=== PATIENT | male | born 1960 | race Caucasian/White ===

== ENCOUNTER → 2019-11-07 12:32 | Outpatient (BNVA) | payer MEDICARE, MEDICAID, SELFPAY | PROVIDERS: Family Provider Nurse Practitioner; PCP Nurse Practitioner; Visit Provider Nurse Practitioner Psychiatric/Mental Health | DX: F25.9 Schizoaffective disorder, unspecified (principal); F70 Mild intellectual disabilities | CPT/HCPCS: 99213 ==

== ENCOUNTER 2019-11-22 15:11 | Outpatient (CLI) | payer MEDICARE, MEDICAID, SELFPAY ==
--- NOTE | 2019-11-22 15:45 | USCV_ITS ---
Babar López Age: 59 Gender: M : 1960 Exam Date: 11/22/2019 15:49 Ordering Phys: Meron Robles Technologist: Monica Wray Exam Location: [facility] [place]_ Indication: PAIN CALF PROCEDURES: Venous duplex imaging was performed in only the left lower extremity. The following venous structures were evaluated: common femoral vein, profunda vein, proximal portion of the greater saphenous vein, superficial femoral vein, and the popliteal vein. In addition, the posterior tibial and peroneal trunk were evaluated. Serial compression, augmentation maneuvers, and spectral Doppler flow evaluation were performed. FINDINGS: Normal 2-D Doppler and augmentation and compressibility throughout the lower extremity venous structures. Additional imaging through the proximal calf veins also reveals no thrombus. Limited evaluation of the greater saphenous vein is patent with no thrombus. CONCLUSIONS No DVT left lower extremity. Dr. Saba Gauthier DO (Electronically Signed) Final Date: 22 November 2019 16:00 S
== END 2019-11-22 15:12 | disposition home or self-care (01) ==
LOC: RAD 15:24
PROVIDERS: Family Provider Nurse Practitioner; PCP Nurse Practitioner; Visit Provider Nurse Practitioner
DX: M79.605 Pain in left leg (principal); M79.662 Pain in left lower leg; Z86.718 Personal history of other venous thrombosis and embolism
CPT/HCPCS: 80053; 81003; 85025; 93971

== ENCOUNTER → 2020-01-02 14:59 | Outpatient (BNVA) | payer MEDICARE, MEDICAID, SELFPAY | PROVIDERS: Family Provider Nurse Practitioner; PCP Nurse Practitioner; Visit Provider Nurse Practitioner Psychiatric/Mental Health | DX: F25.9 Schizoaffective disorder, unspecified (principal); F79 Unspecified intellectual disabilities | CPT/HCPCS: 99212 ==

== ENCOUNTER → 2020-02-28 13:50 | Outpatient (BNVA) | payer MEDICARE, MEDICAID, SELFPAY | PROVIDERS: Family Provider Nurse Practitioner; PCP Nurse Practitioner; Visit Provider Nurse Practitioner | DX: R11.10 Vomiting, unspecified (principal); R11.2 Nausea with vomiting, unspecified | CPT/HCPCS: 81000 ==

== ENCOUNTER 2020-03-05 06:50 | Emergency (ER) | payer MEDICARE, MEDICAID, SELFPAY ==
[2020-03-05 07:06] VITALS: BP 123/83; PULSE 90; RESP 16; TEMP 37; O2SAT 98; BMI 22.5
--- NOTE | 2020-03-05 07:22 | ED_ITS ---
HPI - GI Bleed General: Chief complaint: GI Bleed Stated complaint: BLOODY STOOL/n/v Time Seen by Provider: 03/05/20 07:12 History of Present Illness: HPI Narrative: Mr. López Eckert is a pleasant MR schizo affective disorder patient to does not communicate very well. His caregiver says that he had some sickness earlier this week with nausea was was seen by DELICATESS[employer] DEPARTMENT MANAGER and and placed on some antinausea medication. She notes this morning that he threw up and it seemed to be dark possibly tarry and then also in his depends that he is wearing that he had a tarry-like substance. He has not been sick besides nausea he is now had no other instances of this occurring. MD complaint: melena and other (Possible gastric tar-like substance in his vomit x1 he did throw up on the way in and his caregiver brought the contents of that and it does not appear to have any blood in) Onset (ago): hour(s) Associated symptoms: Reports no associated symptoms and vomiting; Denies abdominal pain, chills, easy bruising, fever(s), headache(s), nausea or rash Review of Systems Const: Denies: fever, chills or body aches Eyes: Denies: change in vision or blurry vision ENMT: Denies: throat pain or nasal congestion Card: Denies: chest pain or shortness of breath on exertion Resp: Denies: shortness of breath, productive cough or non-productive cough GI: Reports: vomiting, coffee grounds in vomit (Possibly) and black tarry stool; Denies: abdominal pain or nausea : Denies: difficulty urinating Musc: Denies: extremity pain Skin/Breast: Denies: rash Neuro: Denies: headache Psych: Denies: anxiety or depression Bennett/Lymph: Denies: easy bruising PFSH ED PFSH: Social History Smoking and tobacco status: never smoked Alcohol intake: never Caregiver/support person: Yes (sister) Lives independently: No Household members: family Housing: House Marital status: Single Highest education level completed: High School Graduate service: No Current occupational status: disabled Pets and animals: Yes History of recent travel: No Current gender identity: Male Physical Exam Const: COMMON NORMALS: no apparent distress, average body habitus and oriented x3 HENMT: COMMON NORMALS: normocephalic HEAD & SCALP: normal to inspection and normocephalic FACE & SINUS: normal facial exam Eye: COMMON NORMALS: conjunctivae normal GENERAL EYE: normal appearance of both eyes CONJUNCTIVA: Yes conjunctivae normal Neck/C-Spine: COMMON NORMALS: no JVD Chest: COMMONS NORMALS: inspection of chest normal Resp: COMMON NORMALS: normal respiratory effort and clear to auscultation bilaterally AUSCULTATION: clear to auscultation bilaterally Cardio: COMMON NORMALS: no JVD, regular rate and regular rhythm RATE: regular rate RHYTHM: regular rhythm GI: COMMON NORMALS: normal to inspection, nondistended, normoactive bowel sounds RECTAL EXAM: Yes visual inspection normal, Yes normal sphincter tone and Yes heme positive stool trace Extremity: COMMON NORMALS: normal to inspection and full ROM Neuro: COMMON NORMALS: oriented x3 Procedures Stool Hemoccult Procedural Steps Taken: stool placed in appropriate test area, developer placed on stool and control areas and controls appropriately positive and negative Hemoccult result: positive (mildly) Course Vital Signs: Vital signs: Vital Signs Temperature 98.6 F 03/05/20 07:06 Pulse Rate 79 03/05/20 10:04 Respiratory Rate 15 03/05/20 10:04 Blood Pressure 151/86 03/05/20 10:04 Pulse Oximetry 97 03/05/20 10:04 MDM - GI Bleed MDM Narrative: Medical decision making narrative: Discussed case and lab (increased WBC and mild renal problems )and imaging results with Dr. Weber. agrees with plan. Lab Data: Labs: Lab Results 03/05/20 03/05/20 03/05/20 Range/Units 07:17 07:17 07:56 WBC 15.3 H (4.0-10.0) 10^3/ uL RBC 5.09 (4.1-5.3) 10^6/u L Hgb 14.9 (11.7-16.6) g/dL Hct 43.7 (42.0-52.0) % MCV 85.9 (80-94) fL MCH 29.3 (28.0-34.0) pg MCHC 34.1 (30.0-36.0) g/dL RDW 13.2 (12.1-15.1) % Plt Count 322 (130-400) 10^3/c mm MPV 10.0 (7.4-10.4) fL Neut % (Auto) 93.6 % Lymph % (Auto) 2.2 % [place] % (Auto) 3.8 % Eos % (Auto) 0.0 % Baso % (Auto) 0.1 % Neut # (Auto) 14.4 H (1.8-7.7) 10^3/u L Lymph # (Auto) 0.3 L (0.8-4.8) 10^3/u L [place] # (Auto) 0.6 (0.2-0.9) 10^3/u L Eos # (Auto) 0.0 (0.0-0.8) 10^3/u L Baso # (Auto) 0.0 (0.0-0.1) 10^3/u L Nucleated RBC % (a uto) 0 % Nucleated RBCs # 0.0 /100WBC Sodium 142 (136-145) mmol/L Potassium 4.2 (3.5-5.1) mmol/L Chloride 97 L (98-107) mmol/L Carbon Dioxide 32 H (22-29) mmol/L Anion Gap 17.2 (5-19) BUN 17 (8-23) mg/dL Creatinine 1.5 H (0.7-1.2) mg/dL GFR Calculation 47.7 L (90-130) mL/min Glucose 169 H (65-115) mg/dL Calculated Osmolal ity 294 (285-295) mOsm/k g Calcium 10.3 (8.5-10.5) mg/dL Total Bilirubin 0.6 (0.15-1.2) mg/dL AST 14 (0-40) U/L ALT 11 (0-41) U/L Alkaline Phosphata se 63 (40-130) IU/L Total Protein 8.2 (6.6-8.7) g/dL Albumin 4.5 (3.5-5.2) g/dL Globulin 3.7 (1.3-4.6) g/dL Lipase 55 (13-60) U/L Urine Color Yellow (Yellow) Urine Appearance Clear (CLEAR) Urine pH 5.0 (5-7) Ur Specific Gravit y 1.020 (1.005-1.030) Urine Protein Trace (Negative) Urine Glucose (UA) Norm (Normal) Urine Ketones 2+ H (Negative) Urine Blood Neg (Negative) Urine Nitrate Negative (Negative) Urine Bilirubin 1+ H (NEGATIVE) Urine Urobilinogen 1 H (Negative) mg/dL Ur Leukocyte Hannah ase Negative (Negative) Urine RBC 5-10 H (0-2) /hpf Urine WBC None (0-5) /hpf Ur Squamous Epith Cells 0-4 H (0-5) Urine Bacteria 1+ H (NONE) Hyaline Casts 5-10 H Urine Mucus 1+ Discharge Plan Discharge Patient Disposition: Home, Self-Care Clinical Impression: Melena Nausea with vomiting, unspecified Qualifiers: Vomiting type: hematemesis Qualified Code(s): K92.0 - Hematemesis Condition: Stable Prescriptions: New Zofran 4 mg tablet 4 mg PO Q8H PRN (Reason: nausea and vomiting) Qty: 20 RF: 0 Tagamet HB 200 mg tablet 200 mg PO TID Qty: 20 RF: 0 No Action cholecalciferol (vitamin D3) 5,000 unit capsule 5,000 unit PO DAILY RF: 0 aspirin 81 mg tablet,chewable 1 tab PO DAILY RF: 0 Risperdal Consta 37.5 mg/2 mL syringe 37.5 mg IM Q14D Qty: 1 RF: 6 meclizine 25 mg tablet 25 mg PO BID Qty: 10 RF: 0 montelukast [Singulair] 10 mg tablet 10 mg PO DAILY Qty: 30 RF: 1 simvastatin 20 mg tablet 20 mg PO DAILY Qty: 30 RF: 2 Risperdal 2 mg tablet 4 mg PO BEDTIME RF: 0 Lexapro 10 mg tablet 10 mg PO QAM RF: 0 Discharge Orders: Discharge Order (Routine); Ordered 03/05/20 Ordered By: Germain Thomas Referrals: Meron Robles FNP-C [Primary Care Provider] - Discharge Diet: Advance as tolerated Discharge Activity: Resume usual activity Patient Instructions: Gastrointestinal Bleeding (ED) Activity Restrictions/Additional Instructions: Follow-up with medical provider as directed. Take medications as prescribed. Return to the ER or your medical provider if condition worsens. Please read and understand discharge instructions. If any questions ask please. Follow-up with Meron TAVERAS to see about possible referral for gastroscope. Drink lots of fluid. Discharge Date/Time: 03/05/20 10:04 Coding Level of Care Code ED Element Winding Machine Tender for Chg Fwd Exam Comprehensive
--- NOTE | 2020-03-05 07:23 | CT_ITS ---
WS: [id number] CT abdomen pelvis w con* [id number] REASON FOR EXAM: GI bleed IV CONTRAST ADMINISTERED: Visi 95 mL TOTAL EXAM DLP: 611.[address] scans at [facility] use at least one of these dose optimization techniques: automat ed exposure control; mA and/or kV adjustment per patient size (includes targeted exams where dose is matched to clinical indication); or iterative reconstruction. FINDINGS: A hiatal hernia is noted. The lower lung parekh and mediastinum were normal. Interposition of the colon between the diaphragm and liver. The spleen was normal The stomach showed no definite ulcerated areas. The pancreas head, body, tail were normal. The liver showed no infiltrating changes showed normal enhancement. The aorta inferior vena cava were normal. Previous cholecystectomy changes. Both kidneys show good function the left kidney shows multiple small cysts. The ureters were normal bilaterally. The large bowel was normal including the appendix. Small bowel appear to be normal. The descending colon shows multiple diverticulosis. The sigmoid colon also shows scattered diverticul osis. The urinary bladder slightly thickened The prostate was normal. The lumbar spine and pelvis bony structures were normal. CT/CT abdomen pelvis w con* [id number] IMPRESSION: Extensive diverticulosis of the descending sigmoid colon area no diverticulitis . Status post cholecystectomy. The left kidney shows multiple small benign cysts. A hiatal hernia is noted Interposition of the colon between the diaphragm and liver.
[2020-03-05 07:30] LABS: Basophils % 0.1 %; Hematocrit 43.7 % (42.0-52.0); Hemoglobin 14.9 g/dL (11.7-16.6); Lymphocytes # 0.3 10^3/uL (0.8-4.8); Lymphocytes % 2.2 %; Mean Corpuscular HGB Conc 34.1 g/dL (30.0-36.0); Mean Corpuscular Hemoglobin 29.3 pg (28.0-34.0); Mean Corpuscular Volume 85.9 fL (80-94); Monocytes # 0.6 10^3/uL (0.2-0.9); Monocytes % 3.8 %; Neutrophils # 14.4 10^3/uL (1.8-7.7); Neutrophils % 93.6 %; Nucleated Red Blood Cells % 0 %; Platelet Count 322 10^3/cmm (130-400); Red Blood Count 5.09 10^6/uL (4.1-5.3); Red Cell Distribution Width 13.2 % (12.1-15.1); White Blood Count 15.3 10^3/uL (4.0-10.0)
[2020-03-05 07:47] LABS: Alanine Aminotransferase 11 U/L (0-41); Albumin Level 4.5 g/dL (3.5-5.2); Alkaline Phosphatase 63 IU/L (40-130); Anion Gap 17.2 (5-19); Aspartate Amino Transferase 14 U/L (0-40); Blood Urea Nitrogen 17 mg/dL (8-23); Calcium 10.3 mg/dL (8.5-10.5); Carbon Dioxide 32 mmol/L (22-29); Chloride 97 mmol/L (98-107); Globulin 3.7 g/dL (1.3-4.6); Glomerular Filtration Rate 47.7 mL/min (90-130); Glucose 169 mg/dL (65-115); Lipase 55 U/L (13-60); Osmolality Calculated 294 mOsm/kg (285-295); Potassium 4.2 mmol/L (3.5-5.1); Sodium 142 mmol/L (136-145); Total Bilirubin 0.6 mg/dL (0.15-1.2); Total Protein 8.2 g/dL (6.6-8.7)
[2020-03-05] MEDS: iodixanol 320 mg/mL 100mL Btl IV (08:07)
[2020-03-05] MEDS: ondansetron 2 mg/ML SDV 2 mL 4 MG IVP (08:19)
[2020-03-05 08:23] LABS: Add Urine Microscopic? YES; Bacteria Urine 1+; Bilirubin Urine 1+ (NEGATIVE); Blood Urine Neg (Negative); Glucose Urine UA Norm (Normal); Ketones Urine 2+ (Negative); Leukocyte Esterase Urine Negative (Negative); Mucus Urine 1+; Nitrate Urine Negative (Negative); Protein Urine Trace (Negative); Squamous Epithelial Cell Urine 0-4 (0-5); Urine Appearance Clear (CLEAR); Urine Color Yellow (Yellow); Urobilinogen Urine 1 mg/dL (Negative)
[2020-03-05 08:24] LABS: Add Urine Culture? No
[2020-03-05 10:04] VITALS: BP 151/86; PULSE 79; RESP 15; O2SAT 97
== END 2020-03-05 10:04 | disposition home or self-care (01) ==
PROVIDERS: Emergency Provider Nurse Practitioner Family; Family Provider Nurse Practitioner; PCP Nurse Practitioner
DX: K92.1 Melena (principal); K92.0 Hematemesis; Z79.82 Long term (current) use of aspirin
CPT/HCPCS: 12345; 74177; 80053; 81001; 82272; 83690; 85025; 96374; 96375; 99282; 99283; J2405; Q9967

== ENCOUNTER → 2020-03-08 15:09 | Outpatient (BNVA) | payer MEDICARE, MEDICAID, SELFPAY | PROVIDERS: Family Provider Nurse Practitioner; PCP Nurse Practitioner; Visit Provider Nurse Practitioner | DX: K52.9 Noninfective gastroenteritis and colitis, unspecified (principal); K29.71 Gastritis, unspecified, with bleeding | CPT/HCPCS: 85014; 85018 ==

== ENCOUNTER → 2020-03-11 15:05 | Outpatient (BNVA) | payer MEDICARE, MEDICAID, SELFPAY | PROVIDERS: Family Provider Nurse Practitioner; PCP Nurse Practitioner; Visit Provider Nurse Practitioner | DX: I10 Essential (primary) hypertension (principal); K92.2 Gastrointestinal hemorrhage, unspecified | CPT/HCPCS: 80053; 85025 ==

== ENCOUNTER → 2020-04-04 08:35 | Outpatient (BNVA) | payer MEDICARE, MEDICAID, SELFPAY | PROVIDERS: Family Provider Nurse Practitioner; PCP Nurse Practitioner; Visit Provider Nurse Practitioner Psychiatric/Mental Health | DX: F25.9 Schizoaffective disorder, unspecified (principal); F79 Unspecified intellectual disabilities | CPT/HCPCS: 99212 ==

== ENCOUNTER → 2020-04-17 16:22 | Outpatient (BNVA) | payer MEDICARE, MEDICAID, SELFPAY | PROVIDERS: Family Provider Nurse Practitioner; PCP Nurse Practitioner; Visit Provider Nurse Practitioner | DX: K29.71 Gastritis, unspecified, with bleeding (principal); I10 Essential (primary) hypertension | CPT/HCPCS: 80053; 81000; 85025 ==

== ENCOUNTER → 2020-07-04 08:37 | Outpatient (BNVA) | payer MEDICARE, MEDICAID, SELFPAY | PROVIDERS: Family Provider Nurse Practitioner; PCP Nurse Practitioner; Visit Provider Nurse Practitioner Psychiatric/Mental Health | DX: F25.9 Schizoaffective disorder, unspecified (principal); F79 Unspecified intellectual disabilities | CPT/HCPCS: 99212 ==

== ENCOUNTER → 2020-07-18 15:56 | Outpatient (BNVA) | payer MEDICARE, MEDICAID, SELFPAY | PROVIDERS: Family Provider Nurse Practitioner; PCP Nurse Practitioner; Visit Provider Nurse Practitioner | DX: E78.5 Hyperlipidemia, unspecified (principal); R73.03 Prediabetes | CPT/HCPCS: 80053; 80061; 83036; 85025 ==

== ENCOUNTER → 2020-10-03 08:36 | Outpatient (BNVA) | payer MEDICARE, MEDICAID, SELFPAY | PROVIDERS: Family Provider Nurse Practitioner; PCP Nurse Practitioner; Visit Provider Nurse Practitioner Psychiatric/Mental Health | DX: F25.9 Schizoaffective disorder, unspecified (principal); F79 Unspecified intellectual disabilities | CPT/HCPCS: G0463 ==

== ENCOUNTER → 2020-10-10 16:42 | Outpatient (BNVA) | payer MEDICARE, MEDICAID, SELFPAY | PROVIDERS: Family Provider Nurse Practitioner; PCP Nurse Practitioner; Visit Provider Nurse Practitioner | DX: E78.5 Hyperlipidemia, unspecified (principal); J30.9 Allergic rhinitis, unspecified; K29.70 Gastritis, unspecified, without bleeding | CPT/HCPCS: 80053; 80061; 85025 ==

== ENCOUNTER → 2020-12-02 12:00 | Outpatient (BNVA) | payer MEDICARE, MEDICAID, SELFPAY | PROVIDERS: Family Provider Nurse Practitioner; PCP Nurse Practitioner; Visit Provider Nurse Practitioner | DX: R10.9 Unspecified abdominal pain (principal) | CPT/HCPCS: 80053; 85025 ==

== ENCOUNTER → 2020-12-31 09:02 | Outpatient (BNVA) | payer MEDICARE, MEDICAID, SELFPAY | PROVIDERS: Family Provider Nurse Practitioner; PCP Nurse Practitioner; Visit Provider Nurse Practitioner Psychiatric/Mental Health | DX: F25.9 Schizoaffective disorder, unspecified (principal); F79 Unspecified intellectual disabilities | CPT/HCPCS: 99213 ==

== ENCOUNTER 2021-01-15 21:18 | Emergency (ER) | payer MEDICARE, MEDICAID, SELFPAY ==
[2021-01-15 21:40] VITALS: BP 117/84; PULSE 69; RESP 14; TEMP 36.9; O2SAT 97; BMI 22.4
--- NOTE | 2021-01-15 21:43 | XR_ITS ---
WS: [id number] XR chest 1V portable [id number] REASON FOR EXAM: cough and URI symptoms FINDINGS: The heart and mediastinum are within normal limits. Calcified granulomatous changes in both hemithoraces. No active pulmonary parenchymal or pleural dise ase. No significant abnormality of the bony thorax. XR/XR chest 1V portable [id number] IMPRESSION: No acute chest abnormality.
--- NOTE | 2021-01-15 21:44 | ED_ITS ---
HPI - COVID General: Chief Complaint: COVID symptoms Stated Complaint: cough,upper respiratory issues Time Seen by Provider: 01/15/21 21:38 Triage information: No fever, cough or shortness of breath . No known COVID + exposure last 14 days History of Present Illness: HPI Narrative: Patient has a 60-year-old male who comes to the ED with cough and fatigue. Patient has MR and his sister helps take care of him. She is here today and helping provide history. Symptoms started approximately 3 days ago. Cough is dry nonproductive. He had a fever couple days ago but today has not had a fever. He is eating and drinking well. denies any known Covid exposure. Denies any body aches, chills, chest pain, shortness of breath, abdominal pain, nausea/vomiting, bladder or bowel symptoms. COVID 19 common symptoms: positive fever(s), non-productive cough and fatigue; negative chills, productive cough, dyspnea, body aches, headache(s), throat pain, nasal congestion, nausea, vomiting or diarrhea COVID 19 other sytmptoms: negative chest pain COVID Results: Nasal/Oral Coronavirus 2019 PCR Pending 01/15/21 22:09 01/15/21 Review of Systems Const: Reports: fever(s) and fatigue; Denies: chills or body aches Eyes: Denies: change in vision or eye discomfort ENMT: Denies: throat pain, odynophagia, nasal discharge or nasal congestion Card: Denies: chest pain, palpitations, edema, swelling of feet/ankles, dyspnea on exertion or orthopnea Resp: Reports: non-productive cough; Denies: dyspnea or productive cough GI: Denies: abdominal pain, nausea, vomiting, diarrhea, constipation or hematochezia : Denies: flank pain, difficulty urinating, dysuria or hematuria Musc: Denies: neck pain, back pain or extremity swelling Skin/Breast: Denies: rash or new lesions Neuro: Denies: headache(s), numbness in extremities or weakness in extremities PFSH ED PFSH: Medical History Allergic rhinitis, unspecified Dyslipidemia Gastritis, unspecified, with bleeding GERD without esophagitis History of DVT (deep vein thrombosis) History of seizures as a child Hypertension Intellectual disability Schizoaffective disorder Vitamin D insufficiency Surgical History No history of previous surgery Family History Father Cancer Colon Cancer Social History Smoking and tobacco status: never smoked Second hand smoke exposure: No Smoking risk assessment/counseling performed?: No Alcohol intake: never Desire information about alcohol rehabilitation?: No Counseling given: No Desire information about substance/drug rehabilitation?: No Counseling given: No Caregiver/support person: Yes (sister) Lives independently: No Household members: family Housing: House Marital status: Single Highest education level completed: High School Graduate service: No Current occupational status: disabled Pets and animals: Yes History of recent travel: No Current gender identity: Male Physical Exam Const: COMMON NORMALS: no acute distress, patient oriented x3 and alert EXAM LIMITATIONS: other limitations (Patient has intellectual disability and did not communicate during history ) GENERAL APPEARANCE: cooperative and comfortable HENMT: COMMON NORMALS: normocephalic HEAD & SCALP: normocephalic MOUTH: Normal oral and palatal mucosa present THROAT: posterior oropharynx normal and uvula midline Neck/C-Spine: COMMON NORMALS: supple GENERAL: Yes normal visual inspection Resp: COMMON NORMALS: normal respiratory effort, No retractions and No use of accessory muscles EFFORT & INSPECTION: No tachypneic, No respiratory distress and No labored AUSCULTATION: crackles (Left lower lung faint crackling?all other lung parekh were clear to auscult) Laterality: left (Faint crackling heard to the left posterior base of lung.) Cardio: COMMON NORMALS: regular rate, regular rhythm, S1 normal heart sound present, S2 normal heart sound present, No gallops present (Cardio), No clicks present (Cardio), No murmurs present (Cardio) and Peripheral pulses 2+ throughout RATE: regular rate RHYTHM: regular rhythm HEART SOUNDS: S1 normal heart sound present and S2 normal heart sound present PERIPHERAL PULSES: Peripheral pulses 2+ throughout GI: COMMON NORMALS: Normal to inspection, nondistended, normoactive bowel sounds present, Soft to palpation, non-tender and no masses PALPATION: Yes Soft to palpation : COMMON NORMALS: Yes no CVA tenderness BLADDER/KIDNEY EXAM: Yes no CVA tenderness Back/Pelvis: COMMON NORMALS: no CVA tenderness Extremity: COMMON NORMALS: normal to inspection Neuro: COMMON NORMALS: patient oriented x3 and moves all extremities SENSORIUM/ORIENTATION: Yes alert Skin: GENERAL SKIN EXAM: dry skin Course Vital Signs: Vital signs: Vital Signs Temperature 98.4 F 01/15/21 21:40 Pulse Rate 63 01/15/21 23:24 Respiratory Rate 18 01/15/21 23:24 Blood Pressure 109/73 01/15/21 23:24 Pulse Oximetry 95 01/15/21 23:24 MDM - COVID MDM Narrative: Medical decision making narrative: Patient is a 60-year-old male comes to the ED with cough and fatigue. Patient has an intellectual disability and his sister helps take care of him and is present here in the ED. She says that for the past couple days patient has developed a cough a fever and seems fatigued. Exam shows some mild crackling in the lower left lung field and the rest of patient's lungs were clear to auscultation bilaterally. He appears in no acute respiratory distress and vitals are stable. Chest x-ray shows some developing infiltrates in the left lower lobe. Influenza was negative and Covid testing is pending. Patient was given a dose of azithromycin and Solu-Medrol while here in the ED. He was diagnosed with pneumonia and discharged home with azithromycin prescription. Told to follow-up with PCP in 7 to 10 days for reevaluation. Return to ED precautions given. Patient and patient's sister understood and agreed with plan. Lab Data: Attestation: I reviewed the patient's lab results. Labs: Lab Results 01/15/21 Range/Units 22:09 Influenza Type A A g Negative (Negative) Influenza Type B A g Negative (Negative) Imaging Data: CXR: Attestation: I personally reviewed and interpreted this imaging study as follows: My impression: Chest x-ray shows left lower lobe infiltrate developing. Findings suggestive of pneumonia. COVID Results: Nasal/Oral Coronavirus 2019 PCR Pending 01/15/21 22:09 01/15/21 Discharge Plan Discharge Patient Disposition: Home Clinical Impression: Pneumonia Qualifiers: Pneumonia type: due to unspecified organism Laterality: left Lung location: lower lobe of lung Qualified Code(s): J18.9 - Pneumonia, unspecified organism Condition: Stable Prescriptions: New azithromycin 250 mg tablet 250 mg PO DAILY 4 Days Qty: 4 RF: 0 No Action cholecalciferol (vitamin D3) 5,000 unit capsule 5,000 unit PO DAILY RF: 0 simvastatin 20 mg tablet 20 mg PO DAILY Qty: 90 RF: 1 montelukast [Singulair] 10 mg tablet 10 mg PO DAILY Qty: 90 RF: 1 sucralfate [Carafate] 100 mg/mL suspension 10 ml PO TID PRN (Reason: acid reflux) Qty: 560 RF: 1 Lexapro 10 mg tablet 10 mg PO QAM Qty: 30 RF: 2 Risperdal 2 mg tablet 4 mg PO BEDTIME Qty: 60 RF: 2 Risperdal Consta 37.5 mg/2 mL suspension,extended rel recon 37.5 mg IM Q14D Qty: 1 RF: 5 Discharge Orders: Discharge ED (Routine); Ordered 01/15/21 Ordered By: Abdi Stahl Referrals: Meron Robles, EDGE FINISHER-C [Primary Care Provider] - Discharge Diet: Regular Discharge Activity: Limit activity as instructed Patient Instructions: Pneumonia (ED) Activity Restrictions/Additional Instructions: Follow-up with medical provider as directed in 7-10 days. COVID testing was performed and sent to lab and results will be back in 1 to 2 days. [facility] should contact you to let you know Covid results, but you can also contact [facility] to find out results as well. Self quarantine until you get Covid results. If positive self quarantine for the next 12 days. Take ibuprofen or Tylenol for fevers. Drink plenty of fluids and stay hydrated. Symptom management with [id number] cough and nasal decongestant meds. Return to the ER or your medical provider if condition worsens. Please read and understand discharge instructions. If any questions, please ask Coding Level of Care Code ED Tabber for Brenda Fwd Exam Comprehensive
[2021-01-15 22:09] VITALS: O2SAT 96
[2021-01-15 22:41] LABS: Influenza A by IFA Negative (Negative); Influenza B by IFA Negative (Negative)
[2021-01-15] MEDS: azithromycin 250 mg Tablet 500 MG PO (23:15)
[2021-01-15 23:24] VITALS: BP 109/73; PULSE 63; RESP 18; O2SAT 95
[2021-01-16 14:10] LABS: Coronavirus Test Green County Not Detected
--- NOTE | 2021-01-16 16:10 | PC.NURSE ---
Patient notified of COVID results at this time.
== END 2021-01-15 23:24 | disposition home or self-care (01) ==
PROVIDERS: Emergency Provider Physician Assistant; PCP Nurse Practitioner
DX: J18.9 Pneumonia, unspecified organism (principal); E78.5 Hyperlipidemia, unspecified; I10 Essential (primary) hypertension
CPT/HCPCS: 71045; 87635; 87804; 96372; 99283; J2930; Q0144

== ENCOUNTER → 2021-04-03 08:09 | Outpatient (BNVA) | payer MEDICARE, MEDICAID, SELFPAY | PROVIDERS: PCP Nurse Practitioner; Visit Provider Nurse Practitioner Psychiatric/Mental Health | DX: F25.9 Schizoaffective disorder, unspecified (principal); F79 Unspecified intellectual disabilities | CPT/HCPCS: 99213 ==

== ENCOUNTER 2021-06-05 12:38 | Emergency (ER) | payer MEDICARE, MEDICAID, SELFPAY ==
[2021-06-05 13:27] VITALS: BP 110/72; PULSE 80; RESP 19; TEMP 37.2; O2SAT 95
[2021-06-05 17:32] VITALS: BP 128/73; PULSE 90; RESP 18; O2SAT 98
[2021-06-05 18:11] LABS: Alanine Aminotransferase 7 U/L (0-41); Albumin Level 4.1 g/dL (3.5-5.2); Alkaline Phosphatase 57 IU/L (40-130); Aspartate Amino Transferase 10 U/L (0-40); Blood Urea Nitrogen 18 mg/dL (8-23); Calcium 8.9 mg/dL (8.5-10.5); Carbon Dioxide 28 mmol/L (22-29); Chloride 102 mmol/L (98-107); Globulin 2.8 g/dL (1.3-4.6); Glomerular Filtration Rate 68.1 mL/min (90-130); Glucose 95 mg/dL (65-115); Lipase 33 U/L (13-60); Osmolality Calculated 294 mOsm/kg (285-295); Sodium 141 mmol/L (136-145); Total Bilirubin 0.7 mg/dL (0.15-1.2); Total Protein 6.9 g/dL (6.6-8.7)
[2021-06-05 18:14] LABS: SARS Covid-2 Antigen Negative (Negative)
--- NOTE | 2021-06-05 18:16 | W.ED.GENADLT ---
HPI - General Adult General: Chief complaint: Abdominal Pain Stated complaint: ULCER PROBLEMS,STATES COFFEE GROUND EMESIS Time Seen by Provider: 06/05/21 16:12 History of Present Illness: HPI narrative: Patient is a 61-year-old male with a history of peptic ulcer medically treated on Carafate presenting to emergency room after 1 episode of coffee-ground emesis earlier today. Per patient's caregiver, patient was noted to have mild epigastric pain and earlier this morning, vomited coffee-ground substance with clots and streaks of blood. Of note, earlier this year, patient underwent a EGD study and has multiple ulcers in the stomach. Patient denies any melena or hematochezia. Patient was told by his primary care provider to go to the emergency room for evaluation. No chest complaints of chest pain, shortness of breath, cough, runny nose sore throat, fever/CHILLS or urinary symptoms. Onset: 7 hrs ago Duration: 1 episode Location: home Intensity: moderate Review of Systems Narrative: Constitutional: no subjective fever, no generalized weakness HEENT: No vision changes CV: No chest pain, no palpitations PULM: no cough, nodyspnea. GI: + mild abdominal pain, no N/V/D. +coffee ground emesis : No dysuria MSKEL: No muscle pain SKIN: No new rashes, no lesions. NEURO: No headache, no focal weakness. HEME: No visible bruises PSYCH: Normal mood PFSH ED PFSH: Medical History Allergic rhinitis, unspecified Dyslipidemia Gastritis, unspecified, with bleeding GERD without esophagitis History of DVT (deep vein thrombosis) History of seizures as a child Hypertension Intellectual disability Schizoaffective disorder Vitamin D insufficiency Surgical History No history of previous surgery Family History Father Cancer Colon Cancer Social History Smoking and tobacco status: never smoked Second hand smoke exposure: No Smoking risk assessment/counseling performed?: No Alcohol intake: never Desire information about alcohol rehabilitation?: No Counseling given: No Desire information about substance/drug rehabilitation?: No Counseling given: No Caregiver/support person: Yes (sister) Lives independently: No Household members: family Housing: House Marital status: Single Highest education level completed: High School Graduate service: No Current occupational status: disabled Pets and animals: Yes History of recent travel: No Current gender identity: Male Physical Exam Narrative: EXAM NARRATIVE: Head: Atraumatic Eyes: PERRL, conjunctiva without injection ENT: Mucous membrane moist NECK: Supple without lymphadenopathy LUNGS: LCAB, no crackles/rhonchi or rales CV: RRR ABDOMEN: Soft, mild midepigastric tenderness to palpation, no guarding or rebound tenderness EXTREMITY: Normal ROM SKIN: No rash or erythema NEURO: Awake and alert. No focal motor deficits. PSYCH: Normal mood and affect. Rectal: no melena or hemoocult blood in stool Course Vital Signs: Vital signs: Vital Signs Temperature 98.7 F 06/05/21 21:20 Pulse Rate 58 L 06/05/21 21:20 Respiratory Rate 18 06/05/21 21:20 Blood Pressure 132/76 06/05/21 21:20 Pulse Oximetry 98 06/05/21 21:20 MDM - General Adult MDM Narrative: Medical decision making narrative: [61]yo patient w/ hx of peptic presenting to the ED w/ + abdominal pain + mixed coffee ground x 1 episode. Given history and exam patient?s presentation most consistent with upper GI bleed possibly secondary to peptic ulcer disease or variceal bleeding. History, presentation, exam and wokrup unlikely to be aortoenteric fistula, ENT bleeding mimic, Boerhaave?s/retching, Pulmonary bleeding mimic, or dieulafoy lesion. Workup: CBC, BMP, LFTs, Lipase, PT/INR, Type and Screen, lactic acid, blood culture, EKG, and XR chest. No hx of variceal bleeding Interventions: 1L NS Protonix 40mg IVP Patient is stable today. Patient is noted to mildly hemoconcentrated 15.2. Would not transfuse today. Given ongoing Covid situation with no floor beds at this time, patient will be transferred to outside hospital for further evaluation including EGD. Case discussed with Dr. Ford at [facility] in [place]. Disposition: Transfer to outside hospital. Lab Data: Labs: Lab Results 06/05/21 06/05/21 06/05/21 Range/Units 16:32 16:32 16:32 WBC 6.4 (4.0-10.0) 10^3/ uL RBC 4.89 (4.1-5.3) 10^6/u L Hgb 15.2 (11.7-16.6) g/dL Hct 43.1 (42.0-52.0) % MCV 88.1 (80-94) fL MCH 31.1 (28.0-34.0) pg MCHC 35.3 (30.0-36.0) g/dL RDW 12.7 (12.1-15.1) % Plt Count 249 (130-400) 10^3/c mm MPV 10.2 (7.4-10.4) fL Neut % (Auto) 74.3 % Lymph % (Auto) 17.9 % Major % (Auto) 7.1 % Eos % (Auto) 0.2 % Baso % (Auto) 0.3 % Neut # (Auto) 4.74 (1.8-7.7) 10^3/u L Lymph # (Auto) 1.1 (0.8-4.8) 10^3/u L Major # (Auto) 0.5 (0.2-0.9) 10^3/u L Eos # (Auto) 0.0 (0.0-0.8) 10^3/u L Baso # (Auto) 0.0 (0.0-0.1) 10^3/u L Nucleated RBC % (a uto) 0 % Nucleated RBCs # 0.0 /100WBC PT (12.1-14.9) SECO NDS INR (0.8-1.2) APTT (23.9-36.7) SECO NDS Sodium 141 (136-145) mmol/L Potassium 3.9 (3.5-5.1) mmol/L Chloride 102 (98-107) mmol/L Carbon Dioxide 28 (22-29) mmol/L Anion Gap 14.9 (5-19) BUN 18 (8-23) mg/dL Creatinine 1.1 (0.7-1.2) mg/dL GFR Calculation 68.1 L (90-130) mL/min Glucose 95 (65-115) mg/dL Calculated Osmolal ity 294 (285-295) mOsm/k g Calcium 8.9 (8.5-10.5) mg/dL Total Bilirubin 0.7 (0.15-1.2) mg/dL AST 10 (0-40) U/L ALT 7 (0-41) U/L Alkaline Phosphata se 57 (40-130) IU/L Total Protein 6.9 (6.6-8.7) g/dL Albumin 4.1 (3.5-5.2) g/dL Globulin 2.8 (1.3-4.6) g/dL Lipase 33 (13-60) U/L H. pylori IgG Anti body Negative (Negative) SARS-CoV-2 Ag (Rap id) (Negative) Blood Type Rho(D) Type Antibody Screen 06/05/21 06/05/21 06/05/21 Range/Units 17:42 19:58 20:07 WBC (4.0-10.0) 10^3/ uL RBC (4.1-5.3) 10^6/u L Hgb (11.7-16.6) g/dL Hct (42.0-52.0) % MCV (80-94) fL MCH (28.0-34.0) pg MCHC (30.0-36.0) g/dL RDW (12.1-15.1) % Plt Count (130-400) 10^3/c mm MPV (7.4-10.4) fL Neut % (Auto) % Lymph % (Auto) % Major % (Auto) % Eos % (Auto) % Baso % (Auto) % Neut # (Auto) (1.8-7.7) 10^3/u L Lymph # (Auto) (0.8-4.8) 10^3/u L Major # (Auto) (0.2-0.9) 10^3/u L Eos # (Auto) (0.0-0.8) 10^3/u L Baso # (Auto) (0.0-0.1) 10^3/u L Nucleated RBC % (a uto) % Nucleated RBCs # /100WBC PT 13.50 (12.1-14.9) SECO NDS INR 1.00 (0.8-1.2) APTT 23.2 L (23.9-36.7) SECO NDS Sodium (136-145) mmol/L Potassium (3.5-5.1) mmol/L Chloride (98-107) mmol/L Carbon Dioxide (22-29) mmol/L Anion Gap (5-19) BUN (8-23) mg/dL Creatinine (0.7-1.2) mg/dL GFR Calculation (90-130) mL/min Glucose (65-115) mg/dL Calculated Osmolal ity (285-295) mOsm/k g Calcium (8.5-10.5) mg/dL Total Bilirubin (0.15-1.2) mg/dL AST (0-40) U/L ALT (0-41) U/L Alkaline Phosphata se (40-130) IU/L Total Protein (6.6-8.7) g/dL Albumin (3.5-5.2) g/dL Globulin (1.3-4.6) g/dL Lipase (13-60) U/L H. pylori IgG Anti body (Negative) SARS-CoV-2 Ag (Rap id) Negative (Negative) Blood Type A Positive Rho(D) Type Positive / 4+ Antibody Screen Negative Discharge Plan Discharge Patient Disposition: Transfer to ED Prescriptions: No Action cholecalciferol (vitamin D3) 5,000 unit capsule 5,000 unit PO DAILY RF: 0 cetirizine [Zyrtec] 10 mg tablet 10 mg PO DAILY Qty: 30 RF: 5 simvastatin 20 mg tablet 20 mg PO DAILY Qty: 90 RF: 1 sucralfate [Carafate] 100 mg/mL suspension 10 ml PO TID PRN (Reason: acid reflux) Qty: 560 RF: 1 Risperdal 2 mg tablet 4 mg PO BEDTIME Qty: 60 RF: 2 Risperdal Consta 37.5 mg/2 mL suspension,extended rel recon 37.5 mg IM Q14D Qty: 2 RF: 4 Stool Softener (docusate saroj) 240 mg Capsule 240 mg PO DAILY RF: 0 Lexapro 10 mg tablet 10 mg PO DAILY RF: 0 Referrals: Meron Robles, [employer] [Primary Care Provider] - Coding Level of Care Code ED Induction Brazer for g Fwfortino
[2021-06-05] MEDS: pantoprazole 40 mg SDV 80 MG IVP (18:22)
[2021-06-05 18:24] VITALS: BP 115/72; PULSE 54; RESP 16; O2SAT 99
[2021-06-05 18:39] LABS: H. Pylori IgG Antibody Negative (Negative)
[2021-06-05 18:40] LABS: Anion Gap 14.9 (5-19); Potassium 3.9 mmol/L (3.5-5.1)
[2021-06-05 18:44] LABS: Basophils % 0.3 %; Eosinophils % 0.2 %; Hematocrit 43.1 % (42.0-52.0); Hemoglobin 15.2 g/dL (11.7-16.6); Lymphocytes # 1.1 10^3/uL (0.8-4.8); Lymphocytes % 17.9 %; Mean Corpuscular HGB Conc 35.3 g/dL (30.0-36.0); Mean Corpuscular Hemoglobin 31.1 pg (28.0-34.0); Mean Corpuscular Volume 88.1 fL (80-94); Mean Platelet Volume 10.2 fL (7.4-10.4); Monocytes # 0.5 10^3/uL (0.2-0.9); Monocytes % 7.1 %; Neutrophils # 4.74 10^3/uL (1.8-7.7); Neutrophils % 74.3 %; Nucleated Red Blood Cells % 0 %; Platelet Count 249 10^3/cmm (130-400); Red Blood Count 4.89 10^6/uL (4.1-5.3); Red Cell Distribution Width 12.7 % (12.1-15.1); White Blood Count 6.4 10^3/uL (4.0-10.0)
[2021-06-05 20:00] VITALS: BP 119/70; PULSE 56; RESP 16; O2SAT 98
[2021-06-05] MEDS: sodium chloride 0.9% 1,000 ML 999 ML IV (20:04)
[2021-06-05 20:34] LABS: Partial Thromboplastin Time 23.2 SECONDS (23.9-36.7)
[2021-06-05 21:20] VITALS: BP 132/76; PULSE 58; RESP 18; TEMP 37.1; O2SAT 98
[2021-06-06 16:16] LABS: Coronavirus Test Green County Not Detected
--- NOTE | 2021-06-07 17:32 | PC.NURSE ---
NOTIFIED PT'S CHANCE MCMAHON NEGATIVE COVID 19 RESULT
== END 2021-06-05 21:50 ==
PROVIDERS: Physician Assistant; Emergency Provider Emergency Medicine; PCP Nurse Practitioner
DX: R10.9 Unspecified abdominal pain (principal); E78.5 Hyperlipidemia, unspecified; I10 Essential (primary) hypertension; Z20.822 Contact with and (suspected) exposure to COVID-19
CPT/HCPCS: 80053; 83690; 85025; 85610; 85730; 86677; 86850; 86900; 87040; 87426; 87635; 96361; 96374; 99284; C9113; J7030

== ENCOUNTER → 2021-06-19 11:18 | Outpatient (BNVA) | payer MEDICARE, MEDICAID, SELFPAY | PROVIDERS: PCP Nurse Practitioner; Visit Provider Nurse Practitioner | DX: Z20.822 Contact with and (suspected) exposure to COVID-19 (principal); K29.70 Gastritis, unspecified, without bleeding; I10 Essential (primary) hypertension | CPT/HCPCS: 87635 ==

== ENCOUNTER 2021-06-23 12:46 | Outpatient (CLI) | payer MEDICARE, MEDICAID, SELFPAY ==
[2021-06-23 13:42] VITALS: BP 118/75; PULSE 81; RESP 24; TEMP 38.5; O2SAT 96; BMI 20.3
[2021-06-23 14:09] VITALS: BP 121/81; PULSE 73; RESP 18; O2SAT 98
[2021-06-23 15:06] VITALS: BP 125/81; PULSE 69; RESP 18; TEMP 37.3; O2SAT 97
== END 2021-06-23 12:47 | disposition home or self-care (01) ==
PROVIDERS: PCP Nurse Practitioner; Visit Provider Nurse Practitioner
DX: U07.1 COVID-19 (principal)
CPT/HCPCS: 96365

== ENCOUNTER 2021-06-29 18:02 | Inpatient (IN) | payer MEDICARE, MEDICAID, SELFPAY ==
[2021-06-29 18:21] VITALS: BP 127/79; PULSE 87; RESP 20; TEMP 36.8; O2SAT 97; BMI 21.8
--- NOTE | 2021-06-29 19:30 | PC.NURSE ---
pt physician gave order not to change pt to paper scrubs
[2021-06-29 19:42] LABS: Basophils % 0.3 %; Eosinophils # 0.1 10^3/uL (0.0-0.8); Eosinophils % 1.2 %; Hematocrit 38.1 % (42.0-52.0); Lymphocytes % 16.4 %; Mean Corpuscular HGB Conc 34.1 g/dL (30.0-36.0); Mean Corpuscular Hemoglobin 30.7 pg (28.0-34.0); Mean Corpuscular Volume 89.9 fl (80-94); Mean Platelet Volume 9.3 fL (7.4-10.4); Monocytes # 0.5 10^3/uL (0.2-0.9); Monocytes % 7.6 %; Neutrophils % 74.2 %; Nucleated Red Blood Cells % 0 %; Platelet Count 362 10^3/cmm (130-400); Red Blood Count 4.24 10^6/uL (4.1-5.3); Red Cell Distribution Width 12.8 % (12.1-15.1); White Blood Count 5.9 10^3/uL (4.0-10.0)
[2021-06-29 19:53] LABS: Amphetamines Screen Urine Negative (Negative); Barbiturates Screen Urine Negative (Negative); Benzodiazepines Screen Urine Negative (Negative); Cocaine Screen Urine Negative (Negative); Opiate Screen Urine Negative (Negative); PCP Screen Urine Negative (Negative); THC Screen Urine Negative (Negative)
[2021-06-29 19:59] LABS: Alanine Aminotransferase 9 U/L (0-41); Albumin Level 3.7 g/dL (3.5-5.2); Alkaline Phosphatase 66 IU/L (40-130); Anion Gap 17.9 (5-19); Aspartate Amino Transferase 15 U/L (0-40); Blood Urea Nitrogen 16 mg/dL (8-23); Calcium 9.1 mg/dL (8.5-10.5); Carbon Dioxide 24 mmol/L (22-29); Chloride 103 mmol/L (98-107); Globulin 3.4 g/dL (1.3-4.6); Glucose 90 mg/dL (65-115); Osmolality Calculated 293 mOsm/kg (285-295); Potassium 3.9 mmol/L (3.5-5.1); Sodium 141 mmol/L (136-145); Total Bilirubin 0.6 mg/dL (0.15-1.2); Total Protein 7.1 g/dL (6.6-8.7)
[2021-06-29 20:07] LABS: Add Urine Microscopic? YES; Bilirubin Urine 1+ (Negative); Blood Urine 2+ (Negative); Glucose Urine UA Norm (Normal); Ketones Urine 1+ (Negative); Leukocyte Esterase Urine Negative (Negative); Nitrate Urine Negative (Negative); Protein Urine Neg (Negative); Urine Appearance Clear (CLEAR); Urine Color Yellow (Yellow); Urobilinogen Urine 1 mg/dL (Negative); pH Urine 5 (5-7)
[2021-06-29 20:09] LABS: Add Urine Culture? Yes; Bacteria Urine TRACE /hpf; RBC Urine 15-25 /hpf (0-2); Squamous Epithelial Cell Urine 0-4 /hpf (0-5); WBC Urine 0-4 /hpf (0-5)
[2021-06-29 20:13] LABS: Acetaminophen < 5.0 ug/mL (10-30); Alcohol Level < 10 mg/dL (0-10); Salicylate < 0.3 mg/dL (3-10)
--- NOTE | 2021-06-29 20:30 | PC.NURSE ---
Pt pacing around the room, cursing but redirectable. Calm and not violent. MD notified; he ordered pt's night dose of risperidone.
[2021-06-29] MEDS: haloperidol inj 5 mg/mL INJ 1 mL IM ×2 (20:48→23:23)
[2021-06-29] MEDS: diphenhydrAMINE 50 mg/mL SDV 1mL 25 MG IM (20:48)
[2021-06-29 20:51] VITALS: BP 137/85; PULSE 76; RESP 20; TEMP 36.6; O2SAT 96
[2021-06-29 21:52] VITALS: RESP 18
--- NOTE | 2021-06-29 22:12 | W.ED.PSYCH ---
HPI - Psych General: Chief Complaint: Psychiatric Symptoms Stated Complaint: ams Time Seen by Provider: 06/29/21 18:28 Source: family Mode of arrival: ambulatory Limitations: altered mental status History of Present Illness: HPI Narrative: 61-year-old male who was brought into the emergency department by his sister with worsening behavioral issues. He has a history of schizophrenia and is on several antipsychotics. According to sister he was treated for COVID-19 about 3 weeks ago and ever since then he has not gotten back to his baseline. For the last few weeks he has not been sleeping well at night and yesterday he did not sleep a total at night, was up throughout the night thrush in the house turning on the stove risking fire, and being a little aggressive. Because of these the sister brought him into the emergency department for evaluation. Review of Systems General: Reports: ROS unobtainable due to mental status [facility] ED PFSH: Medical History (Reviewed 06/29/21 @ 22:45 by Chris Gage MD, [facility] [place]) Allergic rhinitis, unspecified Dyslipidemia Gastritis, unspecified, with bleeding GERD without esophagitis History of DVT (deep vein thrombosis) History of seizures as a child Hypertension Intellectual disability Schizoaffective disorder Vitamin D insufficiency Surgical History No history of previous surgery Family History Father Cancer Colon Cancer Social History (Reviewed 06/29/21 @ 22:45 by Chris Gage MD, [facility] [place]) Smoking and tobacco status: never smoked Second hand smoke exposure: No Smoking risk assessment/counseling performed?: No Alcohol intake: never Desire information about alcohol rehabilitation?: No Counseling given: No Desire information about substance/drug rehabilitation?: No Counseling given: No Caregiver/support person: Yes (sister) Lives independently: No Household members: family Housing: House Marital status: Single Highest education level completed: High School Graduate service: No Current occupational status: disabled Pets and animals: Yes History of recent travel: No Current gender identity: Male Physical Exam Const: COMMON NORMALS: no acute distress, average body habitus, no limitations, healthy appearing, alert and well nourished HENMT: COMMON NORMALS: normocephalic, atraumatic and moist oral mucous membranes HEAD & SCALP: normocephalic and atraumatic Neck/C-Spine: COMMON NORMALS: no meningeal signs and no JVD Resp: COMMON NORMALS: normal respiratory effort, No retractions, No use of accessory muscles, clear to auscultation bilaterally and percussion normal AUSCULTATION: clear to auscultation bilaterally PERCUSSION: percussion normal Cardio: COMMON NORMALS: no JVD, regular rate, regular rhythm, S1 normal heart sound present, S2 normal heart sound present, No gallops present (Cardio), No clicks present (Cardio), No murmurs present (Cardio), No rub (Cardio) and Peripheral pulses 2+ throughout RATE: regular rate RHYTHM: regular rhythm HEART SOUNDS: S1 normal heart sound present and S2 normal heart sound present PERIPHERAL PULSES: Peripheral pulses 2+ throughout GI: COMMON NORMALS: Normal to inspection, nondistended, normoactive bowel sounds present, Soft to palpation, non-tender, No hepatosplenomegaly present, no masses and no bruits PALPATION: Yes Soft to palpation and Yes No hepatosplenomegaly present Extremity: COMMON NORMALS: normal to inspection, full ROM, capillary refill normal, no calf tenderness and no pedal edema Neuro: SENSORIUM/ORIENTATION: Yes alert MENINGEAL SIGNS: Yes no meningeal signs Course Consultations: Consultation #1: Discussed the patient with Dr. Rascon, psychiatrist. He kindly accepted the patient to his service. Time: 20:36 Vital Signs: Vital signs: Vital Signs Temperature 97.9 F 06/29/21 20:51 Pulse Rate 76 06/29/21 20:51 Respiratory Rate 18 06/29/21 21:52 Blood Pressure 137/85 06/29/21 20:51 Pulse Oximetry 96 06/29/21 20:51 MDM - Psych MDM Narrative: Medical decision making narrative: 61-year-old male with a history of schizophrenia who presents to the emergency department with behavioral issues. He is medically cleared and is admitted to the neuropsychiatric unit for further evaluation and management. Medical Records: Attestation: I reviewed the patient's medical records. Lab Data: Attestation: I reviewed the patient's lab results. Labs: Lab Results 06/29/21 06/29/21 06/29/21 Range/Units 19:21 19:21 19:21 WBC 5.9 (4.0-10.0) 10^3/ uL RBC 4.24 (4.1-5.3) 10^6/u L Hgb 13.0 (11.7-16.6) g/dL Hct 38.1 L (42.0-52.0) % MCV 89.9 (80-94) fl MCH 30.7 (28.0-34.0) pg MCHC 34.1 (30.0-36.0) g/dL RDW 12.8 (12.1-15.1) % Plt Count 362 (130-400) 10^3/c mm MPV 9.3 (7.4-10.4) fL Neut % (Auto) 74.2 % Lymph % (Auto) 16.4 % Payne % (Auto) 7.6 % Eos % (Auto) 1.2 % Baso % (Auto) 0.3 % Neut # (Auto) 4.40 (1.8-7.7) 10^3/u L Lymph # (Auto) 1.0 (0.8-4.8) 10^3/u L Payne # (Auto) 0.5 (0.2-0.9) 10^3/u L Eos # (Auto) 0.1 (0.0-0.8) 10^3/u L Baso # (Auto) 0.0 (0.0-0.1) 10^3/u L Nucleated RBC % (a uto) 0 % Nucleated RBCs # 0.0 /100WBC Sodium 141 (136-145) mmol/L Potassium 3.9 (3.5-5.1) mmol/L Chloride 103 (98-107) mmol/L Carbon Dioxide 24 (22-29) mmol/L Anion Gap 17.9 (5-19) BUN 16 (8-23) mg/dL Creatinine 1.0 (0.7-1.2) mg/dL GFR Calculation 76.0 L (90-130) mL/min Glucose 90 (65-115) mg/dL Calculated Osmolal ity 293 (285-295) mOsm/k g Calcium 9.1 (8.5-10.5) mg/dL Total Bilirubin 0.6 (0.15-1.2) mg/dL AST 15 (0-40) U/L ALT 9 (0-41) U/L Alkaline Phosphata se 66 (40-130) IU/L Total Protein 7.1 (6.6-8.7) g/dL Albumin 3.7 (3.5-5.2) g/dL Globulin 3.4 (1.3-4.6) g/dL Urine Color Yellow (Yellow) Urine Appearance Clear (CLEAR) Urine pH 5 (5-7) Ur Specific Gravit y 1.020 (1.005-1.030) Urine Protein Neg (Negative) Urine Glucose (UA) Norm (Normal) Urine Ketones 1+ H (Negative) Urine Blood 2+ H (Negative) Urine Nitrate Negative (Negative) Urine Bilirubin 1+ H (Negative) Urine Urobilinogen 1 H (Negative) mg/dL Ur Leukocyte Hannah ase Negative (Negative) Urine RBC 15-25 H (0-2) /hpf Urine WBC 0-4 H (0-5) /hpf Ur Squamous Epith Cells 0-4 H (0-5) /hpf Amorphous Sediment Not Reportable Urine Bacteria Trace (NONE) /hpf Salicylates < 0.3 L (3-10) mg/dL Urine Opiates Scre en (Negative) ng/mL Acetaminophen < 5.0 L (10-30) ug/mL Ur Barbiturates Sc reen (Negative) ng/mL Ur Phencyclidine S crn (Negative) ng/mL Ur Amphetamines Sc reen (Negative) ng/mL U Benzodiazepines Scrn (Negative) ng/mL Urine Cocaine Scre en (Negative) ng/mL U Marijuana (THC) Screen (Negative) ng/mL Ethyl Alcohol < 10 (0-10) mg/dL 06/29/21 Range/Units 19:21 WBC (4.0-10.0) 10^3/ uL RBC (4.1-5.3) 10^6/u L Hgb (11.7-16.6) g/dL Hct (42.0-52.0) % MCV (80-94) fl MCH (28.0-34.0) pg MCHC (30.0-36.0) g/dL RDW (12.1-15.1) % Plt Count (130-400) 10^3/c mm MPV (7.4-10.4) fL Neut % (Auto) % Lymph % (Auto) % Payne % (Auto) % Eos % (Auto) % Baso % (Auto) % Neut # (Auto) (1.8-7.7) 10^3/u L Lymph # (Auto) (0.8-4.8) 10^3/u L Payne # (Auto) (0.2-0.9) 10^3/u L Eos # (Auto) (0.0-0.8) 10^3/u L Baso # (Auto) (0.0-0.1) 10^3/u L Nucleated RBC % (a uto) % Nucleated RBCs # /100WBC Sodium (136-145) mmol/L Potassium (3.5-5.1) mmol/L Chloride (98-107) mmol/L Carbon Dioxide (22-29) mmol/L Anion Gap (5-19) BUN (8-23) mg/dL Creatinine (0.7-1.2) mg/dL GFR Calculation (90-130) mL/min Glucose (65-115) mg/dL Calculated Osmolal ity (285-295) mOsm/k g Calcium (8.5-10.5) mg/dL Total Bilirubin (0.15-1.2) mg/dL AST (0-40) U/L ALT (0-41) U/L Alkaline Phosphata se (40-130) IU/L Total Protein (6.6-8.7) g/dL Albumin (3.5-5.2) g/dL Globulin (1.3-4.6) g/dL Urine Color (Yellow) Urine Appearance (CLEAR) Urine pH (5-7) Ur Specific Gravit y (1.005-1.030) Urine Protein (Negative) Urine Glucose (UA) (Normal) Urine Ketones (Negative) Urine Blood (Negative) Urine Nitrate (Negative) Urine Bilirubin (Negative) Urine Urobilinogen (Negative) mg/dL Ur Leukocyte Hannah ase (Negative) Urine RBC (0-2) /hpf Urine WBC (0-5) /hpf Ur Squamous Epith Cells (0-5) /hpf Amorphous Sediment Urine Bacteria (NONE) /hpf Salicylates (3-10) mg/dL Urine Opiates Scre en Negative (Negative) ng/mL Acetaminophen (10-30) ug/mL Ur Barbiturates Sc reen Negative (Negative) ng/mL Ur Phencyclidine S crn Negative (Negative) ng/mL Ur Amphetamines Sc reen Negative (Negative) ng/mL U Benzodiazepines Scrn Negative (Negative) ng/mL Urine Cocaine Scre en Negative (Negative) ng/mL U Marijuana (THC) Screen Negative (Negative) ng/mL Ethyl Alcohol (0-10) mg/dL Discharge Plan Discharge Patient Disposition: Admitted As Inpatient Admit Provider: Kiel Rascon Clinical Impression: Schizoaffective disorder, Intellectual disability Condition: Stable Coding Level of Care Code ED Industrial Maintenance Manager for Brenda Richey
[2021-06-29] MEDS: trazodone 50 mg Tablet PO (22:26)
[2021-06-29] MEDS: OLANZapine 5 mg ODT PO (22:26)
--- NOTE | 2021-06-29 22:33 | PC.NURSE ---
Addendum entered by Josette Ross RN 06/29/21 22:36: Patient is also kicking craft. Original Note: Patient up at nurses station yelling you black son of a bitch . Redirection and reorientation attempted without success.Patient is otherwise not answering question and has an angry affect. PRN Zyprexa 5 mg po and Trazadone 50 mg po given.
[2021-06-29] MEDS: diphenhydrAMINE 50 mg/mL SDV 1mL IM (23:23)
[2021-06-29] MEDS: LORazepam 2 mg/mL INJ 1 mL IM (23:23)
--- NOTE | 2021-06-29 23:28 | PC.NURSE ---
Pt arrived to our unit via gurney from ER. Pt noted to be resting with both eyes closed. Pt had been given medications in the ER for behavioral actions. Pt was noted kicking doors and wandering in the hallway shortly after arrival, 1:1 order obtained by RN. At 2225, pt noted with increased anxiety and continued wandering into other pts rooms, RN gave zyprexa 5mg po and trazodone 50mg po. At 2309, pt was noted with continued agitation, Ativan 2mg IM, Haldol 5mg IM and Benadryl 50mg IM was given with security standing by. 1:1 sitter continues by his side.
--- NOTE | 2021-06-30 00:08 | PC.NURSE ---
Pt resting quietly with both eyes closed at this time.
[2021-06-30 06:00] VITALS: RESP 17
--- NOTE | 2021-06-30 13:58 | PM.NHP ---
Providers/Chief Complaint Admitting Physician: Neal Angela MD Primary Care Provider: ZEYNEP Gamino Chief Complaint: ams HPI NPU History of Present Illness López Eckert is a 61 year old male with a history of schizophrenia who was brought to the ED by his sister because of his disorganized, impulsive, and increasingly aggressive behavior. The ED note says: 61-year-old male who was brought into the emergency department by his sister with worsening behavioral issues. He has a history of schizophrenia and is on several antipsychotics. According to sister he was treated for COVID-19 about 3 weeks ago and ever since then he has not gotten back to his baseline. For the last few weeks he has not been sleeping well at night and yesterday he did not sleep a total at night, was up throughout the night thrush in the house turning on the stove risking fire, and being a little aggressive. Because of these the sister brought him into the emergency department for evaluation. The patient is a poor historian, likely due to his reported intellectual disability. He does report feeling worried and hearing voices that tell him to kill Indians. He says he is planning to act on these commands. He says he is sleeping and eating well, even though his sister reported that he isn't . He does agree that he had Covid in the past few weeks. He denies having breathing trouble but still has a cough. He denies drinking alcohol or using drugs, but he smokes 1 pack of cigarettes per day. He denies medication side effects. He sees Eva Wills APRN in the [facility] for outpatient psychiatric medication management. Her last note from 04/03/21 says: Talked with patient and his sister/guardian, Jeanine, who provides collateral information. Jeanine says López has been in a happy mood, he has been dancing around here. No reports of manic/hypomanic symptoms or acute mood dysphoria. No reported behavioral problems at home or in social situations. Jeanine says they do not go a lot of places. Patient receives his Risperdal injection every 2 weeks; most recent injection was on 04/02/21. López says he is doing okay and says he is sleeping and eating okay. His energy level is adequate. 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 He denies abnormal movements of his mouth/tongue; head/neck; extremities; and torso. Jeanine corroborates that he exhibits no side effects with his current psychotropics. Psychiatric history: As above. Substance use history: As above. Family history: Patient denies mental health or addiction issues on either side of the family. Psychosocial history: He says he graduated from high school but never worked due to disability. Legal history: No legal difficulties. Medical history: Denies any significant medical history, apart from the recent Covid infection. Meds NPU Home Medications Medication Instructions Recorded Confirmed Last Taken Type cholecalciferol (vitamin D3) 125 5,000 unit PO DAILY 11/07/19 06/29/21 06/29/21 History mcg (5,000 unit) capsule cetirizine 10 mg tablet 10 mg PO DAILY #30 tab 05/19/21 06/29/21 06/29/21 Rx simvastatin 20 mg tablet 20 mg PO DAILY #90 tab 05/19/21 06/29/21 06/28/21 Rx sucralfate 100 mg/mL oral 10 ml PO TID PRN #560 ml 05/19/21 06/29/21 06/05/21 Rx suspension docusate calcium [Stool Softener 240 mg PO DAILY 06/05/21 06/29/21 06/29/21 History (docusate saroj)] escitalopram oxalate 10 mg tablet 10 mg PO DAILY #30 tab 06/26/21 06/29/21 06/29/21 Rx risperidone 2 mg tablet 4 mg PO BEDTIME #60 tab 06/26/21 06/29/21 06/28/21 Rx risperidone microspheres 37.5 mg/2 37.5 mg IM Q14D #2 vial 06/26/21 06/29/21 06/25/21 Rx mL intramuscular susp,ext releas Risperdal 1 mg PO DAILY 06/29/21 06/29/21 06/29/21 History omeprazole 40 mg PO BID 06/29/21 06/29/21 06/29/21 History Allergies Allergy/AdvReac Type Severity Reaction Status Date / Time No Known Allergies Allergy Verified 06/05/21 13:27 PFSH NPU PFSH: Medical History Allergic rhinitis, unspecified Dyslipidemia Gastritis, unspecified, with bleeding GERD without esophagitis History of DVT (deep vein thrombosis) History of seizures as a child Hypertension Intellectual disability Schizoaffective disorder Vitamin D insufficiency Surgical History No history of previous surgery Family History Father Cancer Colon Cancer Social History Smoking and tobacco status: never smoked Second hand smoke exposure: No Smoking risk assessment/counseling performed?: No Alcohol intake: never Desire information about alcohol rehabilitation?: No Counseling given: No Desire information about substance/drug rehabilitation?: No Counseling given: No Caregiver/support person: Yes (sister) Lives independently: No Household members: family Housing: House Marital status: Single Highest education level completed: High School Graduate service: No Current occupational status: disabled Pets and animals: Yes History of recent travel: No Current gender identity: Male Mental Status Exam MSE Comments: I met with the patient in his room, and he was dressed in hospital scrubs and slow to respond. He was calm, minimally cooperative, spoke in one or two word answers, and made poor eye contact. No psychomotor agitation or retardation. Speech is slow and sparse Alert, oriented to person, hospital, and June 2021, but not the name of the facility, town, day or date. Attention and concentration were fair. Some questions needed to be repeated for him. Memory is questionable. He does not produce much biographical material. He does not know the name of the president. Mood is worried. Affect is flat. Thought process is concrete. Thought content: He hears voices - command hallucinations telling him to kill Indians and says he will do it. Denies visual hallucinations. No delusions noted. No current suicidal ideation. Insight and judgment appear to be quite impaired. Vitals/I&O/Wt Last Vital Signs Temp 97.9 F 06/29/21 20:51 Pulse 76 06/29/21 20:51 Resp 17 06/30/21 06:00 BP 137/85 06/29/21 20:51 Pulse Ox 96 06/29/21 20:51 Weight last 48 hrs Weight 78.018 kg Weight 77.111 kg Data NPU : 06/29/21 19:21 06/29/21 19:21 A&P Assessment and plan (1) Schizoaffective disorder: Status: Chronic Qualifiers: Schizoaffective disorder type: unspecified Qualified Code(s): F25.9 - Schizoaffective disorder, unspecified (2) Intellectual disability: Status: Chronic Additional A&P Information López Eckert is a 61 year old male with a history of schizophrenia who was brought to the ED by his sister because of his disorganized, impulsive, and increasingly aggressive behavior. Insomnia and behavioral issues developed after he had Covid about 3 weeks ago. It is possible that his issues are the result of physical or psychological sequela of Covid infection. 1. Continue current medication. 2. Continue every 15 minute checks for safety. 3. Encourage individual, group and milieu therapies. 4. Encourage sober living treatment after discharge at the highest level of care to which he is willing to commit. Involuntary Hold Information 96 Hour Hold: 96 Hour Involuntary Admission: No Attestations NPU Medical Necessity Statement*: Psychiatric hospitalization is medically necessary to prevent access to lethal means, to reevaluate medication, and to coordinate a safe discharge. Patient will be in the hospital for over 2 midnights. Likely length of stay is 3 to 5 days. Coding Level of Care Code Acute Building And Grounds Supervisor for Brenda Richey Diagnoses Schizoaffective disorder F25.9 Schizoaffective disorder type: unspecified Intellectual disability F79
[2021-06-30 14:00] VITALS: BP 122/74; PULSE 71; RESP 16; TEMP 36.4; O2SAT 95
[2021-06-30] MEDS: acetaminophen 325 mg Tablet 650 MG PO (16:05)
[2021-06-30] MEDS: hyDROXYzine 25 mg Capsule 50 MG PO (16:05)
--- NOTE | 2021-06-30 16:05 | PC.NURSE ---
PRN VISTARIL 50 MG GIVEN PO PER PT C/O ANXIETY, PT UP PACING UNIT, MUMBLING AND CURSING TO HIMSELF SAYING THAT MOTHER TK ROBERTS KICKING DOORS UP BY THE NURSES STATION, REDIRECTED BY STAFF SEVERAL TIMES. WILL CONT TO MONITOR
[2021-06-30] MEDS: sucralfate 1 gm/10 mL Oral Liq UDC PO ×2 (17:11→20:34)
[2021-06-30] MEDS: OLANZapine 5 mg ODT PO (17:11)
--- NOTE | 2021-06-30 17:11 | PC.NURSE ---
PRN ZYPREXA ZYDIS 5 MG GIVEN PO PER PT C/O AGITATION. PT UP ON UNIT, PACING, KICKING AT DOORS AND CURSING RANDOMLY. STAFF HAS TO REDIRECT OFTEN
--- NOTE | 2021-06-30 18:17 | XRR_ITS ---
PROCEDURE INFORMATION: Exam: XR Complete Acute Abdomen Series Including Chest Exam date and time: 06/30/2021 6:17 PM Age: 61 years old Clinical indication: Nausea and other: Loss of appetite; Prior surgery; Patient HX: Best images due to mental capacity; Additional info: Nausea, regurgitation, poor po intake, assess for any, obstruction, free air, etc TECHNIQUE: Imaging protocol: XR complete acute abdomen series, including 2 or more views of the abdomen and a single view chest. COMPARISON: CR XR chest 1V portable [id number] 01/15/2021 9:55 PM FINDINGS: Lungs: Normal. No consolidation. Pleural spaces: Normal. No pleural effusions. No pneumothorax. Heart/Mediastinum: Normal. No cardiomegaly. Gastrointestinal tract: Normal. No bowel dilation. Intraperitoneal space: Possible trace free air under the right hemidiaphragm. Bones/joints: Normal. No acute fracture. Soft tissues: Normal. XR/XR acute abdomen series [id number] IMPRESSION: Possible trace free air under the right hemidiaphragm. Recommend CT.
--- NOTE | 2021-06-30 18:35 | PM.HP ---
Providers/Chief Complaint Admitting Physician: Kiel Rascon MD Primary Care Provider: Meron Robles, CLAIM REPRESENTATIVE-C Chief Complaint: ams History of Present Illness 61-year-old gentleman with intellectual disability, history of GERD, with gastric ulcers, HTN, HLD, schizoaffective disorder diagnosed with COVID-19 on 06/19, treated with course of monoclonal antibodies, never required oxygen support, appears his also was treated with a course of dexamethasone with a 10-day course prescribed on 06/19. Was brought in for evaluation by his family due to excessive wakefulness, disorganized, impulsive behavior. During my visit he currently is oriented to being in the hospital, knows that his 2020, is not sure why he ended up in the hospital. He intermittently exclaims nonsensical phrases, including the wagons are noted . Earlier reported hearing voices. Intermittently exclaims are there any niggers around here . He has been reporting nausea, with some spitting up, regurgitation. Poor oral intake. Abdominal discomfort. He reports having some headache. He is coughing little bit. Denies chest pain. Denies diarrhea. Urinalysis was obtained in ER, with 15-25 RBC, 0-4 WBC, 0-4 squamous patella cells. Urine cultures pending. CBC, CMP unremarkable. Urine drug screen obtained in ER unremarkable. Hospital service was consulted for assessment regarding his abdominal discomfort and confusion with recent Covid infection. Review of Systems Const: Denies: fever(s), chills, body aches or malaise Eyes: Denies: change in vision or eye redness ENMT: Denies: throat pain, oral sores or ear or mastoid pain Card: Denies: chest pain, edema, pre-syncope or dyspnea on exertion Resp: Reports: non-productive cough; Denies: dyspnea, change in phlegm color or hemoptysis GI: Reports: nausea, vomiting and other (Poor PO intake); Denies: diarrhea, constipation, hematochezia or melena : Denies: flank pain, difficulty urinating, urinary frequency or hematuria Musc: Denies: back pain, joint swelling or joint redness Skin/Breast: Denies: rash, sores or new lesions Neuro: Reports: headache(s); Denies: numbness in extremities, weakness in extremities, dizziness, confusion or seizure-like activity Endo: Denies: polyuria or polydipsia Bennett/Lymph: Denies: easy bleeding or purpura All/Imm: Denies: urticaria, throat swelling or tongue swelling Medications/Allergies Home Medications Medication Instructions Recorded Confirmed Last Taken Type cholecalciferol (vitamin D3) 125 5,000 unit PO DAILY 11/07/19 06/29/21 06/29/21 History mcg (5,000 unit) capsule cetirizine 10 mg tablet 10 mg PO DAILY #30 tab 05/19/21 06/29/21 06/29/21 Rx simvastatin 20 mg tablet 20 mg PO DAILY #90 tab 05/19/21 06/29/21 06/28/21 Rx sucralfate 100 mg/mL oral 10 ml PO TID PRN #560 ml 05/19/21 06/29/21 06/05/21 Rx suspension docusate calcium [Stool Softener 240 mg PO DAILY 06/05/21 06/29/21 06/29/21 History (docusate saroj)] escitalopram oxalate 10 mg tablet 10 mg PO DAILY #30 tab 06/26/21 06/29/21 06/29/21 Rx risperidone 2 mg tablet 4 mg PO BEDTIME #60 tab 06/26/21 06/29/21 06/28/21 Rx risperidone microspheres 37.5 mg/2 37.5 mg IM Q14D #2 vial 06/26/21 06/29/21 06/25/21 Rx mL intramuscular susp,ext releas Risperdal 1 mg PO DAILY 06/29/21 06/29/21 06/29/21 History omeprazole 40 mg PO BID 06/29/21 06/29/21 06/29/21 History Allergies Allergy/AdvReac Type Severity Reaction Status Date / Time No Known Allergies Allergy Verified 06/05/21 13:27 PFSH Acute PFSH: Medical History Allergic rhinitis, unspecified Dyslipidemia Gastritis, unspecified, with bleeding GERD without esophagitis History of DVT (deep vein thrombosis) History of seizures as a child Hypertension Intellectual disability Schizoaffective disorder Vitamin D insufficiency Surgical History No history of previous surgery Family History Father Cancer Colon Cancer Social History Smoking and tobacco status: never smoked Second hand smoke exposure: No Smoking risk assessment/counseling performed?: No Alcohol intake: never Desire information about alcohol rehabilitation?: No Counseling given: No Desire information about substance/drug rehabilitation?: No Counseling given: No Caregiver/support person: Yes (sister) Lives independently: No Household members: family Housing: House Marital status: Single Highest education level completed: High School Graduate service: No Current occupational status: disabled Pets and animals: Yes History of recent travel: No Current gender identity: Male Vitals/I&O/Wt Last Vital Signs Temp 97.5 F L 06/30/21 14:00 Pulse 71 06/30/21 14:00 Resp 16 06/30/21 14:00 BP 122/74 06/30/21 14:00 Pulse Ox 95 06/30/21 14:00 Weight last 48 hrs Weight 78.018 kg Weight 77.111 kg Physical Exam Const: COMMON NORMALS: no acute distress GENERAL APPEARANCE: cooperative ORIENTATION/CONSCIOUSNESS: Yes confused HENMT: COMMON NORMALS: oropharynx normal Neck/C-Spine: COMMON NORMALS: no JVD Resp: COMMON NORMALS: normal respiratory effort and clear to auscultation bilaterally AUSCULTATION: clear to auscultation bilaterally Cardio: COMMON NORMALS: no JVD, regular rhythm, S1 normal heart sound present, S2 normal heart sound present and No murmurs present (Cardio) RHYTHM: regular rhythm HEART SOUNDS: S1 normal heart sound present and S2 normal heart sound present GI: COMMON NORMALS: Normal to inspection, nondistended, normoactive bowel sounds present and Soft to palpation PALPATION: Yes Soft to palpation and Yes Tenderness to palpation present (GI) (Gen discomfort on palpation, but no grimace, soft) Extremity: COMMON NORMALS: no joint enlargement and no pedal edema Neuro: COMMON NORMALS: moves all extremities MENINGEAL SIGNS: Yes no meningeal signs MOTOR EXAM: Motor abnormalities not present Skin: COMMON NORMALS: no rashes or lesions noted GENERAL SKIN EXAM: no rashes or lesions noted Data : 06/29/21 19:21 06/29/21 19:21 A&P Assessment and plan (1) Acute psychosis: With history of schizoaffective disorder. Appears to be having acute psychotic episode either secondary to his primary illness or could have been triggered by acute illness, COVID-19, possibly steroid related psychosis. Hold steroids. Continue home medications. Continue management as per psychiatry team. Status: Acute (2) Gastritis: Acute exacerbation of gastritis with history of PUD. This appears to be steroid related with recent course of dexamethasone prescribed in the course of COVID-19 moderate illness. Hold steroids. Continue PPI. Change sucralfate to scheduled. Change diet to clear liquid for now. Zofran, Reglan as needed for nausea. Check ECG. Reported current smoker, but has reportedly had EGD. H. pylori negative. After discharge follow up w PCP. Status: Chronic (3) Nausea with vomiting, unspecified: As above. Check CK. Status: Acute Qualifiers: Vomiting type: hematemesis Qualified Code(s): K92.0 - Hematemesis (4) Intellectual disability: Status: Chronic (5) Abnormal urinalysis: Microscopic hematuria noted with 15-25 RBC. Only 0-4 WBC. 0-4 squamous epithelial cells. Urine culture is pending. For now hold off antibiotics. Follow-up culture results. Status: Acute Attestations Medical Necessity Statement*: Continue admission for assessment management of acute psychosis, gastritis. Coding Level of Care Code Acute Compliance Reviewer for Brenda Richey Diagnoses Acute psychosis F23 Gastritis K29.70 Nausea with vomiting, unspecified K92.0 Vomiting type: hematemesis Intellectual disability F79 Abnormal urinalysis R82.90
[2021-06-30 19:26] LABS: Creatine Phosphokinase 513 U/L (39-308)
--- NOTE | 2021-06-30 20:30 | PC.NURSE ---
Behavior/Injections/Fire Alarm. @2029 Pt combative, confused, wandering the halls with 1:1 sitter. Pt was assisted to his room and received IM medications and evening dose of PO medications. Pt urinated on his self, removed his pants, filling from disposable undergarment fell out onto the floor. Pt began to kick the door, slam pt phone, make racist comments, and became increasingly agitated. Staff attempted to de-escalate verbally. This pt is confused, alert to name only at this time. @2036 Pt hit the fire alarm, and hit it a second time, exit doors came open. Charge nurse accounted for all pt's, staff manned the doors, security/warehouse lead both notified @2037 , The warehouse lead Came to the floor. chief nursing officer reset door locks and shut off sirens. Fire Dept did not show up to the unit as They were called off, Per senior information security consultant Griffin. No elopement at this time.However, this patient does check doors, hit glass, and will attempt to kick open door to get out of the unit, he still requires a 1;1. Pt is in the dayroom with other patients with 1:1.
[2021-06-30] MEDS: risperiDONE 2 mg Tablet 4 MG PO (20:34)
[2021-06-30] MEDS: trazodone 50 mg Tablet PO (20:34)
[2021-06-30] MEDS: LORazepam 2 mg/mL INJ 1 mL IM (20:37)
--- NOTE | 2021-06-30 20:40 | PC.NURSE ---
pt noted with increased anxiety and agitation. pt kicking doors, slamming the phone, yelling belligerents at staff, get outta here you nigga . attempts to redirect not successful. Medications as follows given. Ativan 2mg IM and Haldol 5mg IM given in right deltoid, and Benadryl 50mg IM given in the left deltoid. 1:1 sitter remains at side.
[2021-06-30] MEDS: diphenhydrAMINE 50 mg/mL SDV 1mL IM (21:03)
[2021-06-30 21:32] VITALS: BP 118/78; PULSE 88; RESP 19; TEMP 36.8; O2SAT 94
[2021-06-30] MEDS: pantoprazole DR 40 mg Tablet PO (22:43)
--- NOTE | 2021-06-30 23:00 | PC.NURSE ---
pt continues to wander. dillonter was able to get pt to sit and color for a spell. but then pt began to kick at the door again.
--- NOTE | 2021-06-30 23:43 | CTR_ITS ---
PROCEDURE INFORMATION: Exam: CT Abdomen And Pelvis With Contrast Exam date and time: 06/30/2021 11:43 PM Age: 61 years old Clinical indication: Abnormal findings; Abnormal radiologic finding of the abdomen; Radiologic exam and body structure: Abdomen and pelvis; Additional info: Kub with possible free air under diaphragm TECHNIQUE: Imaging protocol: Computed tomography of the abdomen and pelvis with contrast. Radiation optimization: All CT scans at this facility use at least one of these dose optimization techniques: automated exposure control; mA and/or kV adjustment per patient size (includes targeted exams where dose is matched to clinical indication); or iterative reconstruction. Contrast material: OMNI 300; Contrast volume: 95 ml; Contrast route: INTRAVENOUS (IV); COMPARISON: CT abdomen pelvis w con* [id number] 03/05/2020 8:06 AM RADIATION DOSE METRICS: Total DLP (mGy-cm): 1441.98 FINDINGS: Liver: Normal. No mass. Gallbladder and bile ducts: Cholecystectomy. Pancreas: Normal. No ductal dilation. Spleen: No splenomegaly. Adrenal glands: Normal. No mass. Kidneys and ureters: Right renal atrophy. Minimal left renal scarring. 14 mm simple left renal cyst. Stomach and bowel: No obstruction. No wall thickening. Appendix: Normal appendix. Intraperitoneal space: No free air. Vasculature: Acute nonocclusive thrombus in the IVC, extending from the bifurcation to the level of the renal veins. It may extend superior to this region or the faint intraluminal hypodensity may be due to mixing artifact. Lymph nodes: No enlarged lymph nodes. Urinary bladder: Unremarkable as visualized. Reproductive: Unremarkable as visualized. Bones/joints: Unremarkable. No acute fracture. Soft tissues: Unremarkable. CT/CT abdomen pelvis w con* [id number] IMPRESSION: 1. Acute nonocclusive thrombus in the IVC, extending from the bifurcation to the level of the renal veins. It may extend superior to this region or the faint intraluminal hypodensity may be due to mixing artifact. 2. No free air. COMMENTS: Consistent with the [employer]'s Incidental Findings Committee white paper (J Am Taya Radiol 2018): Any incidental renal lesion less than 1 cm or classified as too small to characterize, or any incidental cystic renal lesion characterized as simple-appearing, is likely benign. No follow-up imaging is recommended for these lesions per consensus recommendations based on imaging criteria. Radiation Dose CTDIVOL = (mGy): DLP = 1441.98 (mGy-cm)
[2021-07-01] MEDS: iohexol 300 mg/mL 100 mL Btl IV (00:18)
--- NOTE | 2021-07-01 00:47 | P.EN_ITS ---
Event Note Event Note: Called earlier by radiology regarding possibility of free air under diaphragm on KUB. CT abd/pelvis ordered and while it did not show free air, it did show a nonocclusive thrombus in the IVC. Started lovenox and for now will keep patient in the NPU. He has been medicated for his psychosis this evening. Will change vitals to q 4 hrs. Discussed with nursing staff. He has a history of DVT noted in past medical hsitory. Recent COVID diagnosis also. Josette will see if she can reach family to notify them of finding. I suspect this is an incidental finding although potentially could be related to his complaints of abdominal pain. Stopped statin therapy due to elavated CK level of 513. Chest/Abdomen X-ray 06/30/21 18:17 IMPRESSION: Possible trace free air under the right hemidiaphragm. Recommend CT. ADDENDUM: 06/30/21 [id number] THIS REPORT CONTAINS FINDINGS THAT MAY BE CRITICAL TO PATIENT CARE. The findings were verbally communicated via telephone conference with Dr. Goldman at 11:41 PM CDT on 06/30/2021. The findings were acknowledged and understood. Abdomen/Pelvis CT 06/30/21 23:43 IMPRESSION: 1. Acute nonocclusive thrombus in the IVC, extending from the bifurcation to the level of the renal veins. It may extend superior to this region or the faint intraluminal hypodensity may be due to mixing artifact. 2. No free air. COMMENTS: Consistent with the [employer]'s Incidental Findings Committee white paper (J Am Taya Radiol 2018): Any incidental renal lesion less than 1 cm or classified as too small to characterize, or any incidental cystic renal lesion characterized as simple-appearing, is likely benign. No follow-up imaging is recommended for these lesions per consensus recommendations based on imaging criteria. Radiation Dose CTDIVOL = (mGy): DLP = 1441.98 (mGy-cm) Event Notes Attestations Time Spent in Patient Care: 16 - 35 minutes 28 minutes in care with discussion with radiology, orders, follow up of study and discussion with staff.
--- NOTE | 2021-07-01 00:51 | PC.NURSE ---
Attempted to notify sister Jeanine Brambila by phone regarding physician initiating Lovenox therapy for non occlusive thrombus in SVC. Message left on voicemail to return call.
[2021-07-01] MEDS: enoxaparin 80 mg/0.8 mL Syringe SUBCUT (01:16)
[2021-07-01 01:18] VITALS: BP 134/97; PULSE 101; RESP 21; TEMP 36.7; O2SAT 97
[2021-07-01 03:51] LABS: Basophils % 0.3 %; Eosinophils % 0.5 %; Hematocrit 41.7 % (42.0-52.0); Hemoglobin 14.4 g/dL (11.7-16.6); Lymphocytes # 0.7 10^3/uL (0.8-4.8); Lymphocytes % 11.5 %; Mean Corpuscular HGB Conc 34.5 g/dL (30.0-36.0); Mean Corpuscular Hemoglobin 31.3 pg (28.0-34.0); Mean Corpuscular Volume 90.7 fl (80-94); Mean Platelet Volume 9.3 fL (7.4-10.4); Monocytes # 0.3 10^3/uL (0.2-0.9); Monocytes % 4.4 %; Neutrophils # 5.13 10^3/uL (1.8-7.7); Nucleated Red Blood Cells % 0 %; Platelet Count 439 10^3/cmm (130-400); Red Cell Distribution Width 12.8 % (12.1-15.1); White Blood Count 6.2 10^3/uL (4.0-10.0)
[2021-07-01 04:15] LABS: Alanine Aminotransferase 12 U/L (0-41); Alkaline Phosphatase 79 IU/L (40-130); Aspartate Amino Transferase 26 U/L (0-40); Blood Urea Nitrogen 21 mg/dL (8-23); Carbon Dioxide 24 mmol/L (22-29); Chloride 99 mmol/L (98-107); Globulin 4.3 g/dL (1.3-4.6); Glucose 114 mg/dL (65-115); Osmolality Calculated 296 mOsm/kg (285-295); Sodium 141 mmol/L (136-145); Total Bilirubin 0.7 mg/dL (0.15-1.2); Total Protein 8.3 g/dL (6.6-8.7)
[2021-07-01 04:27] LABS: Creatine Phosphokinase 933 U/L (39-308)
[2021-07-01 05:20] VITALS: BP 120/88; PULSE 99; RESP 20; TEMP 36.6; O2SAT 97
[2021-07-01] MEDS: OLANZapine 5 mg ODT PO (05:31)
--- NOTE | 2021-07-01 05:35 | PC.NURSE ---
pt wandering and pacing in the hallway. several attempts made to redirect pt without positive outcomes.
[2021-07-01] MEDS: cholecalciferol (vitamin D3) 5,000 unit Tablet 5000 UNIT PO (08:58)
[2021-07-01] MEDS: pantoprazole DR 40 mg Tablet PO (08:58)
[2021-07-01] MEDS: sucralfate 1 gm/10 mL Oral Liq UDC PO (08:58)
[2021-07-01] MEDS: cetirizine 10 mg Tablet PO (08:58)
[2021-07-01] MEDS: risperiDONE 1 mg Tablet PO (08:58)
[2021-07-01] MEDS: escitalopram 10 mg Tablet PO (08:58)
--- NOTE | 2021-07-01 10:52 | PM.PN ---
Subjective Subjective: Interval history: He reports he is feeling better today. Says abdomen was bothering him earlier, but better currently. He perhaps could eat something today. Vitals/I&O/Wt Last Vital Signs Temp 97.8 F 07/01/21 05:20 Pulse 99 07/01/21 05:20 Resp 20 H 07/01/21 05:20 BP 120/88 07/01/21 05:20 Pulse Ox 97 07/01/21 05:20 Weight last 48 hrs Weight 78.018 kg Weight 77.111 kg Physical Exam Narrative: EXAM NARRATIVE: Sitting at the table in the dayroom, drawing with crayons. Const: COMMON NORMALS: no acute distress GENERAL APPEARANCE: cooperative ORIENTATION/CONSCIOUSNESS: Yes confused (Appears little bit more interactive, cooperative, not yelling out like yest) HENMT: COMMON NORMALS: oropharynx normal Neck/C-Spine: COMMON NORMALS: no meningeal signs and no JVD Resp: COMMON NORMALS: normal respiratory effort and clear to auscultation bilaterally AUSCULTATION: clear to auscultation bilaterally Cardio: COMMON NORMALS: no JVD, regular rhythm, S1 normal heart sound present, S2 normal heart sound present and No murmurs present (Cardio) RHYTHM: regular rhythm HEART SOUNDS: S1 normal heart sound present and S2 normal heart sound present GI: COMMON NORMALS: Normal to inspection, nondistended, normoactive bowel sounds present, Soft to palpation and non-tender PALPATION: Yes Soft to palpation Extremity: COMMON NORMALS: no joint enlargement and no pedal edema Neuro: COMMON NORMALS: moves all extremities MENINGEAL SIGNS: Yes no meningeal signs MOTOR EXAM: Motor abnormalities not present Skin: COMMON NORMALS: no rashes or lesions noted GENERAL SKIN EXAM: no rashes or lesions noted Data : 07/01/21 03:38 07/01/21 03:38 Micro: Microbiology 06/29/21 19:21 Urine Culture - Preliminary Urine,Clean Catch A&P Assessment and plan (1) Acute psychosis: He appears to be doing perhaps slightly better. He is not yelling out, exclaiming quite as yesterday. Currently sitting up in the room, drawing with crayons. Easier to interact with. With history of schizoaffective disorder. Appears to be having acute psychotic episode either secondary to his primary illness or could have been triggered by acute illness, COVID-19, possibly steroid related psychosis. Hold steroids. Continue home medications. Continue management as per psychiatry team. Status: Acute (2) Gastritis: Not quite as bothered by his belly today. Continue PPI. Steroids discontinued. Question of free air noted on abdominal series. Not seen on CT abdomen pelvis. 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 Acute exacerbation of gastritis with history of PUD. This appears to be steroid related with recent course of dexamethasone prescribed in the course of COVID-19 moderate illness. Hold steroids. Continue PPI. Change sucralfate to scheduled. Change diet to clear liquid for now. Zofran, Reglan as needed for nausea. Requested ECG. Reported current smoker, but has reportedly had EGD. H. pylori negative. After discharge follow up w PCP. Status: Chronic (3) Abnormal urinalysis: Microscopic hematuria noted with 15-25 RBC. Only 0-4 WBC. 0-4 squamous epithelial cells. Urine culture is pending. For now hold off antibiotics. Follow-up culture results. So far no growth after 1 day. He is reported to be current smoker, would need follow-up for resolution of hematuria with PCP. Otherwise if not resolving may need additional work-up to exclude urologic malignancy. Status: Acute (4) IVC thrombosis: Incidentally noted on CT abdomen pelvis after recent COVID-19 illness. Started on anticoagulation. Currently tolerating Lovenox. Follow-up hemoglobin tomorrow. Transition to oral anticoagulation prior to discharge. Discussed his condition, as well as the findings with his Sister Tanja Queen. Discussed continuation of anticoagulation, continuation of PPI, sucralfate, follow-up with PCP on all issues after discharge. She verbalized understanding. Status: Acute (5) Rhabdomyolysis: With poor oral intake, likely preadmission dehydration, also on statin. Statin held. He is feeling better, feels like he could have little bit more by mouth today. Continue as tolerating with clear liquid diet. Status: Acute (6) Nausea with vomiting, unspecified: As above. Status: Acute Qualifiers: Vomiting type: hematemesis Qualified Code(s): K92.0 - Hematemesis (7) Intellectual disability: Status: Chronic Attestations Medical Necessity Statement*: Continue admission for assessment management of acute psychosis, gastritis, initiation of anticoagulation secondary to incidentally noted IVC thrombus after recent COVID-19 illness. Coding Level of Care Code Acute Enterprise Software Developer for [facility] Diagnoses Acute psychosis F23 Gastritis K29.70 Abnormal urinalysis R82.90 IVC thrombosis I82.220 Rhabdomyolysis M62.82 Nausea with vomiting, unspecified K92.0 Vomiting type: hematemesis Intellectual disability F79
[2021-07-01] MEDS: haloperidol 5 mg Tablet PO (10:59)
--- NOTE | 2021-07-01 12:09 | NPU.GN ---
[facility] Topic: Thought processing General Mood of Group: Patient did not come to group today
--- NOTE | 2021-07-01 13:40 | PC.NURSE ---
After several attempts patient refused to take Lovenox injection. Injection wasted in Pyxis.
--- NOTE | 2021-07-01 16:12 | PM.NPN ---
Subjective NPU Subjective: Interval history: I met with the treatment team to review the patient's progress. When I went to see him, he was fairly sleepy and did not provide much response. He had no obvious complaints. I spoke with his one-to-one sitter who says that he colored for a period of 5 hours today. However when he was done, he was done and then moved on. He ran around the unit checking things out. Then he spent 2 hours sitting on the bench at the patient phone, with the phone held to his ear. He really has only been communicating when limits are set with him. The sitter says that he did respond well to the doctors who came to see him. Mental Status Exam MSE Comments: I met with the patient in his room, and he was dressed in hospital scrubs and slow to respond, if he did respond at all. He was calm, minimally cooperative, spoke in one or two word answers, and made poor eye contact. No psychomotor agitation or retardation. Speech is slow and sparse Alert, oriented to person, and situation. Memory is questionable. Mood is worried. Affect is flat. Thought process is concrete. Thought content: He hears voices. Denies visual hallucinations. No delusions noted. No current suicidal ideation. Insight and judgment appear to be quite impaired. He is quite impulsive. Vitals/I&O/Wt Last Vital Signs Temp 97.8 F 07/01/21 05:20 Pulse 99 07/01/21 05:20 Resp 20 H 07/01/21 05:20 BP 120/88 07/01/21 05:20 Pulse Ox 97 07/01/21 05:20 Weight last 48 hrs Weight 78.018 kg Weight 77.111 kg Data NPU : 07/01/21 03:38 07/01/21 03:38 Micro: Microbiology 06/29/21 19:21 Urine Culture - Preliminary Urine,Clean Catch Microbiology 06/29/21 19:21 Urine,Clean Catch Urine Culture - Preliminary A&P Assessment and plan (1) IVC thrombosis: Status: Acute (2) Rhabdomyolysis: Status: Acute (3) Abnormal urinalysis: Status: Acute (4) Acute psychosis: Status: Acute (5) Gastritis: Status: Chronic (6) Nausea with vomiting, unspecified: Status: Acute Qualifiers: Vomiting type: hematemesis Qualified Code(s): K92.0 - Hematemesis (7) Intellectual disability: Status: Chronic (8) Schizoaffective disorder: Status: Chronic Qualifiers: Schizoaffective disorder type: unspecified Qualified Code(s): F25.9 - Schizoaffective disorder, unspecified (9) Hypertension: Status: Chronic Qualifiers: Hypertension type: essential hypertension Qualified Code(s): I10 - Essential (primary) hypertension Additional A&P Information López Eckert is a 61 year old male with a history of schizophrenia who was brought to the ED by his sister because of his disorganized, impulsive, and increasingly aggressive behavior. Insomnia and behavioral issues developed after he had Covid about 3 weeks ago. It is likely that his psychosis was exacerbated by his steroid treatment, but it is possible that his issues are the result of physical or psychological sequela of Covid infection. 1. Appreciate the support and thorough examination and recommendations of the medical team. We will continue to follow the recommendations. 2. Continue current medication. Steroids have been held. 3. Continue every 15 minute checks for safety. 4. Encourage individual, group and milieu therapies. 5. Encourage sober living treatment after discharge at the highest level of care to which he is willing to commit. Involuntary Hold Information 96 Hour Hold: 96 Hour Involuntary Admission: No Attestations NPU Medical Necessity Statement*: Psychiatric hospitalization is medically necessary to prevent access to lethal means, to reevaluate medication, and to coordinate a safe discharge. Likely length of stay is 2 to 4 days. Coding Level of Care Code Acute Mental Health Counselor for [facility] Diagnoses IVC thrombosis I82.220 Rhabdomyolysis M62.82 Abnormal urinalysis R82.90 Acute psychosis F23 Gastritis K29.70 Nausea with vomiting, unspecified K92.0 Vomiting type: hematemesis Intellectual disability F79 Schizoaffective disorder F25.9 Schizoaffective disorder type: unspecified Hypertension I10 Hypertension type: essential hypertension
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
[2021-07-01 20:04] VITALS: RESP 18; TEMP 36.8
[2021-07-02 06:24] VITALS: RESP 20; TEMP 36.9
[2021-07-02 08:09] LABS: Basophils % 0.4 %; Eosinophils # 0.1 10^3/uL (0.0-0.8); Eosinophils % 1.3 %; Hematocrit 40.4 % (42.0-52.0); Hemoglobin 13.7 g/dL (11.7-16.6); Lymphocytes # 0.7 10^3/uL (0.8-4.8); Lymphocytes % 9.6 %; Mean Corpuscular HGB Conc 33.9 g/dL (30.0-36.0); Mean Corpuscular Hemoglobin 30.9 pg (28.0-34.0); Mean Corpuscular Volume 91.2 fl (80-94); Mean Platelet Volume 9.2 fL (7.4-10.4); Monocytes # 0.5 10^3/uL (0.2-0.9); Monocytes % 6.9 %; Neutrophils # 5.58 10^3/uL (1.8-7.7); Neutrophils % 81.5 %; Nucleated Red Blood Cells % 0 %; Platelet Count 408 10^3/cmm (130-400); Red Blood Count 4.43 10^6/uL (4.1-5.3); Red Cell Distribution Width 12.8 % (12.1-15.1); White Blood Count 6.9 10^3/uL (4.0-10.0)
[2021-07-02 09:07] LABS: Alanine Aminotransferase 11 U/L (0-41); Albumin Level 3.5 g/dL (3.5-5.2); Alkaline Phosphatase 66 IU/L (40-130); Anion Gap 22.2 (5-19); Aspartate Amino Transferase 29 U/L (0-40); Blood Urea Nitrogen 24 mg/dL (8-23); Calcium 9.2 mg/dL (8.5-10.5); Carbon Dioxide 20 mmol/L (22-29); Chloride 103 mmol/L (98-107); Creatinine Clr Calc Pharmacy 80.3238; Globulin 3.1 g/dL (1.3-4.6); Glomerular Filtration Rate 68.1 mL/min (90-130); Glucose 77 mg/dL (65-115); Osmolality Calculated 295 mOsm/kg (285-295); Potassium 4.2 mmol/L (3.5-5.1); Sodium 141 mmol/L (136-145); Total Bilirubin 0.9 mg/dL (0.15-1.2); Total Protein 6.6 g/dL (6.6-8.7)
[2021-07-02] MEDS: cholecalciferol (vitamin D3) 5,000 unit Tablet 5000 UNIT PO (10:51)
[2021-07-02] MEDS: risperiDONE 1 mg Tablet PO (10:52)
[2021-07-02] MEDS: pantoprazole DR 40 mg Tablet PO (10:52)
[2021-07-02] MEDS: sucralfate 1 gm/10 mL Oral Liq UDC PO ×3 (10:52→19:56)
[2021-07-02] MEDS: escitalopram 10 mg Tablet PO (10:52)
[2021-07-02] MEDS: cetirizine 10 mg Tablet PO (10:53)
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
[2021-07-02] MEDS: risperiDONE 2 mg Tablet 4 MG PO (19:55)
[2021-07-02] MEDS: OLANZapine 5 mg ODT PO (19:56)
--- NOTE | 2021-07-02 20:54 | P.PN_ITS ---
Subjective Subjective: Interval history: Ambulating around the unit, does not want to stop to talk or be examined. Asking can I get in the truck? . Vitals/I&O/Wt Last Vital Signs Temp 98.4 F 07/02/21 06:24 Pulse 99 07/01/21 05:20 Resp 20 H 07/02/21 06:24 BP 120/88 07/01/21 05:20 Pulse Ox 97 07/01/21 05:20 Physical Exam Const: COMMON NORMALS: no acute distress GENERAL APPEARANCE: not cooperative ORIENTATION/CONSCIOUSNESS: Yes confused Neuro: COMMON NORMALS: moves all extremities MOTOR EXAM: Motor abnormalitie s not present OTHER: Ambulating around the unit. Data : 07/02/21 07:45 07/02/21 07:45 Micro: Microbiology 06/29/21 19:21 Urine Culture - Final Urine,Clean Catch A&P Assessment and plan (1) Acute psychosis: Confused. With history of schizoaffective disorder. Appears to be having acute psychotic episode either secondary to his primary illness or could have been triggered by acute illness, COVID-19, possibly steroid related psychosis. Hold steroids. Continue home medications. Continue management as per psychiatry team. Status: Acute (2) Gastritis: Continue PPI. Sucralfate. Do not restart steroids at discharge. Trial of diet. Question of free air noted on abdominal series. Not seen on CT abdomen pelvis. 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 Acute exacerbation of gastritis with history of PUD. This appears to be steroid related with recent course of dexamethasone prescribed in the course of COVID-19 moderate illness. Zofran, Reglan as needed for nausea. Requested ECG. Reported current smoker, but has reportedly had EGD. H. pylori negative. After discharge follow up w PCP. Status: Chronic (3) Abnormal urinalysis: No growth on urine culture. Microscopic hematuria noted with 15-25 RBC. Only 0-4 WBC. 0-4 squamous epithelial cells. Urine culture is pending. Hold off antibiotics. So far no growth after 1 day. He is reported to be current smoker, would need follow-up for resolution of hematuria with PCP. Otherwise if not resolving may need additional work-up to exclude urologic malignancy. Status: Acute (4) IVC thrombosis: Transition to p.o. anticoagulation. Incidentally noted on CT abdomen pelvis after recent COVID-19 illness. Status: Acute (5) Rhabdomyolysis: Follow up CK. With poor oral intake, likely preadmission dehydration, also on statin. Statin held. He is feeling better, feels like he could have little bit more by mouth today. Continue as tolerating with clear liquid diet. Status: Acute (6) Nausea with vomiting, unspecified: So far appears resolved. As above. Status: Acute Qualifiers: Vomiting type: hematemesis Qualified Code(s): K92.0 - Hematemesis (7) Intellectual disability: Status: Chronic Attestations Medical Necessity Statement*: Continue admission for assessment management of acute psychosis, transition to oral anticoagulation. Coding Level of Care Code Acute Used Car Renovator for [facility] Fwd Diagnoses Acute psychosis F23 Gastritis K29.70 Abnormal urinalysis R82.90 IVC thrombosis I82.220 Rhabdomyolysis M62.82 Nausea with vomiting, unspecified K92.0 Vomiting type: hematemesis Intellectual disability F79
[2021-07-02] MEDS: diphenhydrAMINE 50 mg/mL SDV 1mL IM (20:59)
[2021-07-02] MEDS: LORazepam 2 mg/mL INJ 1 mL IM (21:00)
[2021-07-02] MEDS: haloperidol inj 5 mg/mL INJ 1 mL IM (21:00)
--- NOTE | 2021-07-02 21:15 | PC.NURSE ---
Attempt made by CATCHER FILTER TIP to give pt his HS meds without success. Pt noted with great agitation, pt medicated Ativan 2mg IM, Haldol 5mg IM and Benadryl 50mg IM at this time.
--- NOTE | 2021-07-02 22:30 | PC.NURSE ---
pt resting quietly in room with both eyes closed. 1:1 sitter at side.
[2021-07-03 06:00] VITALS: BP 120/88; PULSE 99; RESP 20; TEMP 36.9; O2SAT 97
[2021-07-03] MEDS: escitalopram 10 mg Tablet PO (08:34)
[2021-07-03] MEDS: cetirizine 10 mg Tablet PO (08:34)
[2021-07-03] MEDS: risperiDONE 1 mg Tablet PO (08:34)
[2021-07-03] MEDS: cholecalciferol (vitamin D3) 5,000 unit Tablet 5000 UNIT PO (08:35)
[2021-07-03] MEDS: sucralfate 1 gm/10 mL Oral Liq UDC PO ×2 (08:35→21:32)
[2021-07-03 09:17] LABS: Basophils % 0.4 %; Eosinophils # 0.1 10^3/uL (0.0-0.8); Eosinophils % 1.7 %; Hematocrit 40.7 % (42.0-52.0); Hemoglobin 13.6 g/dL (11.7-16.6); Lymphocytes % 21.3 %; Mean Corpuscular HGB Conc 33.4 g/dL (30.0-36.0); Mean Corpuscular Hemoglobin 30.7 pg (28.0-34.0); Mean Corpuscular Volume 91.9 fl (80-94); Mean Platelet Volume 9.4 fL (7.4-10.4); Monocytes # 0.5 10^3/uL (0.2-0.9); Monocytes % 11.4 %; Neutrophils # 3.08 10^3/uL (1.8-7.7); Neutrophils % 64.8 %; Nucleated Red Blood Cells % 0 %; Platelet Count 384 10^3/cmm (130-400); Red Blood Count 4.43 10^6/uL (4.1-5.3); White Blood Count 4.8 10^3/uL (4.0-10.0)
[2021-07-03 09:38] LABS: Alanine Aminotransferase 14 U/L (0-41); Albumin Level 3.5 g/dL (3.5-5.2); Alkaline Phosphatase 61 IU/L (40-130); Aspartate Amino Transferase 33 U/L (0-40); Blood Urea Nitrogen 42 mg/dL (8-23); Calcium 9.1 mg/dL (8.5-10.5); Carbon Dioxide 23 mmol/L (22-29); Chloride 105 mmol/L (98-107); Globulin 3.5 g/dL (1.3-4.6); Glomerular Filtration Rate 38.6 mL/min (90-130); Glucose 91 mg/dL (65-115); Osmolality Calculated 302 mOsm/kg (285-295); Sodium 141 mmol/L (136-145); Total Bilirubin 0.6 mg/dL (0.15-1.2)
[2021-07-03 09:40] LABS: Anion Gap 17.5 (5-19); Potassium 4.5 mmol/L (3.5-5.1)
[2021-07-03] MEDS: apixaban 5 mg Tablet 10 MG PO ×3 (09:43→21:31)
[2021-07-03] MEDS: pantoprazole DR 40 mg Tablet PO ×2 (09:44→21:31)
[2021-07-03 09:45] LABS: Creatine Phosphokinase 1065 U/L (39-308)
[2021-07-03] MEDS: diphenhydrAMINE 50 mg/mL SDV 1mL IM ×2 (11:58→12:05)
--- NOTE | 2021-07-03 11:58 | PC.NURSE ---
PATIENT AGITATED, PACING UP AND DOWN THE HALLS, HOLLERING, TAPPING ON THE WINDOWS. EASILY REDIRECTED. BENADRYL 50MG IM ADMINISTERED. WILL MONITOR FOR DRUG EFFECTIVENESS.
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
--- NOTE | 2021-07-03 12:48 | PC.NURSE ---
PATIENT LYING IN BED, TALKING TO HIMSELF. 1:1 SITTER PRESENT. WILL CONT TO MONITOR
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
[2021-07-03] MEDS: risperiDONE 2 mg Tablet 4 MG PO (21:31)
[2021-07-03] MEDS: OLANZapine 5 mg ODT PO (21:31)
[2021-07-03] MEDS: hyDROXYzine 25 mg Capsule 50 MG PO (21:31)
--- NOTE | 2021-07-03 22:14 | PM.PN ---
Subjective Subjective: Interval history: Confused today. Not quite as belligerent, but worse than he was day before yesterday. Received several doses of Benadryl. Ate some applesauce, but overall has not been eating well. Yesterday was urinating. Staff will assess bladder scan today. Vitals/I&O/Wt Last Vital Signs Temp 98.4 F 07/03/21 06:00 Pulse 99 07/03/21 06:00 Resp 20 H 07/03/21 06:00 BP 120/88 07/03/21 06:00 Pulse Ox 97 07/03/21 06:00 Physical Exam Narrative: EXAM NARRATIVE: Laying in bed, exclaiming when talked to exclaiming random statements. Const: COMMON NORMALS: no acute distress GENERAL APPEARANCE: cooperative ORIENTATION/CONSCIOUSNESS: Yes confused HENMT: COMMON NORMALS: oropharynx normal Neck/C-Spine: COMMON NORMALS: no meningeal signs and no JVD Resp: COMMON NORMALS: normal respiratory effort and clear to auscultation bilaterally AUSCULTATION: clear to auscultation bilaterally Cardio: COMMON NORMALS: no JVD, regular rhythm, S1 normal heart sound present, S2 normal heart sound present and No murmurs present (Cardio) RHYTHM: regular rhythm HEART SOUNDS: S1 normal heart sound present and S2 normal heart sound present GI: COMMON NORMALS: Normal to inspection, nondistended, normoactive bowel sounds present, Soft to palpation and non-tender PALPATION: Yes Soft to palpation Extremity: COMMON NORMALS: no joint enlargement and no pedal edema Neuro: COMMON NORMALS: moves all extremities MENINGEAL SIGNS: Yes no meningeal signs MOTOR EXAM: Motor abnormalities not present OTHER: Laying in bed, good but gets up to ambulate. I do not note rigidity, no myoclonus. Skin: COMMON NORMALS: no rashes or lesions noted GENERAL SKIN EXAM: no rashes or lesions noted Data : 07/03/21 09:09 07/03/21 09:09 A&P Assessment and plan (1) Acute psychosis: Today he is more confused than he was day before yesterday. Today and yesterday has received Benadryl. We will discontinue at this time to reduce chance that this may be worse confusion secondary to anticholinergic effects. With history of schizoaffective disorder. Appears to be having acute psychotic episode either secondary to his primary illness or could have been triggered by acute illness, COVID-19, possibly steroid related psychosis. Hold steroids. Continue home medications. Continue management as per psychiatry team. Status: Acute (2) TYLER (acute kidney injury): Creatinine today up to 1.8. Still mild rhabdomyolysis, but CK 1065. Statin has been held. The concerning part is he is not really eating or drinking well. Encourage oral intake. We will recheck labs tomorrow. If renal function not improving, or worsening, may need to come to medical floor for additional IV fluid challenge. Recheck CK. Has received several doses of Benadryl. Due to concern for anticholinergic effect, requested staff perform bladder scan, straight cath as needed. Status: Acute (3) Gastritis: No vomiting. Abdomen soft. However, appetite appears poor. Continue PPI. Sucralfate. Do not restart steroids at discharge. Trial of diet. Question of free air noted on abdominal series. Not seen on CT abdomen pelvis. 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 Acute exacerbation of gastritis with history of PUD. This appears to be steroid related with recent course of dexamethasone prescribed in the course of COVID-19 moderate illness. Zofran, Reglan as needed for nausea. Requested ECG. Reported current smoker, but has reportedly had EGD. H. pylori negative. After discharge follow up w PCP. Status: Chronic (4) Abnormal urinalysis: No growth on urine culture. Microscopic hematuria noted with 15-25 RBC. Only 0-4 WBC. 0-4 squamous epithelial cells. Urine culture is pending. Hold off antibiotics. So far no growth after 1 day. He is reported to be current smoker, would need follow-up for resolution of hematuria with PCP. Otherwise if not resolving may need additional work-up to exclude urologic malignancy. Status: Acute (5) IVC thrombosis: Transition to p.o. anticoagulation. Incidentally noted on CT abdomen pelvis after recent COVID-19 illness. Status: Acute (6) Rhabdomyolysis: Initially improving, but now slight worsening. Statin held. Encourage oral intake. Recheck CK. Status: Acute (7) Nausea with vomiting, unspecified: So far appears resolved. As above. Status: Acute Qualifiers: Vomiting type: hematemesis Qualified Code(s): K92.0 - Hematemesis (8) Intellectual disability: Status: Chronic Attestations Medical Necessity Statement*: Continue admission for acute psychosis, reassess renal function with acute kidney injury. Coding Level of Care Code Acute [employer] for g Fwd Diagnoses Acute psychosis F23 TYLER (acute kidney injury) N17.9 Gastritis K29.70 Abnormal urinalysis R82.90 IVC thrombosis I82.220 Rhabdomyolysis M62.82 Nausea with vomiting, unspecified K92.0 Vomiting type: hematemesis Intellectual disability F79
[2021-07-03 22:29] VITALS: BP 110/68; PULSE 90; RESP 18; TEMP 36.1; O2SAT 97
[2021-07-04] MEDS: haloperidol inj 5 mg/mL INJ 1 mL IM (01:39)
[2021-07-04] MEDS: LORazepam 2 mg/mL INJ 1 mL IM (01:39)
[2021-07-04] MEDS: diphenhydrAMINE 50 mg/mL SDV 1mL IM (01:40)
--- NOTE | 2021-07-04 01:46 | PC.NURSE ---
PRN administered a B52 1ml Benadryl, 1ml Ativan, 1ml of Haldol IM injections. Pt yelling and talking non-stop yelling cuss words and wandering the halls. Pt has a 1:1 sitter with him at all times. Pt would not calm down with redirection. Dr. Angela was notified and gave permission to give the IM injections. Will continue to monitor pt until end of shift.
[2021-07-04 06:49] VITALS: RESP 15
[2021-07-04 11:25] LABS: Basophils % 0.6 %; Eosinophils # 0.1 10^3/uL (0.0-0.8); Eosinophils % 1.6 %; Hematocrit 37.2 % (42.0-52.0); Hemoglobin 12.4 g/dL (11.7-16.6); Lymphocytes # 0.9 10^3/uL (0.8-4.8); Lymphocytes % 17.6 %; Mean Corpuscular HGB Conc 33.3 g/dL (30.0-36.0); Mean Corpuscular Hemoglobin 30.4 pg (28.0-34.0); Mean Corpuscular Volume 91.2 fl (80-94); Mean Platelet Volume 9.7 fL (7.4-10.4); Monocytes # 0.7 10^3/uL (0.2-0.9); Monocytes % 14.3 %; Neutrophils # 3.22 10^3/uL (1.8-7.7); Neutrophils % 65.7 %; Nucleated Red Blood Cells % 0 %; Platelet Count 399 10^3/cmm (130-400); Red Blood Count 4.08 10^6/uL (4.1-5.3); Red Cell Distribution Width 13.1 % (12.1-15.1); White Blood Count 4.9 10^3/uL (4.0-10.0)
[2021-07-04 11:39] LABS: Alanine Aminotransferase 15 U/L (0-41); Albumin Level 3.7 g/dL (3.5-5.2); Alkaline Phosphatase 60 IU/L (40-130); Anion Gap 18.6 (5-19); Aspartate Amino Transferase 42 U/L (0-40); Blood Urea Nitrogen 49 mg/dL (8-23); Calcium 9.5 mg/dL (8.5-10.5); Carbon Dioxide 24 mmol/L (22-29); Chloride 105 mmol/L (98-107); Globulin 3.2 g/dL (1.3-4.6); Glomerular Filtration Rate 47.6 mL/min (90-130); Glucose 70 mg/dL (65-115); Osmolality Calculated 307 mOsm/kg (285-295); Potassium 4.6 mmol/L (3.5-5.1); Sodium 143 mmol/L (136-145); Total Bilirubin 0.6 mg/dL (0.15-1.2); Total Protein 6.9 g/dL (6.6-8.7)
[2021-07-04 11:43] LABS: Creatine Phosphokinase 1332 U/L (39-308)
--- NOTE | 2021-07-04 13:55 | PM.NPN ---
Subjective NPU Subjective: Interval history: The nurses note from 1 AM today states: administered a B52 1ml Benadryl, 1ml Ativan, 1ml of Haldol IM injections. Pt yelling and talking non-stop yelling cuss words and wandering the halls. Pt has a 1:1 sitter with him at all times. Pt would not calm down with redirection. Dr. Angela was notified and gave permission to give the IM injections. Will continue to monitor pt until end of shift. The patient is asleep and we have not woken him up because he needs his rest to recover from the psychosis. Mental Status Exam MSE Comments: Sleeping quietly in bed. Vitals/I&O/Wt Last Vital Signs Temp 96.9 F L 07/03/21 22:29 Pulse 90 07/03/21 22:29 Resp 15 07/04/21 06:49 BP 110/68 07/03/21 22:29 Pulse Ox 97 07/03/21 22:29 Data NPU : 07/04/21 10:21 07/04/21 10:21 A&P Assessment and plan (1) TYLER (acute kidney injury): Status: Acute (2) IVC thrombosis: Status: Acute (3) Rhabdomyolysis: Status: Acute (4) Abnormal urinalysis: Status: Acute (5) Acute psychosis: Status: Acute (6) Gastritis: Status: Chronic (7) Intellectual disability: Status: Chronic (8) Schizoaffective disorder: Status: Chronic Qualifiers: Schizoaffective disorder type: unspecified Qualified Code(s): F25.9 - Schizoaffective disorder, unspecified (9) Hypertension: Status: Chronic Qualifiers: Hypertension type: essential hypertension Qualified Code(s): I10 - Essential (primary) hypertension Additional A&P Information López Eckert is a 61 year old male with a history of schizophrenia who was brought to the ED by his sister because of his disorganized, impulsive, and increasingly aggressive behavior. Insomnia and behavioral issues developed after he had Covid about 3 weeks ago. We thought that his psychosis was exacerbated by steroid treatment, but it turns out that, although the steroids were prescribed, they were never given. So now it seems that the most likely cause of his psychotic exacerbation is physical or psychological sequela of Covid infection. 1. Appreciate the support and thorough examination and recommendations of the medical team. We will continue to follow the recommendations. 2. He appears to have rhabdomyolysis and the dispatcher chief oil is following closely. 3. Continue current medication. Steroids have been held. 4. Continue on 1:1 observation for safety. 5. Encourage individual, group and milieu therapies. 6. Encourage sober living treatment after discharge at the highest level of care to which he is willing to commit. Involuntary Hold Information 96 Hour Hold: 96 Hour Involuntary Admission: No Attestations NPU Medical Necessity Statement*: Psychiatric hospitalization is medically necessary to prevent access to lethal means, to reevaluate medication, provide a structured environment which can direct his behavior and control his impulsivity, and to coordinate a safe discharge. Likely length of stay is 5 to 7 days. Coding Level of Care Code Acute Apple Sorter for Brenda Richey Diagnoses TYLER (acute kidney injury) N17.9 IVC thrombosis I82.220 Rhabdomyolysis M62.82 Abnormal urinalysis R82.90 Acute psychosis F23 Gastritis K29.70 Intellectual disability F79 Schizoaffective disorder F25.9 Schizoaffective disorder type: unspecified Hypertension I10 Hypertension type: essential hypertension
[2021-07-04 16:52] VITALS: BP 109/77; PULSE 89; RESP 16; TEMP 37.1; O2SAT 96
--- NOTE | 2021-07-04 21:31 | P.PN_ITS ---
Subjective Subjective: Interval history: Did not sleep most of the night, and finally getting sleep this morning and afternoon. He is resting during my visit. Wakes up to speech. Is much calmer, cooperative, and currently oriented x3 for the first time in a while. He is able to tell me the current year, as well as that he is in the hospital. He states he would like to try to eat something. Denies pain or discomfort. Vitals/I&O/Wt Last Vital Signs Temp 98.7 F 07/04/21 16:52 Pulse 89 07/04/21 16:52 Resp 16 07/04/21 16:52 BP 109/77 07/04/21 16:52 Pulse Ox 96 07/04/21 16:52 Physical Exam Narrative: EXAM NARRATIVE: Resting. Wakes up easily. Cooperative. Calm. Const: COMMON NORMALS: no acute distress GENERAL APPEARANCE: cooperative and comfortable HENMT: COMMON NORMALS: oropharynx normal Neck/C-Spine: COMMON NORMALS: no meningeal signs and no JVD Resp: COMMON NORMALS: normal respiratory effort and clear to auscultation bilaterally AUSCULTATION: clear to auscultation bilaterally Cardio: COMMON NORMALS: no JVD, regular rhythm, S1 normal heart sound present, S2 normal heart sound present and No murmurs present (Cardio) RHYTHM: regular rhythm HEART SOUNDS: S1 normal heart sound present and S2 normal heart sound present GI: COMMON NORMALS: Normal to inspection, nondistended, normoactive bowel sounds present, Soft to palpation and non-tender PALPATION: Yes Soft to palpation Extremity: COMMON NORMALS: no joint enlargement and no pedal edema Neuro: COMMON NORMALS: moves all extremities MENINGEAL SIGNS: Yes no me ningeal signs MOTOR EXAM: Motor abnormalities not present Skin: COMMON NORMALS: no rashes or lesions noted GENERAL SKIN EXAM: no rashes or lesions noted Data : 07/04/21 10:21 07/04/21 10:21 A&P Assessment and plan (1) Acute psychosis: Did not sleep most of the night, but currently getting good rest and a ctually on waking up he is oriented x3. Calm. Cooperative. With history of schizoaffective disorder. Appears to be having acute psychotic episode either secondary to his primary illness or could have been triggered by acute illness, COVID-19. Possible steroid-induced psychosis considered, [facility] er, it is related by his sister that he did not take the steroids. Continue management as per psychiatry team. Reduce anticholinergic medications where possible. Status: Acute (2) TYLER (acute kidney injury): Somewhat better today, creatinine 1.5. Poor oral intake, but currently says would like to have some oral intake. CK noted with increase up to thirteen thirty-two. Will reassess labs again. If worsening renal function, still poor oral intake, may need to go to medical floor for additional IV fluid challenge, however, currently appears to be showing improvement in his mental status, and hopefully will start eating/drinking again. Noted producing urine. Bladder scan was done showing 0 mL. Status: Acute (3) Gastritis: No vomiting. Abdomen soft, nontender on exam. Appetite has been poor, but I believe this is more related to his acute psychosis. Continue PPI. Sucralfate. Do not restart steroids at discharge. P.o. intake as tolerating. Question of free air noted on abdominal series. Not seen on CT abdomen pelvis. 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 Acute exacerbation of gastritis with history of PUD. This appears to be steroid related with recent course of dexamethasone prescribed in the course of COVID-19 moderate illness. Zofran, Reglan as needed for nausea. Requested ECG. Reported current smoker, but has reportedly had EGD. H. pylori negative. After discharge follow up w PCP. Status: Chronic (4) Abnormal urinalysis: No growth on urine culture. Microscopic hematuria noted with 15-25 RBC. Only 0-4 WBC. 0-4 squamous epithelial cells. Urine culture is pending. Hold off antibiotics. So far no growth after 1 day. He is reported to be current smoker, would need follow-up for resolution of hematuria with PCP. Otherwise if not resolving may need additional work-up to exclude urologic malignancy. Status: Acute (5) IVC thrombosis: Transition to p.o. anticoagulation. Incidentally noted on CT abdomen pelvis after recent COVID-19 illness. Status: Acute (6) Rhabdomyolysis: Noted again some increase in CK up to one thousand three hundred thirty- two. Suspect secondary to dehydration with poor oral intake. Initially also compounded by statin. Currently mental status appears to be turning around. He feels he wants to eat. Statin held. Encourage oral intake. Recheck CK. He is afebrile. I do not note any muscle rigidity. Status: Acute (7) Nausea with vomiting, unspecified: So far appears resolved. As above. Status: Acute Qualifiers: Vomiting type: hematemesis Qualified Code(s): K92.0 - Hematemesis (8) Intellectual disability: Status: Chronic Attestations Medical Necessity Statement*: Continue admission for assessment nursing of acute psychosis, continued monitoring of renal function, rhabdomyolysis, encouragement and monitoring of p.o. intake. Coding Level of Care Code Acute Healthcare Financial Analyst for [facility] Fwd Diagnoses Acute psychosis F23 TYLER (acute kidney injury) N17.9 Gastritis K29.70 Abnormal urinalysis R82.90 IVC thrombosis I82.220 Rhabdomyolysis M62.82 Nausea with vomiting, unspecified K92.0 Vomiting type: hematemesis Intellectual disability F79
[2021-07-04] MEDS: risperiDONE 2 mg Tablet 4 MG PO (21:36)
[2021-07-04] MEDS: sucralfate 1 gm/10 mL Oral Liq UDC PO (21:36)
[2021-07-04] MEDS: pantoprazole DR 40 mg Tablet PO (21:36)
[2021-07-04] MEDS: apixaban 5 mg Tablet 10 MG PO (21:38)
[2021-07-04 22:21] VITALS: RESP 15
[2021-07-04] MEDS: ondansetron 4 MG Tablet PO (23:11)
[2021-07-05] MEDS: diphenhydrAMINE 50 mg/mL SDV 1mL IM (01:34)
[2021-07-05] MEDS: LORazepam 2 mg/mL INJ 1 mL IM (01:34)
--- NOTE | 2021-07-05 01:35 | PC.NURSE ---
PRN Administered 2mg Ativan, 50mg Benadryl, pt agitated and yelling, cussing, wandering around room and trying to damage property. Pt becoming unable to redirect. Will continue to monitor pt until end of shift.
[2021-07-05 06:00] VITALS: RESP 15
--- NOTE | 2021-07-05 09:10 | PC.NURSE ---
Patient sleeping, tray saved for later when patient awakes.
--- NOTE | 2021-07-05 10:36 | PM.NPN ---
Subjective NPU Subjective: Interval history: I met with the patient in the day room along with his sitter. She says that he has been better today, nonaggressive so far. The patient says he is better to, although he has limited ability to communicate his internal experience. He says he feels happier, though the voices are bothering him. He says he feels dizzy when he gets up and his sitter says that he is a little wobbly on his feet. He denies having suicidal or homicidal ideation. He denies any other side effects from medication. He does say that his body hurts all over. Mental Status Exam MSE Comments: I met with the patient in the day room along with his sitter. He is sitting still, eating breakfast.. He was dressed in hospital scrubs and fairly unkempt. He had last psychomotor agitation. Speech is still difficult to understand. Alert, oriented to person, and situation. Memory is still questionable. Mood is worried. Affect is flat but not angry. Thought process is concrete. Thought content: He admits to auditory hallucinations today, and says that they bother him. No delusions noted. No current suicidal ideation. He denies urges to harm others and has not been aggressive. Insight and judgment appear to be quite impaired. He is he may be a little less impulsive today. Vitals/I&O/Wt Last Vital Signs Temp 98.7 F 07/04/21 16:52 Pulse 89 07/04/21 16:52 Resp 15 07/05/21 06:00 BP 109/77 07/04/21 16:52 Pulse Ox 96 07/04/21 16:52 Data NPU : 07/04/21 10:21 07/04/21 10:21 A&P Assessment and plan (1) TYLER (acute kidney injury): Status: Acute (2) IVC thrombosis: Status: Acute (3) Rhabdomyolysis: Status: Acute (4) Abnormal urinalysis: Status: Acute (5) Acute psychosis: Status: Acute (6) Gastritis: Status: Chronic (7) Intellectual disability: Status: Chronic (8) Nausea with vomiting, unspecified: Status: Acute Qualifiers: Vomiting type: hematemesis Qualified Code(s): K92.0 - Hematemesis (9) Schizoaffective disorder: Status: Chronic Qualifiers: Schizoaffective disorder type: unspecified Qualified Code(s): F25.9 - Schizoaffective disorder, unspecified (10) Hypertension: Status: Chronic Qualifiers: Hypertension type: essential hypertension Qualified Code(s): I10 - Essential (primary) hypertension Additional A&P Information López Eckert is a 61 year old male with a history of schizophrenia who was brought to the ED by his sister because of his disorganized, impulsive, and increasingly aggressive behavior. Insomnia and behavioral issues developed after he had Covid about 3 weeks ago. We thought that his psychosis was exacerbated by steroid treatment, but it turns out that, although the steroids were prescribed, they were never given. So now it seems that the most likely cause of his psychotic exacerbation is physical or psychological sequela of Covid infection. 1. Appreciate the support and thorough examination and recommendations of the medical team. We will continue to follow the recommendations. 2. He appears to have rhabdomyolysis and the global transportation manager is following closely. He is considering sending the patient to a medical floor for IV fluids, if his fluid intake cannot increase here. 3. Continue current medication. Steroids have been held. Considering decreasing the dose of Risperdal, but the hallucinations are still bothering the patient substantially. 4. Continue on 1:1 observation for safety. 5. Encourage individual, group and milieu therapies. Involuntary Hold Information 96 Hour Hold: 96 Hour Involuntary Admission: No Attestations NPU Medical Necessity Statement*: Psychiatric hospitalization is medically necessary to prevent access to lethal means, to reevaluate medication, provide a structured environment which can direct his behavior and control his impulsivity, and to coordinate a safe discharge. Likely length of stay is 5 to 7 days. Coding Level of Care Code Acute [employer] for [facility] Fwd Diagnoses TYLER (acute kidney injury) N17.9 IVC thrombosis I82.220 Rhabdomyolysis M62.82 Abnormal urinalysis R82.90 Acute psychosis F23 Gastritis K29.70 Intellectual disability F79 Nausea with vomiting, unspecified K92.0 Vomiting type: hematemesis Schizoaffective disorder F25.9 Schizoaffective disorder type: unspecified Hypertension I10 Hypertension type: essential hypertension
[2021-07-05] MEDS: risperiDONE 1 mg Tablet PO (11:01)
[2021-07-05] MEDS: sucralfate 1 gm/10 mL Oral Liq UDC PO (11:02)
[2021-07-05] MEDS: escitalopram 10 mg Tablet PO (11:02)
[2021-07-05] MEDS: cholecalciferol (vitamin D3) 5,000 unit Tablet 5000 UNIT PO (11:02)
[2021-07-05] MEDS: cetirizine 10 mg Tablet PO (11:02)
[2021-07-05] MEDS: acetaminophen 325 mg Tablet 650 MG PO (11:03)
[2021-07-05 14:00] VITALS: BP 105/68; PULSE 78; RESP 18; TEMP 36.7; O2SAT 93
[2021-07-05 15:59] LABS: Basophils % 0.7 %; Eosinophils % 0.7 %; Hematocrit 49.7 % (42.0-52.0); Hemoglobin 15.5 g/dL (11.7-16.6); Lymphocytes # 0.8 10^3/uL (0.8-4.8); Lymphocytes % 19.2 %; Mean Corpuscular HGB Conc 31.2 g/dL (30.0-36.0); Mean Corpuscular Hemoglobin 30.9 pg (28.0-34.0); Mean Platelet Volume 9.9 fL (7.4-10.4); Monocytes # 0.3 10^3/uL (0.2-0.9); Monocytes % 6.2 %; Neutrophils # 3.19 10^3/uL (1.8-7.7); Neutrophils % 72.7 %; Nucleated Red Blood Cells % 0 %; Platelet Count 369 10^3/cmm (130-400); Red Blood Count 5.02 10^6/uL (4.1-5.3); Red Cell Distribution Width 13.2 % (12.1-15.1); White Blood Count 4.4 10^3/uL (4.0-10.0)
[2021-07-05] MEDS: haloperidol inj 5 mg/mL INJ 1 mL IM (16:53)
--- NOTE | 2021-07-05 17:45 | P.PN_ITS ---
Subjective Subjective: Interval history: Sitting up in bed, playing with drawers of his bedside table. Speaking with random statements. Put me into the truck . Does appear to respond to questions, although not always appropriately. I'm López . When asked if he could eat something states yes, however, per discussion with staff drinks, then spits out on the floor. When asked if he is having abdominal pain states yes, I think I might be . He is cooperative with exam, but then gets distracted again. Vitals/I&O/Wt Last Vital Signs Temp 98.1 F 07/05/21 14:00 Pulse 78 07/05/21 14:00 Resp 18 07/05/21 14:00 BP 105/68 07/05/21 14:00 Pulse Ox 93 07/05/21 14:00 Physical Exam Const: COMMON NORMALS: no acute distress GENERAL APPEARANCE: cooperative and comfortable ORIENTATION/CONSCIOUSNESS: Yes confused HENMT: COMMON NORMALS: oropharynx normal Neck/C-Spine: COMMON NORMALS: no meningeal signs and no JVD Resp: COMMON NORMALS: normal respiratory effort and clear to auscultation bilaterally AUSCULTATION: clear to auscultation bilaterally Cardio: COMMON NORMALS: no JVD, regular rhythm, S1 normal heart sound present, S2 normal heart sound present and No murmurs present (Cardio) RHYTHM: regular rhythm HEART SOUNDS: S1 normal heart sound present and S2 normal heart sound present GI: COMMON NORMALS: Normal to inspection, nondistended, normoactive bowel sounds present, Soft to palpation and non-tender PALPATION: Yes Soft to palpation Extremity: COMMON NORMALS: no joint enlargement and no pedal edema Neuro: COMMON NORMALS: moves all extremities MENINGEAL SIGNS: Yes no meningeal signs MOTOR EXAM: Motor abnormalities not present OTHER: Laying across the bed, then gets up, sits up at the side for the conversation. Again no rigidity, no myoclonus. Skin: COMMON NORMALS: no rashes or lesions noted GENERAL SKIN EXAM: no rashes or lesions noted Data : 07/05/21 15:43 07/05/21 17:46 A&P Assessment and plan (1) Acute psychosis: He is cooperative with exam, but otherwise continues getting distracted, getting up and around the bed. Playing with the drawers on the dresser. Making nonsensical statements. No rigidity. No myoclonus. CK elevated, with some improvement today. However, without other signs, without fever, not suspecting serotonin syndrome. Does not appear to have features of NMS. Will discuss also with psychiatry. Still does not appear to be reliably eating. Modified barium swallow was requested, but can be obtained on weekend. Speech therapy evaluation requested, appreciate. Remains afebrile, without leukocytosis. With history of schizoaffective disorder. Appears to be having acute psychotic episode either secondary to his primary illness or could have been triggered by acute illness, COVID-19. Possible steroid-induced psychosis considered, however, it is related by his sister that he did not take the steroids. Continue management as per psychiatry team. Reduce anticholinergic medications where possible. Status: Acute (2) TYLER (acute kidney injury): Slightly better today, creatinine down to 1.4. CK slightly better down to 1100. Appears to have some metabolic acidosis, anion gap elevation. Suspect secondary to acute kidney injury. Will check also ketones. Abdomen soft, but will check lactic acid as well. Continue to encourage oral intake as tolerating. Obtain modified barium swallow when possible. Speech therapy evaluation requested. Noted producing urine. Bladder scan was done showing 0 mL. Status: Acute (3) Gastritis: No vomiting. Abdomen soft, nontender on exam. Appetite poor, poor oral intake. He is taking his medications, however. Continue PPI. Sucralfate. Do not restart steroids at discharge. P.o. intake as tolerating. Question of free air noted on abdominal series. Not seen on CT abdomen pelvis. 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 Acute exacerbation of gastritis with history of PUD. This appears to be steroid related with recent course of dexamethasone prescribed in the course of COVID-19 moderate illness. Zofran, Reglan as needed for nausea. Requested ECG. Reported current smoker, but has reportedly had EGD. H. pylori negative. After discharge follow up w PCP. Status: Chronic (4) Abnormal urinalysis: No growth on urine culture. Microscopic hematuria noted with 15-25 RBC. Only 0-4 WBC. 0-4 squamous e pithelial cells. Urine culture is pending. Hold off antibiotics. So far no growth after 1 day. He is reported to be current smoker, would need follow-up for resolution of hematuria with PCP. Otherwise if not resolving may need additional work-up to exclude urologic malignancy. Status: Acute (5) IVC thrombosis: Transition to p.o. anticoagulation. Incidentally noted on CT abdomen pelvis after recent COVID-19 illness. Status: Acute (6) Rhabdomyolysis: With improvement. Continue to encourage oral intake. Reassess. He is afebrile. I do not note any muscle rigidity. Status: Acute (7) Nausea with vomiting, unspecified: So far appears resolved. As above. Status: Acute Qualifiers: Vomiting type: hematemesis Qualified Code(s): K92.0 - Hematemesis (8) Intellectual disability: Status: Chronic Attestations Medical Necessity Statement*: Continue admission for cyst management of ongoing psychosis, complicated by poor oral intake, improving acute kidney injury. Coding Level of Care Code Acute Studio Control Operator for [facility] Diagnoses Acute psychosis F23 TYLER (acute kidney injury) N17.9 Gastritis K29.70 Abnormal urinalysis R82.90 IVC thrombosis I82.220 Rhabdomyolysis M62.82 Nausea with vomiting, unspecified K92.0 Vomiting type: hematemesis Intellectual disability F79
[2021-07-05 18:34] LABS: Alanine Aminotransferase 16 U/L (0-41); Albumin Level 3.9 g/dL (3.5-5.2); Alkaline Phosphatase 68 IU/L (40-130); Anion Gap 26.6 (5-19); Aspartate Amino Transferase 37 U/L (0-40); Blood Urea Nitrogen 49 mg/dL (8-23); Calcium 9.5 mg/dL (8.5-10.5); Carbon Dioxide 16 mmol/L (22-29); Chloride 107 mmol/L (98-107); Globulin 3.7 g/dL (1.3-4.6); Glomerular Filtration Rate 51.5 mL/min (90-130); Glucose 73 mg/dL (65-115); Osmolality Calculated 312 mOsm/kg (285-295); Potassium 4.6 mmol/L (3.5-5.1); Sodium 145 mmol/L (136-145); Total Bilirubin 0.6 mg/dL (0.15-1.2); Total Protein 7.6 g/dL (6.6-8.7)
[2021-07-05 18:40] LABS: Creatine Phosphokinase 1132 U/L (39-308)
[2021-07-05 18:59] LABS: CKMB 4.5 ng/mL (0-10.4)
[2021-07-05] MEDS: hyDROXYzine 25 mg Capsule 50 MG PO (21:12)
--- NOTE | 2021-07-05 21:15 | PC.NURSE ---
attempt made to give pt his HS meds in pudding unsuccessful. pt spit all medication out whole.
[2021-07-05 22:00] VITALS: BP 107/72; PULSE 98; RESP 17; TEMP 36.7; O2SAT 96
[2021-07-06] MEDS: diphenhydrAMINE 50 mg/mL SDV 1mL IM
[2021-07-06] MEDS: LORazepam 2 mg/mL INJ 1 mL IM
[2021-07-06] MEDS: haloperidol inj 5 mg/mL INJ 1 mL IM
--- NOTE | 2021-07-06 00:46 | PC.NURSE ---
pt continues with agitation, constantly yelling at sitter and staff, playing with the emergency light in both the bathroom and his room. Ativan 2mg IM, Haldol 5mg IM and Benadryl 50mg IM given per Dr Angela's notification.
[2021-07-06 06:00] VITALS: RESP 15
[2021-07-06] MEDS: risperiDONE 1 mg Tablet PO (09:20)
[2021-07-06] MEDS: escitalopram 10 mg Tablet PO (09:20)
[2021-07-06] MEDS: apixaban 5 mg Tablet 10 MG PO ×2 (09:20→22:03)
--- NOTE | 2021-07-06 12:34 | CTR_ITS ---
PROCEDURE INFORMATION: Exam: CT Head Without Contrast Exam date and time: 07/06/2021 12:34 PM Age: 61 years old Clinical indication: Altered mental status/memory loss; Confusion or disorientation; Patient HX: Altered mental status, confusion, psychosis TECHNIQUE: Imaging protocol: Computed tomography of the head without contrast. Radiation optimization: All CT scans at this facility use at least one of these dose optimization techniques: automated exposure control; mA and/or kV adjustment per patient size (includes targeted exams where dose is matched to clinical indication); or iterative reconstruction. COMPARISON: CT head wo con* [id number] 02/04/2018 11:29 AM RADIATION DOSE METRICS: Total DLP (mGy-cm): 844.09 FINDINGS: Brain: There is volume loss. There is mild periventricular white matter lucency. No evidence of acute infarct. No hemorrhage or extra-axial collection. There is no mass. Cerebral ventricles: No ventriculomegaly. Paranasal sinuses: There is mucosal thickening in the sinuses. There is more extensive opacification of the sphenoid sinus with an air-fluid level. Mastoid air cells: Visualized mastoid air cells are well aerated. Bones/joints: Unremarkable. No acute fracture. Soft tissues: Unremarkable. CT/CT head wo con* [id number] IMPRESSION: 1. Volume loss and mild chronic microvascular disease. 2. No acute intracranial lesion or injury 3. Sinusitis Radiation Dose CTDIVOL = (mGy): DLP = 844.09 (mGy-cm)
--- NOTE | 2021-07-06 12:37 | PM.NPN ---
Subjective NPU Subjective: Interval history: The patient is more somnolent this morning and has not been taking in many fluids. The nurse was able to assist him in drinking some tea and taking some medications this morning. I discussed the case with Dr. Rodriguez. He had advised yesterday that the patient had an adequate intake, it would be better to treat him on the medical floor for some time, to make sure that he is adequately hydrated and has no other medical issues. I spoke with the patient's sister Jeanine by phone and explained the situation. She said that when he gets agitated and more psychotic like this, he often does not eat or drink. She was happy that we were making the transfer. Mental Status Exam MSE Comments: The patient is more somnolent today, but psychosis continues when he is awake. Vitals/I&O/Wt Last Vital Signs Temp 98.0 F 07/05/21 22:00 Pulse 98 07/05/21 22:00 Resp 15 07/06/21 06:00 BP 107/72 07/05/21 22:00 Pulse Ox 96 07/05/21 22:00 Weight last 48 hrs Weight 78.018 kg Data NPU : 07/05/21 15:43 07/05/21 17:46 A&P Assessment and plan (1) TYLER (acute kidney injury): Status: Acute (2) IVC thrombosis: Status: Acute (3) Rhabdomyolysis: Status: Acute (4) Abnormal urinalysis: Status: Acute (5) Acute psychosis: Status: Acute (6) Gastritis: Status: Chronic (7) Intellectual disability: Status: Chronic (8) Schizoaffective disorder: Status: Chronic Qualifiers: Schizoaffective disorder type: unspecified Qualified Code(s): F25.9 - Schizoaffective disorder, unspecified (9) Hypertension: Status: Chronic Qualifiers: Hypertension type: essential hypertension Qualified Code(s): I10 - Essential (primary) hypertension Additional A&P Information López Eckert is a 61 year old male with a history of schizophrenia who was brought to the ED by his sister because of his disorganized, impulsive, and increasingly aggressive behavior. Insomnia and behavioral issues developed after he had Covid about 3 weeks ago. We thought that his psychosis was exacerbated by steroid treatment, but it turns out that, although the steroids were prescribed, they were never given. So now it seems that the most likely cause of his psychotic exacerbation is physical or psychological sequela of Covid infection. 1. Appreciate the support and thorough examination and recommendations of the medical team. We will transfer the patient to the medical floor today, under the care of Dr. Rodriguez. The plan is to give him IV fluids to make sure his intake is adequate. 2. He appears to have rhabdomyolysis and the paint brush maker is following closely. 3. Continue current medication. Steroids have been held. Considering decreasing the dose of Risperdal, but the hallucinations are still bothering the patient substantially. 4. Continue on 1:1 observation for safety. 5. Encourage individual, group and milieu therapies. 6. Consider head CT due to the patient's confusion. Involuntary Hold Information 96 Hour Hold: 96 Hour Involuntary Admission: No Attestations NPU Medical Necessity Statement*: Psychiatric hospitalization is medically necessary to prevent access to lethal means, to reevaluate medication, provide a structured environment which can direct his behavior and control his impulsivity, and to coordinate a safe discharge. Likely length of stay is 5 to 7 days. Coding Level of Care Code Acute Truck Technician for [facility] Fwd Diagnoses TYLER (acute kidney injury) N17.9 IVC thrombosis I82.220 Rhabdomyolysis M62.82 Abnormal urinalysis R82.90 Acute psychosis F23 Gastritis K29.70 Intellectual disability F79 Schizoaffective disorder F25.9 Schizoaffective disorder type: unspecified Hypertension I10 Hypertension type: essential hypertension
[2021-07-06 12:56] LABS: Basophils % 0.8 %; Eosinophils # 0.1 10^3/uL (0.0-0.8); Eosinophils % 1.3 %; Hematocrit 41.8 % (42.0-52.0); Hemoglobin 14.2 g/dL (11.7-16.6); Lymphocytes # 0.7 10^3/uL (0.8-4.8); Lymphocytes % 12.8 %; Mean Corpuscular Hemoglobin 31.3 pg (28.0-34.0); Mean Corpuscular Volume 92.3 fl (80-94); Mean Platelet Volume 9.8 fL (7.4-10.4); Monocytes # 0.4 10^3/uL (0.2-0.9); Monocytes % 7.7 %; Neutrophils # 4.11 10^3/uL (1.8-7.7); Nucleated Red Blood Cells % 0 %; Platelet Count 437 10^3/cmm (130-400); Red Blood Count 4.53 10^6/uL (4.1-5.3); Red Cell Distribution Width 13.2 % (12.1-15.1); White Blood Count 5.3 10^3/uL (4.0-10.0)
[2021-07-06 13:07] LABS: Alanine Aminotransferase 16 U/L (0-41); Albumin Level 3.8 g/dL (3.5-5.2); Alkaline Phosphatase 69 IU/L (40-130); Blood Urea Nitrogen 40 mg/dL (8-23); Calcium 9.8 mg/dL (8.5-10.5); Carbon Dioxide 23 mmol/L (22-29); Chloride 109 mmol/L (98-107); Globulin 3.3 g/dL (1.3-4.6); Glomerular Filtration Rate 51.5 mL/min (90-130); Glucose 108 mg/dL (65-115); Osmolality Calculated 314 mOsm/kg (285-295); Sodium 147 mmol/L (136-145); Total Bilirubin 0.6 mg/dL (0.15-1.2); Total Protein 7.1 g/dL (6.6-8.7)
[2021-07-06 13:08] LABS: Lactate (Lactic Acid level) 0.8 mmol/L (0.5-2.2)
[2021-07-06 13:31] LABS: Aspartate Amino Transferase 35 U/L (0-40)
[2021-07-06 13:33] LABS: Creatine Phosphokinase 778 U/L (39-308)
[2021-07-06 13:44] LABS: Ketone (Acetest) Serum Negative (Negative)
[2021-07-06 14:00] VITALS: BP 124/79; PULSE 66; RESP 16; TEMP 36.7; O2SAT 95
--- NOTE | 2021-07-06 14:47 | PM.PN ---
Subjective Subjective: Interval history: Sleeping, wakes up to voice. Today reported generally weaker. When asked if he knows where he is replies clinic . Denies pain apart from some in his backside. Reported to symptoms be stating to hurt all over. Vitals/I&O/Wt Last Vital Signs Temp 98.0 F 07/06/21 14:00 Pulse 66 07/06/21 14:00 Resp 16 07/06/21 14:00 BP 124/79 07/06/21 14:00 Pulse Ox 95 07/06/21 14:00 Weight last 48 hrs Weight 78.018 kg Physical Exam Narrative: EXAM NARRATIVE: Resting. Wakes up to voice. Generally appears weaker, not animated like last few days. Const: COMMON NORMALS: no acute distress GENERAL APPEARANCE: cooperative and comfortable ORIENTATION/CONSCIOUSNESS: Yes confused HENMT: MOUTH: other (dry) Neck/C-Spine: COMMON NORMALS: no meningeal signs and no JVD Resp: COMMON NORMALS: normal respiratory effort and clear to auscultation bilaterally AUSCULTATION: clear to auscultation bilaterally Cardio: COMMON NORMALS: no JVD, regular rhythm, S1 normal heart sound present, S2 normal heart sound present and No murmurs present (Cardio) RHYTHM: regular rhythm HEART SOUNDS: S1 normal heart sound present and S2 normal heart sound present GI: COMMON NORMALS: Normal to inspection, nondistended, normoactive bowel sounds present, Soft to palpation and non-tender PALPATION: Yes Soft to palpation Extremity: COMMON NORMALS: no joint enlargement and no pedal edema Neuro: COMMON NORMALS: moves all extremities MENINGEAL SIGNS: Yes no meningeal signs MOTOR EXAM: Motor abnormalities not present OTHER: No rigidity, no myoclonus. Skin: COMMON NORMALS: no rashes or lesions noted GENERAL SKIN EXAM: no rashes or lesions noted Data : 07/06/21 11:57 07/06/21 11:57 A&P Assessment and plan (1) Acute psychosis: Today he is resting in bed, but generally appears weaker. With poor oral intake recently. Dry mouth, sodium is worse. Renal function about steady, but without significant improvement. Per discussion with psychiatry we will move him to medical floor to provide IV hydration. Continue pursuit of assessment with speech therapy pending MBS. Reassess renal function, CK. Continue attempts to reestablish oral intake. As well as obtain CT of the head. Repeat UA. No rigidity. No myoclonus. CK elevated, with some improvement today. However, without other signs, without fever, not suspecting serotonin syndrome. Also discussed with psychiatry, unlikely NMS. Remains afebrile, without leukocytosis. With history of schizoaffective disorder. Appears to be having acute psychotic episode either secondary to his primary illness or could have been triggered by acute illness, COVID-19. Possible steroid-induced psychosis considered, however, it is related by his sister that he did not take the steroids. Continue management as per psychiatry team. Reduce anticholinergic medications where possible. Status: Acute (2) TYLER (acute kidney injury): This prescription was psychiatry, moving to medical surgical floor. We will give IV fluid challenge. Reassess renal function, CK. He does appear dehydrated, weaker, dry mouth, with worsening sodium, persistent elevation of BUN. Encourage oral intake as tolerating. Continue to encourage oral intake as tolerating. Obtain modified barium swallow when possible. Speech therapy evaluation requested. Noted producing urine. Bladder scan was done showing 0 mL. Status: Acute (3) Gastritis: No vomiting, although has had very poor oral intake. Does take medications on most of the time. Not having abdominal pain. Abdomen soft, nontender on palpation. Not entirely clear reason for lack of oral intake. As above additional assessment with speech therapy, MBS when possible. Continue PPI. Sucralfate. Avoid steroids. P.o. intake as tolerating. Question of free air noted on abdominal series. Not seen on CT abdomen pelvis. 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 Acute exacerbation of gastritis with history of PUD. This appears to be steroid related with recent course of dexamethasone prescribed in the course of COVID-19 moderate illness. Zofran, Reglan as needed for nausea. Requested ECG. Reported current smoker, but has reportedly had EGD. H. pylori negative. After discharge follow up w PCP. Status: Chronic (4) Abnormal urinalysis: No growth on urine culture. Microscopic hematuria noted with 15-25 RBC. Only 0-4 WBC. 0-4 squamous epithelial cells. Repeat UA. He is reported to be current smoker, would need follow-up for resolution of hematuria with PCP. Otherwise if not resolving may need additional work-up to exclude urologic malignancy. Status: Acute (5) IVC thrombosis: Transition to p.o. anticoagulation. Incidentally noted on CT abdomen pelvis after recent COVID-19 illness. Status: Acute (6) Rhabdomyolysis: With improvement. Continue to encourage oral intake. Reassess. He is afebrile. I do not note any muscle rigidity. Status: Acute (7) Nausea with vomiting, unspecified: So far appears resolved. As above. Status: Acute Qualifiers: Vomiting type: hematemesis Qualified Code(s): K92.0 - Hematemesis (8) Intellectual disability: Status: Chronic Attestations Medical Necessity Statement*: Continue admission to medical surgical floor currently due to ongoing poor oral intake, dehydration, hypernatremia, acute kidney injury, rhabdomyolysis, acute psychosis. Coding Level of Care Code Acute Debarker Operator for [facility] Fwd Exam Comprehensive Diagnoses Acute psychosis F23 TYLER (acute kidney injury) N17.9 Gastritis K29.70 Abnormal urinalysis R82.90 IVC thrombosis I82.220 Rhabdomyolysis M62.82 Nausea with vomiting, unspecified K92.0 Vomiting type: hematemesis Intellectual disability F79
[2021-07-06] MEDS: dextrose 5%-sod chloride 0.45% 1,000 ML 75 ML IV (15:42)
[2021-07-06 15:55] VITALS: BP 116/78; PULSE 78; RESP 16; TEMP 36.6; O2SAT 97
[2021-07-06] MEDS: sucralfate 1 gm Tablet PO ×2 (16:06→22:05)
[2021-07-06 19:29] VITALS: BP 99/65; PULSE 67; RESP 20; TEMP 36.8; O2SAT 97
[2021-07-06] MEDS: risperiDONE 2 mg Tablet 4 MG PO (22:02)
[2021-07-06] MEDS: pantoprazole DR 40 mg Tablet PO (22:03)
[2021-07-06 23:00] VITALS: BP 103/66; PULSE 63; RESP 20; TEMP 36.4; O2SAT 97
[2021-07-07] VITALS (9 sets, daily range): BP systolic 96–106; BP diastolic 52–67; PULSE 53–72; RESP 16–20; TEMP 36.3–37.1; O2SAT 96–99
[2021-07-07] MEDS: dextrose 5%-sod chloride 0.45% 1,000 ML 75 ML IV (04:22)
[2021-07-07] MEDS: sucralfate 1 gm Tablet PO ×3 (06:05→20:04)
--- NOTE | 2021-07-07 06:23 | PC.NURSE ---
BLADDER SCAN Pt has not urinated this shift. Told us he didn't have to go. Bladder Scan done and showed 544ml urine and pt did c/o tenderness when done. Assisted to stand at bedside to try to urinate and went 625ml without difficulty.
[2021-07-07] MEDS: apixaban 5 mg Tablet 10 MG PO ×2 (08:03→20:03)
[2021-07-07] MEDS: escitalopram 10 mg Tablet PO (08:03)
[2021-07-07] MEDS: risperiDONE 1 mg Tablet PO (08:03)
[2021-07-07] MEDS: cholecalciferol (vitamin D3) 5,000 unit Tablet 5000 UNIT PO (08:03)
[2021-07-07] MEDS: cetirizine 10 mg Tablet PO (08:04)
[2021-07-07 08:10] LABS: Basophils % 0.5 %; Eosinophils # 0.1 10^3/uL (0.0-0.8); Eosinophils % 1.6 %; Hemoglobin 11.9 g/dL (11.7-16.6); Lymphocytes % 17.3 %; Mean Corpuscular HGB Conc 33.1 g/dL (30.0-36.0); Mean Corpuscular Hemoglobin 30.7 pg (28.0-34.0); Mean Platelet Volume 10.4 fL (7.4-10.4); Monocytes # 0.3 10^3/uL (0.2-0.9); Neutrophils # 4.08 10^3/uL (1.8-7.7); Neutrophils % 74.4 %; Nucleated Red Blood Cells % 0 %; Platelet Count 354 10^3/cmm (130-400); Red Blood Count 3.87 10^6/uL (4.1-5.3); Red Cell Distribution Width 13.2 % (12.1-15.1); White Blood Count 5.5 10^3/uL (4.0-10.0)
[2021-07-07 08:32] LABS: Alanine Aminotransferase 13 U/L (0-41); Albumin Level 3.2 g/dL (3.5-5.2); Alkaline Phosphatase 51 IU/L (40-130); Anion Gap 14.8 (5-19); Aspartate Amino Transferase 23 U/L (0-40); Blood Urea Nitrogen 33 mg/dL (8-23); Calcium 8.1 mg/dL (8.5-10.5); Carbon Dioxide 25 mmol/L (22-29); Chloride 106 mmol/L (98-107); Creatinine Clr Calc Pharmacy 80.3238; Globulin 2.7 g/dL (1.3-4.6); Glomerular Filtration Rate 68.1 mL/min (90-130); Glucose 471 mg/dL (65-115); Osmolality Calculated 322 mOsm/kg (285-295); Potassium 3.8 mmol/L (3.5-5.1); Sodium 142 mmol/L (136-145); Thyroid Stimulating Hormone 1.29 uIU/mL (0.27-4.20); Total Bilirubin 0.5 mg/dL (0.15-1.2); Total Protein 5.9 g/dL (6.6-8.7)
[2021-07-07 09:05] LABS: Creatine Phosphokinase 391 U/L (39-308)
[2021-07-07] MEDS: pantoprazole DR 40 mg Tablet PO ×2 (09:45→20:05)
--- NOTE | 2021-07-07 13:24 | PM.PN ---
Subjective Subjective: Interval history: López reports he is feeling okay today. Medications: Reviewed: Yes Vitals/I&O/Wt Last Vital Signs Temp 98.6 F 07/07/21 11:00 Pulse 61 07/07/21 11:00 Resp 17 07/07/21 11:00 BP 103/67 07/07/21 11:00 Pulse Ox 96 07/07/21 11:00 07/06/21 07/07/21 07/07/21 22:59 06:59 14:59 Intake Total 240 / 240 1430 / 1670 200 / 200 Output Total 625 / 625 Balance 240 / 240 805 / 1045 200 / 200 Weight last 48 hrs Weight 78.018 kg Physical Exam Narrative: EXAM NARRATIVE: General exam no distress Neck is supple Cardiovascular regular rate and rhythm without murmur Lungs clear Abdomen is soft with positive bowel sounds Extremities no cyanosis clubbing or edema Data : 07/07/21 06:41 07/07/21 06:41 A&P Assessment and plan (1) Acute psychosis: He appears to be more interactive today, with increased p.o. intake. Reduce fluids slightly. Encourage p.o. intake. Psychosis appears improved Status: Acute (2) TYLER (acute kidney injury): Improving. No evidence of urinary retention. Status: Acute (3) Gastritis: Continue PPI Status: Chronic (4) Abnormal urinalysis: No growth on urine culture. Microscopic hematuria, 15-25 red blood cells. Can follow-up with urology or primary as an outpatient. Status: Acute (5) IVC thrombosis: Incidentally found after recent COVID-19 illness Continue anticoagulation Status: Acute (6) Rhabdomyolysis: Resolving Status: Acute (7) Nausea with vomiting, unspecified: Resolved Status: Acute Qualifiers: Vomiting type: hematemesis Qualified Code(s): K92.0 - Hematemesis (8) Intellectual disability: Status: Chronic Additional A&P Information Overall improving Eliquis will suffice for DVT prophylaxis. Attestations Medical Necessity Statement*: Needs continued hospitalization for close monitoring of acute psychosis, dehydration now resolving, IVC thrombus Coding Level of Care Code Acute Program Instructor for [facility] Fwd Diagnoses Acute psychosis F23 TYLER (acute kidney injury) N17.9 Gastritis K29.70 Abnormal urinalysis R82.90 IVC thrombosis I82.220 Rhabdomyolysis M62.82 Nausea with vomiting, unspecified K92.0 Vomiting type: hematemesis Intellectual disability F79
--- NOTE | 2021-07-07 14:29 | PC.NURSE ---
Patient drank his Ensure
--- NOTE | 2021-07-07 16:29 | PC.NURSE ---
Dressing change completed at this time. Patient did not tolerate dressing change very well.
--- NOTE | 2021-07-07 17:00 | PC.NURSE ---
Patient did void but this nurde forgot and emptied it before obtaining a sample.
[2021-07-07] MEDS: dextrose 5%-sod chloride 0.45% 1,000 ML 50 ML IV (18:33)
[2021-07-07] MEDS: risperiDONE 2 mg Tablet 4 MG PO (20:03)
[2021-07-08] MEDS: acetaminophen 325 mg Tablet 650 MG PO (01:37)
[2021-07-08 02:55] LABS: Add Urine Microscopic? NO; Charge for UA Resulting for Rev
[2021-07-08 03:00] VITALS: BP 100/63; PULSE 58; RESP 16; TEMP 36.9; O2SAT 96
[2021-07-08 03:00] LABS: Bilirubin Urine Neg (Negative); Blood Urine Neg (Negative); Glucose Urine UA Norm (Normal); Ketones Urine Negative (Negative); Leukocyte Esterase Urine Negative (Negative); Nitrate Urine Negative (Negative); Protein Urine Neg (Negative); Specific Gravity, Urine 1.015 (1.005-1.030); Urine Appearance Clear (CLEAR); Urine Color Yellow (Yellow); Urobilinogen Urine Norm (Negative); pH Urine 5 (5-7)
[2021-07-08] MEDS: sucralfate 1 gm Tablet PO ×3 (06:10→21:03)
--- NOTE | 2021-07-08 06:29 | PC.NURSE ---
Shift Summary Pt was calm all night tonight, he slept for a little over an hr but was awake the rest of the night. He stayed in bed and was talking to himself/having auditory hallucinations
[2021-07-08 06:43] LABS: Eosinophils # 0.1 10^3/uL (0.0-0.8); Eosinophils % 3.1 %; Hematocrit 35.3 % (42.0-52.0); Hemoglobin 12.2 g/dL (11.7-16.6); Lymphocytes # 1.2 10^3/uL (0.8-4.8); Lymphocytes % 27.4 %; Mean Corpuscular HGB Conc 34.6 g/dL (30.0-36.0); Mean Corpuscular Hemoglobin 31.1 pg (28.0-34.0); Mean Corpuscular Volume 90.1 fl (80-94); Monocytes # 0.3 10^3/uL (0.2-0.9); Monocytes % 7.6 %; Neutrophils # 2.54 10^3/uL (1.8-7.7); Neutrophils % 60.4 %; Nucleated Red Blood Cells % 0 %; Platelet Count 312 10^3/cmm (130-400); Red Blood Count 3.92 10^6/uL (4.1-5.3); Red Cell Distribution Width 12.5 % (12.1-15.1); White Blood Count 4.2 10^3/uL (4.0-10.0)
[2021-07-08 07:00] VITALS: BP 109/63; PULSE 58; RESP 17; TEMP 37.1; O2SAT 96
[2021-07-08 07:08] LABS: Alanine Aminotransferase 11 U/L (0-41); Alkaline Phosphatase 53 IU/L (40-130); Anion Gap 13.3 (5-19); Aspartate Amino Transferase 18 U/L (0-40); Blood Urea Nitrogen 18 mg/dL (8-23); Calcium 8.6 mg/dL (8.5-10.5); Carbon Dioxide 25 mmol/L (22-29); Chloride 104 mmol/L (98-107); Globulin 2.9 g/dL (1.3-4.6); Glomerular Filtration Rate 85.8 mL/min (90-130); Glucose 95 mg/dL (65-115); Osmolality Calculated 290 mOsm/kg (285-295); Potassium 3.3 mmol/L (3.5-5.1); Sodium 139 mmol/L (136-145); Total Bilirubin 0.6 mg/dL (0.15-1.2); Total Protein 5.9 g/dL (6.6-8.7)
[2021-07-08] MEDS: potassium chloride ER 20 mEq Tablet 40 MEQ PO (08:27)
[2021-07-08] MEDS: risperiDONE 1 mg Tablet PO ×2 (08:28→21:04)
[2021-07-08] MEDS: pantoprazole DR 40 mg Tablet PO ×2 (08:28→21:04)
[2021-07-08] MEDS: apixaban 5 mg Tablet 10 MG PO ×2 (08:28→21:04)
[2021-07-08] MEDS: escitalopram 10 mg Tablet PO (08:28)
[2021-07-08] MEDS: cetirizine 10 mg Tablet PO (08:28)
[2021-07-08] MEDS: cholecalciferol (vitamin D3) 5,000 unit Tablet 5000 UNIT PO (08:28)
[2021-07-08] MEDS: OLANZapine 5 mg ODT PO ×2 (08:30→13:33)
[2021-07-08] MEDS: hyDROXYzine 25 mg Capsule 50 MG PO ×2 (09:34→21:03)
[2021-07-08 10:03] VITALS: PULSE 58; RESP 18; O2SAT 96
[2021-07-08] MEDS: haloperidol 5 mg Tablet PO (10:19)
--- NOTE | 2021-07-08 10:46 | PM.PN ---
Subjective Subjective: Interval history: Very talkative. Some flight of ideas. Able to ambulate. Drinking well. Feeding needs prompted. Medications: Reviewed: Yes Vitals/I&O/Wt Last Vital Signs Temp 98.7 F 07/08/21 07:00 Pulse 58 L 07/08/21 10:03 Resp 18 07/08/21 10:03 BP 109/63 07/08/21 07:00 Pulse Ox 96 07/08/21 10:03 07/07/21 07/08/21 07/08/21 22:59 06:59 14:59 Intake Total 950.00 / 1400.00 480 / 1880.00 240 / 240 Output Total 675 / 675 300 / 975 Balance 275.00 / 725.00 180 / 905.00 240 / 240 Physical Exam Narrative: EXAM NARRATIVE: General exam no distress, very talkative Neck is supple Cardiovascular regular rate and rhythm without murmur Lungs clear Abdomen is soft with positive bowel sounds Extremities no cyanosis clubbing or edema Data : 07/08/21 06:06 07/08/21 06:06 A&P Assessment and plan (1) Acute psychosis: Fluids may be discontinued Very talkative today with flight of ideas. Zyprexa has been given. Psychosis has improved to a point he can drink, and certainly eats but this requires prompting. Status: Acute (2) TYLER (acute kidney injury): Resolved. No evidence of urinary retention. Status: Acute (3) Gastritis: Continue PPI Status: Chronic (4) Abnormal urinalysis: No growth on urine culture. Microscopic hematuria, 15-25 red blood cells. Can follow-up with urology or primary as an outpatient. 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 On July 10 this can be changed to 5 mg of Eliquis every 12 hours Status: Acute (6) Rhabdomyolysis: Resolving Status: Acute (7) Nausea with vomiting, unspecified: Resolved Status: Acute Qualifiers: Vomiting type: hematemesis Qualified Code(s): K92.0 - Hematemesis (8) Intellectual disability: Status: Chronic Additional A&P Information Overall improved Eliquis will suffice for DVT prophylaxis. May transfer back to neuropsychiatric unit. I will continue to follow Attestations Medical Necessity Statement*: Needs continued hospitalization secondary to psychosis and underlying mental health disorder. Coding Level of Care Code Acute Montessori Teacher for [facility] Fwd Diagnoses Acute psychosis F23 TYLER (acute kidney injury) N17.9 Gastritis K29.70 Abnormal urinalysis R82.90 IVC thrombosis I82.220 Rhabdomyolysis M62.82 Nausea with vomiting, unspecified K92.0 Vomiting type: hematemesis Intellectual disability F79
[2021-07-08 10:52] VITALS: BP 102/67; PULSE 62; RESP 17; TEMP 36.4; O2SAT 100
[2021-07-08 15:00] VITALS: BP 140/72; PULSE 78; RESP 17; TEMP 36.9; O2SAT 97
--- NOTE | 2021-07-08 16:37 | P.PN_ITS ---
Subjective NPU Subjective: Interval history: I discussed the case with Dr. Randall who has been caring for the patient on the medical floor. He says that the patient has improved with IV fluids and dehydration has resolved. He is now more able to eat on his own and has been behaviorally calmer as well. He may need some assistance or motivation to keep eating. I spoke with the patient after he arrived back on the neuropsychiatric unit. He was sleepy and mumbling, hard to understand. He said that his stomach still hurt some. He denied hearing voices or seeing things that others did not see. He denies wanting to harm himself or others. He denies medication side effects. Mental Status Exam MSE Comments: He was dressed in hospital scrubs and fairly unkempt, somewhat able to cooperate. He had some psychomotor agitation. Speech is still difficult to understand. Alert, oriented to person, and situation. Memory is still questionable. Mood is improved. Affect is flat but pleasant. Thought process is concrete. Thought content: He denies auditory and visual hallucinations. No delusions noted. No current suicidal ideation. He denies urges to harm others and has not been aggressive. Insight and judgment appear to be somewhat improved. He is he may be a little less impulsive. Vitals/I&O/Wt Last Vital Signs Temp 97.4 F L 07/07/21 07:00 Pulse 64 07/07/21 07:00 Resp 16 07/07/21 07:00 BP 100/66 07/07/21 07:00 Pulse Ox 97 07/07/21 07:00 07/06/21 07/07/21 07/07/21 22:59 06:59 14:59 Intake Total 240 / 240 1430 / 1670 Output Total 625 / 625 Balance 240 / 240 805 / 1045 Weight last 48 hrs Weight 78.018 kg Data NPU : 07/08/21 06:06 07/08/21 06:06 A&P Additional A&P Information López Eckert is a 61 year old male with a history of schizophrenia who was brought to the ED by his sister because of his disorganized, impulsive, and increasingly aggressive behavior. Insomnia and behavioral issues developed after he had Covid about 3 weeks ago. We thought that his psychosis was exacerbated by steroid treatment, but it turns out that, although the steroids were prescribed, they were never given. So now it seems that the most likely cause of his psychotic exacerbation is physical or psychological sequela of Covid infection. 1. Appreciate the support and thorough examination and recommendations of the medical team. We will continue to follow the recommendations. 2. Dehydration and rhabdomyolysis have improved with treatment on the medical floor. 3. Continue current medication. Patient is improving on the current medication regimen. 4. We will transfer back to psychiatry. 5. Encourage individual, group and milieu therapies. Involuntary Hold Information 96 Hour Hold: 96 Hour Involuntary Admission: No Attestations NPU Medical Necessity Statement*: Psychiatric hospitalization is medically necessary to prevent access to lethal means, to reevaluate medication, provide a structured environment which can direct his behavior and control his impulsivity, and to coordinate a safe discharge. He is improving. Likely length of stay is 1-3 days. Coding Level of Care Code Acute Loss Prevention Operations Manager for Brenda Richey
--- NOTE | 2021-07-08 18:05 | PC.NURSE ---
Report to Marysol BAEZ at this time.
--- NOTE | 2021-07-08 19:10 | PC.NURSE ---
Report to Vj NUNEZ
[2021-07-08] MEDS: risperiDONE 2 mg Tablet 4 MG PO (21:03)
--- NOTE | 2021-07-08 22:17 | PC.NURSE ---
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 Pt smiling, interacting, no violence noted on this admission. Pt is confused and tired, placed in a medical bed near the nurses station for closer observation.
[2021-07-08 23:47] VITALS: RESP 16
--- NOTE | 2021-07-09 03:01 | PC.NURSE ---
61/M voluntary by guardian Hx of schizophrenia displaying disorganized, impulsive, and increasingly aggressive behavior. Guardian is concerned that he will cause damage to the family home. He is not sleeping and is up all night messing with the cook stove. Pt was treated for COVID-19 about 3 weeks ago and ever since then he has not gotten back to his baseline. Pt states he is hearing voices that tell him to kill Indians. He says he is planning to act on these commands.
[2021-07-09] MEDS: sucralfate 1 gm Tablet PO ×2 (05:55→11:29)
[2021-07-09 06:00] VITALS: BP 106/69; PULSE 58; RESP 18; TEMP 36.7; O2SAT 98
--- NOTE | 2021-07-09 08:00 | FL_ITS ---
WS: [id number] MODIFIED BARIUM SWALLOW TECHNIQUE: Modified barium swallow with speech therapy using multiple consistencies. FLUOROSCOPY TIME: 3.1 minutes. CLINICAL INFORMATION: Pharyngoesoph. dysphagia COMPARISON: None. FINDINGS: Multiple consistencies utilized. Moderate spondylitic changes cervical spine. Pooling in the vallecul a. Delayed oropharyngeal phase. Penetration. No keya aspiration. Patient unable to swallow tablet. FL/FL barium swallow modifd 55857 IMPRESSION: 1. Penetration with no keya aspiration. 2. Delayed oropharyngeal phase with pooling in the vallecula. 3. Patient unable to swallow tablet.
[2021-07-09] MEDS: escitalopram 10 mg Tablet PO (08:08)
[2021-07-09] MEDS: risperiDONE 1 mg Tablet PO (08:08)
[2021-07-09] MEDS: pantoprazole DR 40 mg Tablet PO (08:08)
[2021-07-09] MEDS: cholecalciferol (vitamin D3) 5,000 unit Tablet 5000 UNIT PO (08:08)
[2021-07-09] MEDS: cetirizine 10 mg Tablet PO (08:08)
[2021-07-09] MEDS: apixaban 5 mg Tablet 10 MG PO (08:08)
--- NOTE | 2021-07-09 10:41 | P.PN_ITS ---
Subjective Subjective: Interval history: López reports he is doing okay. Nurses relate he is eating better. Medications: Reviewed: Yes Vitals/I&O/Wt Last Vital Signs Temp 98.0 F 07/09/21 06:00 Pulse 58 L 07/09/21 06:00 Resp 18 07/09/21 06:00 BP 106/69 07/09/21 06:00 Pulse Ox 98 07/09/21 06:00 Physical Exam Narrative: EXAM NARRATIVE: General exam no distress, very talkative Neck is supple Cardiovascular regular rate and rhythm without murmur Lungs clear Abdomen is soft with positive bowel sounds Extremities no cyanosis clubbing or edema Data : 07/08/21 06:06 07/08/21 06:06 A&P Assessment and plan (1) Acute psychosis: Appears improved today, call Status: Acute (2) TYLER (acute kidney injury): Resolved. No evidence of urinary retention on bladder scan done previously Status: Acute (3) Gastritis: Continue PPI Status: Chronic (4) Abnormal urinalysis: No growth on urine culture. Microscopic hematuria, 15-25 red blood cells. Can follow-up with urology or primary as an outpatient. 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 On July 10 this can be changed to 5 mg of Eliquis every 12 hours Status: Acute (6) Rhabdomyolysis: Resolving Status: Acute (7) Nausea with vomiting, unspecified: Resolved Status: Acute Qualifiers: Vomiting type: hematemesis Qualified Code(s): K92.0 - Hematemesis (8) Intellectual disability: Status: Chronic Additional A&P Information Overall improved Eliquis will suffice for DVT prophylaxis. Attestations Medical Necessity Statement*: As per psychiatry Coding Level of Care Code Acute Aircraft Charter Dispatcher for g Fwd Diagnoses Acute psychosis F23 TYLER (acute kidney injury) N17.9 Gastritis K29.70 Abnormal urinalysis R82.90 IVC thrombosis I82.220 Rhabdomyolysis M62.82 Nausea with vomiting, unspecified K92.0 Vomiting type: hematemesis Intellectual disability F79
--- NOTE | 2021-07-09 10:57 | PC.NURSE ---
Addendum entered by Cecelia Ortiz LPN 07/09/21 11:10: RETURN TO UNIT FROM BARIUM SWALLOW Original Note: off floor for Barium swallow
--- NOTE | 2021-07-09 11:18 | PM.NDC ---
Diagnoses at Discharge Discharge Diagnosis (1) Acute psychosis: Status: Chronic (2) TYLER (acute kidney injury): Status: Acute (3) Gastritis: Status: Chronic (4) Abnormal urinalysis: Status: Acute (5) IVC thrombosis: Status: Acute (6) Rhabdomyolysis: Status: Acute (7) Nausea with vomiting, unspecified: Status: Acute Qualifiers: Vomiting type: hematemesis Qualified Code(s): K92.0 - Hematemesis (8) Intellectual disability: Status: Chronic Reason for Visit Reason for Visit: ams Brief History: López Eckert is a 61 year old male with a history of schizophrenia who was brought to the ED by his sister because of his disorganized, impulsive, and increasingly aggressive behavior. The ED note says: 61-year-old male who was brought into the emergency department by his sister with worsening behavioral issues. He has a history of schizophrenia and is on several antipsychotics. According to sister he was treated for COVID-19 about 3 weeks ago and ever since then he has not gotten back to his baseline. For the last few weeks he has not been sleeping well at night and yesterday he did not sleep a total at night, was up throughout the night thrush in the house turning on the stove risking fire, and being a little aggressive. Because of these the sister brought him into the emergency department for evaluation. The patient is a poor historian, likely due to his reported intellectual disability. He does report feeling worried and hearing voices that tell him to kill Indians. He says he is planning to act on these commands. He says he is sleeping and eating well, even though his sister reported that he isn't . He does agree that he had Covid in the past few weeks. He denies having breathing trouble but still has a cough. He denies drinking alcohol or using drugs, but he smokes 1 pack of cigarettes per day. He denies medication side effects. He sees Eva Wills APRN in the [facility] for outpatient psychiatric medication management. Her last note from 04/03/21 says: Talked with patient and his sister/guardian, Jeanine, who provides collateral information. Jeanine says López has been in a happy mood, he has been dancing around here. No reports of manic/hypomanic symptoms or acute mood dysphoria. No reported behavioral problems at home or in social situations. Jeanine says they do not go a lot of places. Patient receives his Risperdal injection every 2 weeks; most recent injection was on 04/02/21. López says he is doing okay and says he is sleeping and eating okay. His energy level is adequate. 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 He denies abnormal movements of his mouth/tongue; head/neck; extremities; and torso. Jeanine corroborates that he exhibits no side effects with his current psychotropics. Hospital Course Hospital Course The patient was admitted to the neuropsychiatric unit for definitive treatment of these issues. On the unit he slowly acclimated to the individual, group and milieu therapies. He was initially often agitated, wandering about the unit, sometimes becoming aggressive. He had some psychotic symptoms. There was a concern that his psychosis was caused by having taken steroids, but it turned out that he did not take them, even though they had been prescribed. We made sure that he took his medication and stayed safe. He was transferred for a couple of days to the med surg unit when his intake of fluids and food diminished. He was given IV fluids and he perked up both physically as well as in his alertness. Mood improved and his aggressive wandering subsided. His sister visited and felt that he was well on his way to recovery. She agreed that it was better for her to watch him at home at that point, then to continue in the hospital. During the hospitalization, patient had routine laboratory studies which were within normal limits except for few outliers. Additionally there was a general medical evaluation which was also within normal limits and revealed no new acute processes. Discharge Summary: I spoke with the patient's sister discharge and she agreed that he was ready to come home. We reviewed his treatment and future treatment needs. At the time of discharge, psychosis and lethality were denied. Mood and anxiety were much improved. Patient endorsed a plan to avoid all drugs of abuse and follow-up with the aftercare recommendations of the treatment team. Patient was evaluated and deemed to be absent credible lethality, and had achieved the maximum benefit from an inpatient hospitalization, so was discharged. Involuntary Hold Information 96 Hour Hold: 96 Hour Involuntary Admission: No Mental Status Exam MSE Comments: Much improved today. He is more alert, initiating appropriate greetings with others, more able to discuss his experiences. He was dressed in hospital scrubs and grooming has improved substantially, as has his ability to cooperate. No psychomotor agitation or retardation. Speech is more easily understood, and at a regular rate and rhythm. Alert, oriented to person, and situation. Memory is still questionable. Mood is improved. Affect is flat but pleasant. Thought process is concrete. Thought content: He denies auditory and visual hallucinations. No delusions noted. No current suicidal ideation. He denies urges to harm others and has not been aggressive. Insight and judgment appear to be somewhat improved. He is he may be a little less impulsive. Discharge Data Data Completed and Pending: Completed Studies During Hospitalization Category Date Time Status CT abdomen pelvis w con* 21794 Urge nt Cat Scan 06/30/21 23:[address] head wo con* 7 0450 Routine Cat Scan 07/06/21 12:34 Completed XR acute abdomen series 26284 Routi ne Exams 06/30/21 18:17 Completed Pending at discharge Category Date Time Status FL barium swallow modifd 47718 Rout ine Exams 07/09/21 08:00 Ordered Basic Metabolic P gurpreet AM LABS Lab 07/10/21 04:00 Ordered Vitals: Last Vital Signs Temp 98.0 F 07/09/21 06:00 Pulse 58 L 07/09/21 06:00 Resp 18 07/09/21 06:00 BP 106/69 07/09/21 06:00 Pulse Ox 98 07/09/21 06:00 Discharge Plan Discharge Patient Disposition: Home Condition: Stable Prescriptions: New Eliquis 5 mg tablet 5 mg PO BID Qty: 60 RF: 0 Continued cholecalciferol (vitamin D3) 5,000 unit capsule 5,000 unit PO DAILY RF: 0 cetirizine [Zyrtec] 10 mg tablet 10 mg PO DAILY Qty: 30 RF: 5 simvastatin 20 mg tablet 20 mg PO DAILY Qty: 90 RF: 1 Lexapro 10 mg tablet 10 mg PO DAILY Qty: 30 RF: 0 Risperdal Consta 37.5 mg/2 mL suspension,extended rel recon 37.5 mg IM Q14D Qty: 2 RF: 4 Risperdal 2 mg tablet 4 mg PO BEDTIME Qty: 60 RF: 2 docusate calcium [Stool Softener (docusate saroj)] 240 mg Capsule 240 mg PO DAILY RF: 0 omeprazole 40 mg Capsule,Delayed Release(Dr/Ec) 40 mg PO BID RF: 0 Risperdal 1 mg tablet 1 mg PO DAILY RF: 0 Changed Carafate 100 mg/mL suspension 10 ml PO QID Qty: 560 RF: 1 Discharge Orders: Discharge Order (Routine); Ordered 07/09/21 Ordered By: Neal Angela Referrals: Meron Robles, [facility] [Primary Care Provider] - 4-7 days (CBC, BMP in 3 to 5 days on follow-up. Consider evaluation of microscopic hematuria found in the hospital.) Discharge Diet: Soft Mechanical Discharge Activity: Resume usual activity Patient Instructions: Opioid Safety Discharge Attestations NPU Time Spent in Discharge Care*: greater than 30 min Specific Discharge Activities: Specific discharge activities: educating patient, educating and/or supporting family/caregiver, discussing with case management assistant/social workers/dc planners, documenting/other paperwork and evaluating patient/reviewing data Status at Discharge: Cognitive status at discharge: cognitively intact, Behavioral status at discharge: cooperative, Functional status at discharge: independent ambulation Overall status at discharge: patient is back to baseline Coding Level of Care Code Acute Chg FW DC note Diagnoses Acute psychosis F23 TYLER (acute kidney injury) N17.9 Gastritis K29.70 Abnormal urinalysis R82.90 IVC thrombosis I82.220 Rhabdomyolysis M62.82 Nausea with vomiting, unspecified K92.0 Vomiting type: hematemesis Intellectual disability F79
[2021-07-09 12:21] VITALS: BP 106/69; PULSE 58; RESP 18; TEMP 36.7; O2SAT 98
[2021-07-09 14:00] VITALS: BP 95/67; PULSE 78; RESP 18; TEMP 37.3; O2SAT 97
--- NOTE | 2021-07-09 15:15 | PC.SOCIAL ---
IMM Update Discussed medicare right's with pt's sister, Tanja. Verbalized understanding. Placed initialed, dated, timed copy in patient's chart.
== END 2021-07-09 16:22 | disposition home or self-care (01) | DRG 885 ==
LOC: ER 18:32 → NP 21:09 → MEDSURG 07-06 14:27 → NP 07-08 17:59
PROVIDERS: Internal Medicine; Admitting Provider Psychiatry & Neurology Psychiatry; Emergency Provider Family Medicine; PCP Nurse Practitioner; Visit Provider Psychiatry & Neurology Child & Adolescent Psychiatry
DX: F23 Brief psychotic disorder (principal); I82.220 Acute embolism and thrombosis of inferior vena cava; K92.0 Hematemesis; M62.82 Rhabdomyolysis; N17.9 Acute kidney failure, unspecified; F25.9 Schizoaffective disorder, unspecified; K21.9 Gastro-esophageal reflux disease without esophagitis; I10 Essential (primary) hypertension; E78.5 Hyperlipidemia, unspecified; F79 Unspecified intellectual disabilities; R82.90 Unspecified abnormal findings in urine; G47.00 Insomnia, unspecified; E86.0 Dehydration; Z86.16 Personal history of COVID-19; Z80.0 Family history of malignant neoplasm of digestive organs; Z79.01 Long term (current) use of anticoagulants
CPT/HCPCS: 36415; 51798; 70450; 74022; 74177; 74230; 80053; 80306; 80307; 81001; 81003; 82009; 82550; 82553; 83605; 84443; 85025; 87086; 92610; 92611; 96372; 99285; J1100; J1200; J1630; J1650; J2060; J2704; J7799; Q0162; Q9967

== ENCOUNTER → 2021-07-15 08:35 | Outpatient (BNVA) | payer MEDICARE, MEDICAID, SELFPAY | PROVIDERS: PCP Nurse Practitioner; Visit Provider Nurse Practitioner Psychiatric/Mental Health | DX: F25.9 Schizoaffective disorder, unspecified (principal); F79 Unspecified intellectual disabilities | CPT/HCPCS: 99214 ==

== ENCOUNTER → 2021-07-16 09:22 | Outpatient (BNVA) | payer MEDICARE, MEDICAID, SELFPAY | PROVIDERS: PCP Nurse Practitioner; Visit Provider Nurse Practitioner | DX: I10 Essential (primary) hypertension (principal); E78.5 Hyperlipidemia, unspecified; Z79.899 Other long term (current) drug therapy | CPT/HCPCS: 80053; 80061; 81000; 84443; 85025 ==

== ENCOUNTER → 2021-08-12 09:53 | Outpatient (BNVA) | payer MEDICARE, MEDICAID, SELFPAY | PROVIDERS: PCP Nurse Practitioner; Visit Provider Nurse Practitioner Psychiatric/Mental Health | DX: F25.9 Schizoaffective disorder, unspecified (principal); F79 Unspecified intellectual disabilities | CPT/HCPCS: 99213 ==

== ENCOUNTER → 2021-09-10 10:09 | Outpatient (BNVA) | payer MEDICARE, MEDICAID, SELFPAY | PROVIDERS: PCP Nurse Practitioner; Visit Provider Nurse Practitioner | DX: E78.5 Hyperlipidemia, unspecified (principal); I10 Essential (primary) hypertension | CPT/HCPCS: 80053; 80061; 85025 ==

== ENCOUNTER → 2021-10-16 10:52 | Outpatient (BNVA) | payer MEDICARE, MEDICAID, SELFPAY | PROVIDERS: PCP Nurse Practitioner; Visit Provider Nurse Practitioner Family | DX: R39.9 Unspecified symptoms and signs involving the genitourinary system (principal); H61.23 Impacted cerumen, bilateral; R53.83 Other fatigue | CPT/HCPCS: 80053; 81000; 85025 ==

== ENCOUNTER 2021-10-26 08:23 | Emergency (ER) | payer MEDICARE, MEDICAID, SELFPAY ==
[2021-10-26 08:30] VITALS: BP 115/84; PULSE 101; RESP 14; TEMP 36.7; O2SAT 96; BMI 22.4
--- NOTE | 2021-10-26 09:05 | W.ED.GENADLT ---
HPI - General Adult General: Chief complaint: Abdominal Pain Stated complaint: abd pain Time Seen by Provider: 10/26/21 08:27 History of Present Illness: HPI narrative: Patient is a 61-year-old male with a history of peptic ulcer prior GI bleeding presenting to emergency room with 2 episodes of coffee-ground emesis on Wednesday and Wednesday. Per , patient has significant emesis and she is concerned the patient may have peptic ulcer again. Of note, patient was transferred to [facility] about 6 months ago for similar evaluation was found to have ulcers in the lower esophageal tear. He denies any history of recent NSAID use. Denies any anticoagulation use. Patient does not have any history of cirrhosis. Patient did not have any coffee-ground emesis prior to these episodes of vomiting. Patient denies any melena or hematochezia. Currently complains of moderate midepigastric abdominal pain earlier today. Onset: 3 days ago Duration:ongoing Location:home Severity:moderate Review of Systems Narrative: Constitutional: No fever, no chills. HEENT: No vision changes CV: No chest pain, no palpitations PULM: no cough, no dyspnea. GI: +midepigastric abdominal pain, no N/V/D. : No dysuria MSKEL: No muscle pain SKIN: No new rashes, no lesions. NEURO: No headache, no focal weakness. HEME: No visible bruises PSYCH: Normal mood PFSH ED PFSH: Medical History Allergic rhinitis, unspecified Dyslipidemia Gastritis, unspecified, with bleeding GERD without esophagitis History of DVT (deep vein thrombosis) History of seizures as a child Hypertension Intellectual disability Psychiatric care Schizoaffective disorder Vitamin D insufficiency Surgical History No history of previous surgery Family History Father Cancer Colon Cancer Social History Second hand smoke exposure: No Smoking risk assessment/counseling performed?: No Alcohol intake: never Desire information about alcohol rehabilitation?: No Counseling given: No Desire information about substance/drug rehabilitation?: No Counseling given: No Caregiver/support person: Yes (sister) Lives independently: No Household members: family Housing: House Marital status: Single Highest education level completed: High School Graduate service: No Current occupational status: disabled Pets and animals: Yes History of recent travel: No Current gender identity: Male Physical Exam Narrative: EXAM NARRATIVE: Head: Atraumatic Eyes: PERRL, conjunctiva without injection ENT: Mucous membrane moist NECK: Supple, ROM intact LUNGS: LCTAB, no crackles/rhonchi CV: RRR ABDOMEN: Soft, +mild focal TTP to the epigastric area. NO guarding rebound, guarding, rigidity. No CVA tenderness to percussion. Neg Holman/Neg McBurney's point tenderness, no suprabupic tenderness to palpation. EXTREMITY: Normal ROM SKIN: No rash or erythema NEURO: Awake and alert, no focal motor deficits PSYCH: Normal mood and affect Course Vital Signs: Vital signs: Vital Signs Temperature 98.0 F 10/26/21 08:30 Pulse Rate 64 10/26/21 14:11 Respiratory Rate 18 10/26/21 14:11 Blood Pressure 110/89 10/26/21 14:11 Pulse Oximetry 96 10/26/21 14:11 MDM - General Adult MDM Narrative: Medical decision making narrative: Patient is a 61-year-old male history of recurrent GI bleed secondary to peptic ulcer presenting to the emergency room after 2 episodes of coffee-ground emesis and will 1 day of midepigastric abdominal pain. On exam, patient has moderate tenderness to palpation the midepigastric area. No guarding or rebound tenderness. Patient is afebrile, hemodynamically stable. Patient appears to be stable. Patient status post Protonix [address] abdomen pelvis showed esophagitis and thickening. Patient appears to be stable. Patient is noted to have hemoglobin 16.7. Case was discussed with Dr. Monte who was [facility] ascp consultant for GI. This patient has not had any bloody vomiting or coffee-ground emesis today, with reassuring hemoglobin, no melena or hematochezia, current fidnding of esophagitis on CT, and prior evaluation which showed esophagitis few months ago on EGD, Dr. Monte recommend close outpatient followup with EGD. I have dsicussed admission versus discharge for patient and his . Both patient and elects discharged with close follow-up with EP EGD study. Discussed the risk of leaving the hospital which include possible GI bleeding, and the risk that we have not entirely rule out peptic ulcer. Patient verbalized understanding of the risk and still elects to go home at this time. I have given patient follow up with our case management manager to be seen by our outpatient EGD study. Patient aware of a call from our case management manager to schedule for appointment(s) and verbalizes understanding of the importance of following up. On reassessment, patient received a GI cocktail in the ER and reports symptomatic improvement in terms of abdominal pain. Rx protonix 40mg BID Disposition: Discharge. Patient counseled regarding diagnostic impression, treatment plan. Patient given ED strict return precautions to return for continuation, worsening, or development of new symptoms. Instructed to f/u w/ PCP regarding symptoms today. Patient verbalized understanding. Lab Data: Labs: Lab Results 10/26/21 10/26/21 10/26/21 09:45 09:45 10:12 WBC 13.0 10^3/uL H 10 ^3/uL (4.0-10.0) RBC 5.57 10^6/uL H 10 ^6/uL (4.1-5.3) Hgb 16.7 g/dL H g/dL (11.7-16.6) Hct 47.7 % % (42.0-52.0) MCV 85.6 fl fl (80-94) MCH 30.0 pg pg (28.0-34.0) MCHC 35.0 g/dL g/dL (30.0-36.0) RDW 12.6 % % (12.1-15.1) Plt Count 295 10^3/cmm 10^3 /cmm (130-400) MPV 10.2 fL fL (7.4-10.4) Neut % (Auto) 89.3 % % Lymph % (Auto) 5.5 % % Jennings % (Auto) 4.8 % % Eos % (Auto) 0.0 % % Baso % (Auto) 0.2 % % Neut # (Auto) 11.62 10^3/uL H 1 0^3/uL (1.8-7.7) Lymph # (Auto) 0.7 10^3/uL L 10^ 3/uL (0.8-4.8) Jennings # (Auto) 0.6 10^3/uL 10^3/ uL (0.2-0.9) Eos # (Auto) 0.0 10^3/uL 10^3/ uL (0.0-0.8) Baso # (Auto) 0.0 10^3/uL 10^3/ uL (0.0-0.1) Nucleated RBC % (a uto) 0 % % Nucleated RBCs # 0.0 /100WBC /100W BC PT 16.40 SECONDS H S ECONDS (12.1-14.9) INR 1.29 H (0.8-1.2) APTT 23.6 SECONDS L SE CONDS (23.9-36.7) Sodium 143 mmol/L mmol/L (136-145) Potassium 4.2 mmol/L mmol/L (3.5-5.1) Chloride 100 mmol/L mmol/L (98-107) Carbon Dioxide 27 mmol/L mmol/L (22-29) Anion Gap 20.2 H (5-19) BUN 42 mg/dL H mg/dL (8-23) Creatinine 1.4 mg/dL H mg/dL (0.7-1.2) GFR Calculation 51.5 mL/min L mL/ min (90-130) Glucose 136 mg/dL H mg/dL (65-115) Calculated Osmolal ity 309 mOsm/kg H mOs m/kg (285-295) Calcium 9.2 mg/dL mg/dL (8.5-10.5) Total Bilirubin 0.5 mg/dL mg/dL (0.15-1.2) AST 12 U/L U/L (0-40) ALT 9 U/L U/L (0-41) Alkaline Phosphata se 63 IU/L IU/L (40-130) Total Protein 8.1 g/dL g/dL (6.6-8.7) Albumin 4.4 g/dL g/dL (3.5-5.2) Globulin 3.7 g/dL g/dL (1.3-4.6) Lipase 33 U/L U/L (13-60) Urine Color Urine Appearance Urine pH Ur Specific Gravit y Urine Protein Urine Glucose (UA) Urine Ketones Urine Blood Urine Nitrate Urine Bilirubin Urine Urobilinogen Ur Leukocyte Hannah ase Urine RBC Urine WBC Ur Squamous Epith Cells Amorphous Sediment Urine Bacteria Hyaline Casts Coarse Granular Ca sts Coronavirus 229E ( PCR) SARS-CoV-2 (PCR) 10/26/21 10/26/21 11:37 12:37 WBC RBC Hgb Hct MCV MCH MCHC RDW Plt Count MPV Neut % (Auto) Lymph % (Auto) Jennings % (Auto) Eos % (Auto) Baso % (Auto) Neut # (Auto) Lymph # (Auto) Jennings # (Auto) Eos # (Auto) Baso # (Auto) Nucleated RBC % (a uto) Nucleated RBCs # PT INR APTT Sodium Potassium Chloride Carbon Dioxide Anion Gap BUN Creatinine GFR Calculation Glucose Calculated Osmolal ity Calcium Total Bilirubin AST ALT Alkaline Phosphata se Total Protein Albumin Globulin Lipase Urine Color Yellow (Yellow) Urine Appearance Clear (CLEAR) Urine pH 5 (5-7) Ur Specific Gravit y 1.010 (1.005-1.030) Urine Protein Trace (Negative) Urine Glucose (UA) Norm (Normal) Urine Ketones Negative (Negative) Urine Blood 2+ H (Negative) Urine Nitrate Negative (Negative) Urine Bilirubin Neg (Negative) Urine Urobilinogen 1 mg/dL H mg/dL (Negative) Ur Leukocyte Hannah ase Negative (Negative) Urine RBC 0-4 /hpf H /hpf (0-2) Urine WBC None /hpf /hpf (0-5) Ur Squamous Epith Cells None /hpf /hpf (0-5) Amorphous Sediment Not Reportable Urine Bacteria Trace /hpf /hpf (NONE) Hyaline Casts 0-4 /lpf H /lpf Coarse Granular Ca sts Rare /lpf /lpf Coronavirus 229E ( PCR) Not detected (NOT DETECT) SARS-CoV-2 (PCR) Not detected (NOT DETECT) Discharge Plan Discharge Patient Disposition: Home Clinical Impression: Esophagitis, Abdominal pain Condition: Stable Prescriptions: New Maalox Advanced 1,000-60 mg tablet,chewable 1 tab PO TID PRN (Reason: abdominal pain) 7 Days Qty: 21 RF: 0 Pepcid 20 mg tablet 20 mg PO BID PRN (Reason: abdominal pain) 10 Days Qty: 20 RF: 0 Protonix 40 mg tablet,delayed release (DR/EC) 40 mg PO Q12H 10 Days Qty: 20 RF: 0 No Action cholecalciferol (vitamin D3) 5,000 unit capsule 5,000 unit PO DAILY RF: 0 Risperdal Consta 37.5 mg/2 mL suspension,extended rel recon 37.5 mg IM Q14D Qty: 2 RF: 4 Lexapro 10 mg tablet 10 mg PO DAILY Qty: 30 RF: 2 Risperdal 2 mg tablet 4 mg PO BEDTIME Qty: 60 RF: 2 cetirizine [Zyrtec] 10 mg tablet 10 mg PO DAILY Qty: 30 RF: 5 omeprazole 40 mg capsule,delayed release(DR/EC) 40 mg PO DAILY Qty: 30 RF: 2 sucralfate [Carafate] 100 mg/mL suspension 10 ml PO QID Qty: 560 RF: 1 Eliquis 5 mg tablet 5 mg PO BID Qty: 60 RF: 0 docusate sodium 100 mg Capsule 100 mg PO DAILY RF: 0 simvastatin 20 mg tablet 20 mg PO BEDTIME RF: 0 Discharge Orders: Discharge ED (Routine); Ordered 10/26/21 Ordered By: Angel Luis Bergeron Referrals: Meron Robles, DAIRY MANAGER-C [Primary Care Provider] - Discharge Diet: Advance as tolerated Discharge Activity: Resume usual activity Patient Instructions: Abdominal Pain (ED), Opioid Safety Activity Restrictions/Additional Instructions: Our case management manager will have you follow-up with Dr. Cullen in the next few days for EGD. You would be expected to have a phone call with our case management manager who will put you on the schedule. Come back to the emergency room if you notice any significant bloody vomits/coffee ground emesis or any other issues. Please come back if you have any worsening abdominal pain, fever or chills, nausea or vomiting, diarrhea, blood in the stool, inability hold down liquid or solids, or any new concerning complaints. Coding Level of Care Code ED Community Outreach Specialist for Brenda Richey
--- NOTE | 2021-10-26 09:17 | XRR_ITS ---
PROCEDURE INFORMATION: Exam: XR Abdomen Exam date and time: 10/26/2021 9:17 AM Age: 61 years old Clinical indication: Abdominal pain; Patient HX: Abd pain; Additional info: Abd pain/ eval free air TECHNIQUE: Imaging protocol: XR of the abdomen. Views: 2 Views. Upright and supine views. COMPARISON: CR XR chest 1V portable [id number] 01/15/2021 9:55 PM FINDINGS: Heart/Mediastinum: No cardiomegaly. Lungs: Lungs are clear. Pleural space: No pleural effusion or pneumothorax. Gastrointestinal tract: Prominent air-filled colon centered within the transverse colon and the hepatic/splenic flexure. There also appears to be thickened haustral markings. Intraperitoneal space: No free air. Bones/joints: Unremarkable for age. XR/XR acute abdomen series [id number] IMPRESSION: Prominent air-filled colon centered within the transverse colon and the hepatic/splenic flexure. The haustral markings also appear thickened which could be indicative of a nonspecific colitis. This can be further evaluate with CT as clinically indicated.
[2021-10-26 09:50] LABS: Basophils % 0.2 %; Hematocrit 47.7 % (42.0-52.0); Hemoglobin 16.7 g/dL (11.7-16.6); Lymphocytes # 0.7 10^3/uL (0.8-4.8); Lymphocytes % 5.5 %; Mean Corpuscular Volume 85.6 fl (80-94); Mean Platelet Volume 10.2 fL (7.4-10.4); Monocytes # 0.6 10^3/uL (0.2-0.9); Monocytes % 4.8 %; Neutrophils # 11.62 10^3/uL (1.8-7.7); Neutrophils % 89.3 %; Nucleated Red Blood Cells % 0 %; Platelet Count 295 10^3/cmm (130-400); Red Blood Count 5.57 10^6/uL (4.1-5.3); Red Cell Distribution Width 12.6 % (12.1-15.1)
[2021-10-26 10:06] LABS: Alanine Aminotransferase 9 U/L (0-41); Albumin Level 4.4 g/dL (3.5-5.2); Alkaline Phosphatase 63 IU/L (40-130); Anion Gap 20.2 (5-19); Aspartate Amino Transferase 12 U/L (0-40); Blood Urea Nitrogen 42 mg/dL (8-23); Calcium 9.2 mg/dL (8.5-10.5); Carbon Dioxide 27 mmol/L (22-29); Chloride 100 mmol/L (98-107); Globulin 3.7 g/dL (1.3-4.6); Glomerular Filtration Rate 51.5 mL/min (90-130); Glucose 136 mg/dL (65-115); Lipase 33 U/L (13-60); Osmolality Calculated 309 mOsm/kg (285-295); Potassium 4.2 mmol/L (3.5-5.1); Sodium 143 mmol/L (136-145); Total Bilirubin 0.5 mg/dL (0.15-1.2); Total Protein 8.1 g/dL (6.6-8.7)
[2021-10-26] MEDS: pantoprazole 40 mg SDV 80 MG IVP (10:15)
[2021-10-26] MEDS: sodium chloride 0.9% 1,000 ML 999 ML IV (10:24)
[2021-10-26 10:26] LABS: INR 1.29 (0.8-1.2)
[2021-10-26 10:27] LABS: Partial Thromboplastin Time 23.6 SECONDS (23.9-36.7)
--- NOTE | 2021-10-26 10:29 | CTR_ITS ---
PROCEDURE INFORMATION: Exam: CT Abdomen And Pelvis With Contrast Exam date and time: 10/26/2021 10:29 AM Age: 61 years old Clinical indication: Abdominal pain; Prior surgery; Surgery type: Gb; Additional info: Eval for colitis? TECHNIQUE: Imaging protocol: Computed tomography of the abdomen and pelvis with contrast. Radiation optimization: All CT scans at this facility use at least one of these dose optimization techniques: automated exposure control; mA and/or kV adjustment per patient size (includes targeted exams where dose is matched to clinical indication); or iterative reconstruction. Contrast material: VISI 320; Contrast volume: 95 ml; Contrast route: INTRAVENOUS (IV); COMPARISON: CT abdomen pelvis w con* [id number] 07/01/2021 12:13 AM RADIATION DOSE METRICS: Total DLP (mGy-cm): 1457.9 FINDINGS: Pleural spaces: Trace right pleural effusion. Mediastinal space: Circumferential wall thickening of the distal esophagus with mild mucosal hyperenhancement. Liver: Normal. No mass. Gallbladder and bile ducts: Cholecystectomy. No ductal dilation. Pancreas: Normal. No ductal dilation. Spleen: Normal. No splenomegaly. Adrenal glands: Normal. No mass. Kidneys and ureters: Asymmetric atrophy of the right kidney. 1.8 cm cyst noted in the lower pole of the left kidney. No hydronephrosis. Stomach and bowel: No obstruction. No signs of colitis. Scattered colonic diverticula without findings of acute diverticulitis. Appendix: No evidence of appendicitis. Intraperitoneal space: Unremarkable. No free air. No significant fluid collection. Vasculature: Unremarkable. No abdominal aortic aneurysm. Lymph nodes: Unremarkable. No enlarged lymph nodes. Urinary bladder: Unremarkable as visualized. Reproductive: Unremarkable as visualized. Bones/joints: No acute fracture. Soft tissues: Unremarkable. CT/CT abdomen pelvis w con* [id number] IMPRESSION: 1. No evidence of colitis. 2. Circumferential wall thickening and mild mucosal hyperenhancement of the distal esophagus. Findings may reflect gastroesophageal reflux and esophagitis. 3. Asymmetric atrophy of the right kidney. 4. Trace right pleural effusion. COMMENTS: Consistent with the [employer] [place] [employer]'s Incidental Findings Committee white paper (J Am Taya Radiol 2018): Any incidental renal lesion less than 1 cm or classified as too small to characterize, or any incidental cystic renal lesion characterized as simple-appearing, is likely benign. No follow-up imaging is recommended for these lesions per consensus recommendations based on imaging criteria.
[2021-10-26] MEDS: iodixanol 320 mg/mL 100mL Btl IV (11:01)
[2021-10-26 12:44] VITALS: BP 109/60; PULSE 78; RESP 16; O2SAT 96
[2021-10-26 12:52] LABS: Add Urine Microscopic? YES; Bacteria Urine TRACE /hpf; Bilirubin Urine Neg (Negative); Blood Urine 2+ (Negative); Glucose Urine UA Norm (Normal); Ketones Urine Negative (Negative); Leukocyte Esterase Urine Negative (Negative); Nitrate Urine Negative (Negative); Protein Urine Trace (Negative); RBC Urine 0-4 /hpf (0-2); Urine Appearance Clear (CLEAR); Urine Color Yellow (Yellow); Urobilinogen Urine 1 mg/dL (Negative); pH Urine 5 (5-7)
[2021-10-26 12:53] LABS: Add Urine Culture? No; Coarse Granular Casts Urine RARE /lpf; Hyaline Casts Urine 0-4 /lpf
[2021-10-26 14:11] VITALS: BP 110/89; PULSE 64; RESP 18; O2SAT 96
[2021-10-26 15:09] LABS: Adenovirus Not Detected (NOT DETECT); Chlamydia Pneumoniae Not Detected (NOT DETECT); Coronavirus 229E,HKU1,NL63,OC4 Not Detected (NOT DETECT); Human Metapneumovirus Not Detected (NOT DETECT); Human Rhinovirus/Enterovirus Not Detected (NOT DETECT); Influenza A Not Detected (NOT DETECT); Influenza A H1 Not Detected (NOT DETECT); Influenza A H1-2009 Not Detected (NOT DETECT); Influenza A H3 Not Detected (NOT DETECT); Influenza B Not Detected (NOT DETECT); Mycoplasma Pneumoniae Not Detected (NOT DETECT); Parainfluenza Virus Type 1 Not Detected (NOT DETECT); Parainfluenza Virus Type 2 Not Detected (NOT DETECT); Parainfluenza Virus Type 3 Not Detected (NOT DETECT); Parainfluenza Virus Type 4 Not Detected (NOT DETECT); Respiratory Syncytial Virus A Not Detected (NOT DETECT); Respiratory Syncytial Virus B Not Detected (NOT DETECT); SARS-COV-2 Not Detected (NOT DETECT)
--- NOTE | 2021-10-28 13:37 | DCPLANNER ---
sustainable products marketing manager had message to schedule a follow up appointment for patient with Dr. Cullen. sustainable products marketing manager called the office of Dr. Cullen, spoke with Judah, gave clinic patients information. A follow up appointment was scheduled for , October 30, 2021 at 2:[address] Cullen. sustainable products marketing manager called patients caregiver and gave her the appointment information.
--- NOTE | 2021-10-30 14:58 | DCPLANNER ---
Patient had a follow up appointment scheduled with Dr. Lopez - patient did attend appointment.
== END 2021-10-26 14:12 | disposition home or self-care (01) ==
PROVIDERS: Emergency Provider Emergency Medicine; PCP Nurse Practitioner
DX: K20.90 Esophagitis, unspecified without bleeding (principal); E78.5 Hyperlipidemia, unspecified; I10 Essential (primary) hypertension; Z20.822 Contact with and (suspected) exposure to COVID-19
CPT/HCPCS: 74022; 74177; 80053; 81001; 83690; 85025; 85610; 85730; 87635; 96361; 96374; 99283; C9113; J7030; Q9967

== ENCOUNTER → 2021-11-04 10:43 | Outpatient (BNVA) | payer MEDICARE, MEDICAID, SELFPAY | PROVIDERS: PCP Nurse Practitioner; Visit Provider Nurse Practitioner | DX: I10 Essential (primary) hypertension (principal) | CPT/HCPCS: 80053; 85025 ==

== ENCOUNTER → 2021-11-11 08:24 | Outpatient (BNVA) | payer MEDICARE, MEDICAID, SELFPAY | PROVIDERS: PCP Nurse Practitioner; Visit Provider Nurse Practitioner Psychiatric/Mental Health | DX: F25.9 Schizoaffective disorder, unspecified (principal); F79 Unspecified intellectual disabilities | CPT/HCPCS: 99213 ==

== ENCOUNTER → 2022-02-03 07:58 | Outpatient (BNVA) | payer MEDICARE, MEDICAID, SELFPAY | PROVIDERS: PCP Nurse Practitioner; Visit Provider Nurse Practitioner Psychiatric/Mental Health | DX: F25.9 Schizoaffective disorder, unspecified (principal); F79 Unspecified intellectual disabilities | CPT/HCPCS: 99214 ==

== ENCOUNTER → 2022-02-10 10:50 | Outpatient (BNVA) | payer MEDICARE, MEDICAID, SELFPAY | PROVIDERS: PCP Nurse Practitioner; Visit Provider Nurse Practitioner | DX: E78.5 Hyperlipidemia, unspecified (principal); J30.9 Allergic rhinitis, unspecified; E55.9 Vitamin D deficiency, unspecified | CPT/HCPCS: 80053; 81000; 82306; 82607; 84443; 85025 ==

== ENCOUNTER → 2022-03-19 14:21 | Outpatient (BNVA) | payer MEDICARE, MEDICAID, SELFPAY | PROVIDERS: PCP Nurse Practitioner; Visit Provider Nurse Practitioner Psychiatric/Mental Health | DX: F25.9 Schizoaffective disorder, unspecified (principal); F79 Unspecified intellectual disabilities | CPT/HCPCS: 99214 ==

== ENCOUNTER → 2022-07-21 14:30 | Outpatient (BNVA) | payer MEDICARE, MEDICAID, SELFPAY | PROVIDERS: PCP Nurse Practitioner; Visit Provider Nurse Practitioner | DX: K29.70 Gastritis, unspecified, without bleeding (principal); J30.9 Allergic rhinitis, unspecified; E78.5 Hyperlipidemia, unspecified; I10 Essential (primary) hypertension | CPT/HCPCS: 80053; 80061; 85025 ==

== ENCOUNTER → 2022-09-22 18:51 | Outpatient (BNVA) | payer MEDICARE, MEDICAID, SELFPAY | PROVIDERS: PCP Nurse Practitioner; Visit Provider Nurse Practitioner Family | DX: J06.9 Acute upper respiratory infection, unspecified (principal) | CPT/HCPCS: 87400 ==

== ENCOUNTER → 2023-01-20 10:01 | Outpatient (BNVA) | payer MEDICARE, MEDICAID, SELFPAY | PROVIDERS: PCP Nurse Practitioner; Visit Provider Nurse Practitioner | DX: J30.9 Allergic rhinitis, unspecified (principal); E78.5 Hyperlipidemia, unspecified; K29.70 Gastritis, unspecified, without bleeding; H61.23 Impacted cerumen, bilateral; Z79.899 Other long term (current) drug therapy | CPT/HCPCS: 80053; 80061; 83036; 85025 ==

== ENCOUNTER → 2023-08-04 11:49 | Outpatient (BNVA) | payer MEDICARE, MEDICAID, SELFPAY | PROVIDERS: PCP Nurse Practitioner; Visit Provider Nurse Practitioner | DX: J30.9 Allergic rhinitis, unspecified (principal); K29.70 Gastritis, unspecified, without bleeding; E78.5 Hyperlipidemia, unspecified; Z12.5 Encounter for screening for malignant neoplasm of prostate | CPT/HCPCS: 80053; 85025; G0103 ==

== ENCOUNTER → 2024-03-14 14:36 | Outpatient (BNVA) | payer MEDICARE, MEDICAID, SELFPAY | PROVIDERS: PCP Nurse Practitioner; Visit Provider Nurse Practitioner | DX: E78.5 Hyperlipidemia, unspecified (principal); E55.9 Vitamin D deficiency, unspecified; K29.70 Gastritis, unspecified, without bleeding; J30.9 Allergic rhinitis, unspecified; Z12.11 Encounter for screening for malignant neoplasm of colon; Z79.899 Other long term (current) drug therapy | CPT/HCPCS: 80053; 80061; 82306; 83036; 84443; 85025 ==

== ENCOUNTER → 2024-03-31 09:27 | Outpatient (BNVA) | payer MEDICARE, SELFPAY | PROVIDERS: PCP Nurse Practitioner; Referring Provider Nurse Practitioner; Visit Provider Surgery | DX: Z12.11 Encounter for screening for malignant neoplasm of colon (principal); Z80.0 Family history of malignant neoplasm of digestive organs | CPT/HCPCS: 99024; 99204 ==

== ENCOUNTER 2024-05-17 07:55 | Day surgery (SDC) | payer MEDICARE, SELFPAY ==
--- NOTE | 2024-05-17 09:26 | PM.HP ---
Providers/Chief Complaint Primary Care Provider: ZEYNEP Gamino Chief Complaint: Z12.11, Z80.0 History of Present Illness López Eckert is a 64 year old male Review of Systems General: Reports: 10 or more systems reviewed and unremarkable except in HPI and below Medications/Allergies Home Medications Medication Instructions Recorded Confirmed Last Taken Type cholecalciferol (vitamin D3) 125 5,000 unit PO DAILY 11/07/19 05/15/24 05/15/24 History mcg (5,000 unit) capsule escitalopram oxalate 10 mg tablet 10 mg PO DAILY #30 tabs 01/20/24 05/15/24 05/15/24 Rx (Lexapro) paliperidone palmitate 117 mg/0.75 117 mg (0.75 mL) IM Q30D #0.75 mL 01/24/24 05/15/24 05/15/24 Rx mL intramuscular syringe docusate sodium 100 mg capsule 100 mg PO DAILY #30 caps 03/14/24 05/15/24 Unknown Rx loratadine 10 mg tablet (Claritin) 10 mg PO DAILY #30 tabs 03/14/24 05/15/24 05/15/24 Rx pantoprazole 40 mg tablet,delayed 40 mg PO DAILY gastritis #30 tabs 03/14/24 05/15/24 05/15/24 Rx release (Protonix) simvastatin 20 mg tablet 20 mg PO BEDTIME #30 tabs 03/14/24 05/15/24 05/15/24 Rx sucralfate 1 gram tablet (Carafate) 1 g PO .4 times day #120 tabs 03/14/24 05/15/24 05/15/24 Rx Allergies Allergy/AdvReac Type Severity Reaction Status Date / Time No Known Allergies Allergy Verified 05/15/24 09:31 PFSH Acute PFSH: Medical History Family history of colon cancer Psychiatric care Gastritis, unspecified, with bleeding Intellectual disability Schizoaffective disorder History of seizures as a child Allergic rhinitis, unspecified Dyslipidemia Vitamin D insufficiency GERD without esophagitis History of DVT (deep vein thrombosis) Surgical History History of endoscopy 2012 Gastric bleed Family History Father Cancer Colon Cancer Social History Smoking and tobacco/nicotine status: never used tobacco/nicotine Second hand smoke exposure: No Alcohol intake: never Substance/Drug Use: never Caregiver/support person: Yes (sister) Lives independently: No Household members: family Housing: House Marital status: Single Highest education level completed: High School Graduate service: No Current occupational status: disabled Pets and animals: Yes Do you think of yourself as: Straight/Heterosexual Current gender identity: Male A&P Assessment and plan (1) Family history of colon cancer: Plan Colonoscopy Attestations Medical Necessity Statement*: Home Coding Level of Care Code Acute Code for Chg Fwd Diagnoses Family history of colon cancer Z80.0
[2024-05-17 11:04] VITALS: BP 136/79; PULSE 59; RESP 15; TEMP 36.7; O2SAT 97; BMI 23.1
[2024-05-17] MEDS: sodium chloride 0.9% 1,000 ML 30 ML IV (11:15)
--- NOTE | 2024-05-17 11:51 | P.ANESASSM_ITS ---
Pre-Anesthetic Assessment Height/Weight: Height 1.83 m Weight 77.564 kg Temp Pulse Resp BP Pulse Ox O2 Del Method 98.0 F 59 L 15 136/79 97 Room Air 05/17/24 11:04 05/17/24 11:04 05/17/24 11:04 05/17/24 11:04 05/17/24 11:04 05/17/24 11:04 Operation Date: 05/17/24 09:15 Proposed Procedures p Colonoscopy 33350, G0105, Z12.11, Z80.0(Not Applicable) - John Monte DO Familial anesthetic complications: None Was Beta Nishi taken within 24 hours: N/A Was Clonidine taken within 24 hours: N/A Last intake: Intake Last Liquid Date 05/16/24 Last Liquid Time 23:30 Last Solid Date 05/15/24 Last Solid Time 18:00 Social No alcohol and No tobacco Exam alert, oriented x 3, clear to auscultation bilaterally and regular rate & rhythm Airway Submandibular: within normal limits Cervical ROM: within normal limits Mallampati: Class II Dentition: false History/ROS No significant history except as noted and No significant complaints Pulmonary None reported CV/HEM None reported Orthostatic hypotension, 1L in ER. Labs normal None reported Hepatic None reported GI None reported Metabolic Hyperlipidemia [facility] [place] Lower Back Pain and Osteoarthritis/DJD Neuropsych Intellectual disability/schizoaffective disorder Anesthetic Plan ASA status: 3 Anesthesia: Anesthesia Evaluation, General and MAC Risk of > 500 ml blood loss (7ml/kg in children): No Medications/Allergies Home Medications Medication Instructions Recorded Confirmed Last Taken Type cholecalciferol (vitamin D3) 125 5,000 unit PO DAILY 11/07/19 05/15/24 05/15/24 History mcg (5,000 unit) capsule escitalopram oxalate 10 mg tablet 10 mg PO DAILY #30 tabs 01/20/24 05/15/24 05/15/24 Rx (Lexapro) paliperidone palmitate 117 mg/0.75 117 mg (0.75 mL) IM Q30D #0.75 mL 01/24/24 05/15/24 05/15/24 Rx mL intramuscular syringe docusate sodium 100 mg capsule 100 mg PO DAILY #30 caps 03/14/24 05/15/24 Unknown Rx loratadine 10 mg tablet (Claritin) 10 mg PO DAILY #30 tabs 03/14/24 05/15/24 05/15/24 Rx pantoprazole 40 mg tablet,delayed 40 mg PO DAILY gastritis #30 tabs 03/14/24 05/15/24 05/15/24 Rx release (Protonix) simvastatin 20 mg tablet 20 mg PO BEDTIME #30 tabs 03/14/24 05/15/24 05/15/24 Rx sucralfate 1 gram tablet (Carafate) 1 g PO .4 times day #120 tabs 03/14/24 05/15/24 05/15/24 Rx Allergies Allergy/AdvReac Type Severity Reaction Status Date / Time No Known Allergies Allergy Verified 05/15/24 09:31 Current Medications Generic Name Dose Route Start Last Admin Trade Name Orionq PRN Reason Stop Dose Admin Sodium Chloride 1,000 mls @ 30 mls/hr 05/17/24 08:15 05/17/24 11:15 Sodium Chloride 0.9% IV 05/18/24 08:14 30 mls/hr .Q24H FAWAD Administration PFSH Anesthesia Medical History Family history of colon cancer Psychiatric care Gastritis, unspecified, with bleeding Intellectual disability Schizoaffective disorder History of seizures as a child Allergic rhinitis, unspecified Dyslipidemia Vitamin D insufficiency GERD without esophagitis History of DVT (deep vein thrombosis) Surgical History History of endoscopy 2012 Gastric bleed Family History Father Cancer Colon Cancer Social History Smoking and tobacco/nicotine status: never used tobacco/nicotine Second hand smoke exposure: No Alcohol intake: never Substance/Drug Use: never Caregiver/support person: Yes (sister) Lives independently: No Household members: family Housing: House Marital status: Single Highest education level completed: High School Graduate service: No Current occupational status: disabled Pets and animals: Yes Do you think of yourself as: Straight/Heterosexual Current gender identity: Male Data Anesthesia Cardiac Studies: No Data to Display
[2024-05-17 13:14] VITALS: BP 96/67; PULSE 66; RESP 18; TEMP 36.4; O2SAT 95
[2024-05-17 13:29] VITALS: BP 137/94; PULSE 58; RESP 18; O2SAT 97
--- NOTE | 2024-05-17 13:45 | ANE.PACU2 ---
Inpatient post-anesthesia follow up: Airway intact: Yes Vital signs: Temperature 97.6 F Pulse Rate 58 Respiratory Rate 18 Blood Pressure 137/94 Pulse Oximetry 97 Oxygen Delivery Me thod Room Air Oxygen Flow Rate Fraction of Inspir ed Oxygen Hydration adequate: Yes Nausea and vomiting: No Pain level: 1 Mental status: Baseline
== END 2024-05-17 13:45 | disposition home or self-care (01) ==
PROVIDERS: PCP Nurse Practitioner; Visit Provider Surgery
PROC: 0DJD8ZZ Inspection of Lower Intestinal Tract, Via Natural or Artificial Opening Endoscopic (ICD-10-PCS; CPT 45378; principal; 2024-05-17 09:15)
DX: Z12.11 Encounter for screening for malignant neoplasm of colon (principal); Z80.0 Family history of malignant neoplasm of digestive organs; K62.1 Rectal polyp; E78.5 Hyperlipidemia, unspecified; K21.9 Gastro-esophageal reflux disease without esophagitis; Z86.718 Personal history of other venous thrombosis and embolism
CPT/HCPCS: 45385; 88305; J2704; J7030

== ENCOUNTER 2024-05-17 08:20 | Emergency (ER) | payer MEDICARE, SELFPAY ==
[2024-05-17 08:44] VITALS: BP 123/86; PULSE 68; RESP 16; O2SAT 98
--- NOTE | 2024-05-17 08:48 | ECG_ITS ---
[facility] Test Date: 2024-05-17 Pat Name: López Eckert Department: Room: Gender: Male Record Cutter: : 1960 Requested By: Kuldeep Garza Order Number: [id number] Therese MD: Yan Cifuentes M.D. Measurements Intervals [place] Rate: 66 P: 52 NC: 154 QRS: 40 QRSD: 92 T: 50 QT: 396 QTc: 415 Interpretive Statements SINUS RHYTHM NONSPECIFIC T-WAVE ABNORMALITY Compared to ECG 02/04/2018 10:42:07 No significant changes Electronically Signed On 05-17-2024 16:39:53 CDT by Yan Cifuentes M.D. [email or web address]
--- NOTE | 2024-05-17 08:48 | ED_ITS ---
HPI - General Adult 2 General: Chief complaint: Fall Stated complaint: Fall Time Seen by Provider: 05/17/24 08:44 Source: patient Mode of arrival: ambulatory History of Present Illness: 64-year-old who presents to the emergenc y room with complaints of nearly passing out. Patient has a history of schizophrenia and intellectual disability who underwent prep last night for colonoscopy. He went to register for the colonoscopy today while he was standing and became lightheaded dizzy and slid to the floor he did not actually fall. There was no loss conscious he did not strike his head he denies any pain or injury at this time he is awake and alert at his baseline he is accompanied by 2 family members. He denies chest pain. He does relate he has a little abdominal cramping secondary to the prep Onset (ago): minute(s) Associated symptoms: Deny chest pain, confusion, cough, diaphoresis, decreased appetite, dyspnea, fevers/chills, headache(s), malaise, nausea, rash, palpitations, seizures, short of breath, syncope, vomiting or weakness Review of Systems 2 Const: Denies: malaise or diaphoresis Card: Denies: chest pain, palpitations or syncope Resp: Denies: dyspnea GI: Denies: nausea or vomiting : Denies: dysuria, urinary frequency or urinary urgency Musc: Denies: neck pain or back pain Skin/Breast: Denies: rash Neuro: Denies: headache(s) or confusion PFSH ED 2 PFSH: Medical History Family history of colon cancer Psychiatric care Gastritis, unspecified, with bleeding Intellectual disability Schizoaffective disorder History of seizures as a child Allergic rhinitis, unspecified Dyslipidemia Vitamin D insufficiency GERD without esophagitis History of DVT (deep vein thrombosis) Surgical History History of endoscopy 2012 Gastric bleed Family History Father Cancer Colon Cancer Social History Smoking and tobacco/nicotine status: never used tobacco/nicotine Second hand smoke exposure: No Alcohol intake: never Substance/Drug Use: never Caregiver/support person: Yes (sister) Lives independently: No Household members: family Housing: House Marital status: Single Highest education level completed: High School Graduate service: No Current occupational status: disabled Pets and animals: Yes Do you think of yourself as: Straight/Heterosexual Current gender identity: Male Physical Exam 2 Const: GENERAL APPEARANCE: cooperative and comfortable O RIENTATION/CONSCIOUSNESS: Yes awake HENMT: COMMON NORMALS: normocephalic, atraumatic and hearing grossly normal bilaterally HEAD & SCALP: normocephalic and atraumatic Resp: COMMON NORMALS: normal respiratory effort, No retractions, No use of accessory muscles and clear to auscultation bilaterally AUSCULTATION: clear to auscultation bilaterally Cardio: COMMON NORMALS: regular rate, regular rhythm and No murmurs present (Cardio) RATE: regular rate RHYTHM: regular rhythm GI: COMMON NORMALS: No hepatosplenomegaly present AUSCULTATION: Yes normoactive bowel sounds PALPATION: Yes Tenderness to palpation present (GI) (Diffuse), No Guarding due to palpation present (GI) and Yes No hepatosplenomegaly present Extremity: COMMON NORMALS: normal to inspection, capillary refill normal, no clubbing, cyanosis or edema, no calf tenderness and no pedal edema Skin: COMMON NORMALS: no rashes or lesions noted GENERAL SKIN EXAM: no rashes or lesions noted Course 2 Vital Signs: Vital signs: Vital Signs Temperature 97.3 F L 05/17/24 08:52 Pulse Rate 62 05/17/24 10:57 Respiratory Rate 16 05/17/24 08:44 Blood Pressure 125/80 05/17/24 10:57 Pulse Oximetry 98 05/17/24 10:57 Oxygen Delivery Me thod Room Air 05/17/24 08:44 MDM - General Adult Medical Decision Making Patient had a hypotensive episode after presenting to surgery for his colonoscopy he did the prep the night before. He is given fluids he feels much better his vital signs are good his labs show slight anion gap and hypokalemia which I think is due to to his prep for surgery the hypokalemia is very mild should not prevent proceeding with the procedure patient discharged from the emergency room after receiving fluids will be brought back to GI so he can complete his testing. Medical Records I reviewed the patient's medical records. Lab Data I reviewed the patient's lab results. 05/17/24 09:04 05/17/24 09:04 Laboratory Results WBC 7.11 10^3/uL (3.29-11.43) 05/17/24 09:04 RBC 5.32 10^6/uL (3.85-5.65) 05/17/24 09:04 Hgb 16.00 g/dL (11.27-16.99) 05/17/24 09:04 Hct 45.3 % (37-53) 05/17/24 09:04 MCV 85.2 fl (82-101) 05/17/24 09:04 MCH 30.1 pg (27-33) 05/17/24 09:04 MCHC 35.3 g/dL (30-55) 05/17/24 09:04 RDW 13.5 % (12.1-15.1) 05/17/24 09:04 Plt Count 299 10^3/cmm (157-399) 05/17/24 09:04 MPV 9.7 fL (7.4-10.4) 05/17/24 09:04 Neut % (Auto) 81.9 % 05/17/24 09:04 Lymph % (Auto) 11.1 % 05/17/24 09:04 [place] % (Auto) 5.5 % 05/17/24 09:04 Eos % (Auto) 0.6 % 05/17/24 09:04 Baso % (Auto) 0.6 % 05/17/24 09:04 Neut # (Auto) 5.83 10^3/uL (1.8-7.7) 05/17/24 09:04 Lymph # (Auto) 0.8 10^3/uL (0.8-4.8) 05/17/24 09:04 [place] # (Auto) 0.4 10^3/uL (0.2-0.9) 05/17/24 09:04 Eos # (Auto) 0.0 10^3/uL (0.0-0.8) 05/17/24 09:04 Baso # (Auto) 0.0 10^3/uL (0.0-0.1) 05/17/24 09:04 Nucleated RBC % (auto) 0 % 05/17/24 09:04 Nucleated RBCs # 0.0 /100WBC 05/17/24 09:04 Sodium 141 mmol/L (136-145) 05/17/24 09:04 Potassium 3.4 mmol/L (3.5-5.1) L 05/17/24 09:04 Chloride 99 mmol/L (98-107) 05/17/24 09:04 Carbon Dioxide 26 mmol/L (22-29) 05/17/24 09:04 Anion Gap 19.4 (5-19) H 05/17/24 09:04 BUN 13 mg/dL (8-23) 05/17/24 09:04 Creatinine 1.2 mg/dL (0.7-1.2) 05/17/24 09:04 GFR Calculation 61.0 mL/min (90-130) L 05/17/24 09:04 Glucose 138 mg/dL (65-115) H 05/17/24 09:04 POC Glucose 137 mg/dL (70-110) H 05/17/24 08:49 Calculated Osmolality 294 mOsm/kg (285-295) 05/17/24 09:04 Calcium 9.4 mg/dL (8.5-10.5) 05/17/24 09:04 Total Bilirubin 0.6 mg/dL (0.15-1.2) 05/17/24 09:04 AST 12 U/L (0-40) 05/17/24 09:04 ALT 10 U/L (0-41) 05/17/24 09:04 Alkaline Phosphatase 84 U/L (40-130) 05/17/24 09:04 Total Protein 8.0 g/dL (6.6-8.7) 05/17/24 09:04 Albumin 4.2 g/dL (3.5-5.2) 05/17/24 09:04 Globulin 3.8 g/dL (1.3-4.6) 05/17/24 09:04 Urine Color Yellow (Yellow) 05/17/24 10:04 Urine Appearance Clear (CLEAR) 05/17/24 10:04 Urine pH 5 (5-7) 05/17/24 10:04 Ur Specific [place] 1.025 (1.005-1.030) 05/17/24 10:04 Urine Protein 2+ (Negative) H 05/17/24 10:04 Urine Glucose (UA) Norm (Normal) 05/17/24 10:04 Urine Ketones 1+ (Negative) H 05/17/24 10:04 Urine Blood Neg (Negative) 05/17/24 10:04 Urine Nitrate Negative (Negative) 05/17/24 10:04 Urine Bilirubin 1+ (Negative) H 05/17/24 10:04 Urine Urobilinogen 1 mg/dL (Negative) H 05/17/24 10:04 Ur Leukocyte Esterase Negative (Negative) 05/17/24 10:04 Urine RBC None /hpf (0-2) 05/17/24 10:04 Urine WBC None /hpf (0-5) 05/17/24 10:04 Ur Squamous Epith Cells 0-4 /hpf (0-5) H 05/17/24 10:04 Amorphous Sediment Not Reportable 05/17/24 10:04 Urine Bacteria 1+ /hpf (NONE) H 05/17/24 10:04 Hyaline Casts 0-4 /lpf H 05/17/24 10:04 No radiology studies performed this visit Discharge Plan Discharge Patient Disposition: Home Clinical Impression: Orthostasis Condition: Stable Prescriptions: No Action cholecalciferol (vitamin D3) 5,000 unit capsule 5,000 unit PO DAILY Lexapro 10 mg tablet 10 mg PO DAILY Qty: 30 5RF Rx Instructions: Take one tablet by mouth every morning paliperidone palmitate 117 mg/0.75 mL syringe 117 mg IM Q30D Qty: 0.75 3RF Rx Instructions: Beginning 02/04/24: One injection IM every 30 days; stop Risperidal Consta docusate sodium 100 mg capsule 100 mg PO DAILY Qty: 30 5RF loratadine [Claritin] 10 mg tablet 10 mg PO DAILY Qty: 30 5RF pantoprazole [Protonix] 40 mg tablet,delayed release (DR/EC) 40 mg PO DAILY Qty: 30 5RF simvastatin 20 mg tablet 20 mg PO BEDTIME Qty: 30 5RF sucralfate [Carafate] 1 gram tablet 1 g PO .4 times day Qty: 120 5RF Rx Instructions: 15 minutes before meal and at bedtime Discharge Orders: Discharge ED (Routine); Ordered 05/17/24 Ordered By: Kuldeep Romero Referrals: Meron Robles, [employer]INE[employer]NAGER[employer] [Primary Care Provider] - Patient Instructions: Opioid Safety, Pain Management Activity Restrictions/Additional Instructions: [facility] you [facility] [place] [facility] healthcare needs today. It is very important that you follow up as instructed or that you return to the Emergency Department should you have concerns or if your condition changes or worsens in any way. You were seen in the emergency room after an near syncopal episode at the GI lab. Suspect that your symptoms were caused by fluid depletion created by the preparation for the colonoscopy. The labs did not show significant abnormality in the emergency room. He will be discharged from the ER and brought back to GI to complete your endoscopy as planned Coding Level of Care Code ED Sap Hana Architect for Brenda Richey
[2024-05-17 08:52] VITALS: TEMP 36.3
[2024-05-17 08:54] LABS: Glucose Point of Care 137 mg/dL (70-110)
[2024-05-17 09:11] LABS: Basophils % 0.6 %; Eosinophils % 0.6 %; Hematocrit 45.3 % (37-53); Lymphocytes # 0.8 10^3/uL (0.8-4.8); Lymphocytes % 11.1 %; Mean Corpuscular HGB Conc 35.3 g/dL (30-55); Mean Corpuscular Hemoglobin 30.1 pg (27-33); Mean Corpuscular Volume 85.2 fl (82-101); Mean Platelet Volume 9.7 fL (7.4-10.4); Monocytes # 0.4 10^3/uL (0.2-0.9); Monocytes % 5.5 %; Neutrophils # 5.83 10^3/uL (1.8-7.7); Neutrophils % 81.9 %; Nucleated Red Blood Cells % 0 %; Platelet Count 299 10^3/cmm (157-399); Red Blood Count 5.32 10^6/uL (3.85-5.65); Red Cell Distribution Width 13.5 % (12.1-15.1); White Blood Count 7.11 10^3/uL (3.29-11.43)
[2024-05-17] MEDS: sodium chloride 0.9% 1,000 ML 999 ML IV (09:21)
[2024-05-17 09:23] VITALS: BP 127/80; PULSE 69; O2SAT 98
[2024-05-17 09:29] LABS: Alanine Aminotransferase 10 U/L (0-41); Albumin Level 4.2 g/dL (3.5-5.2); Alkaline Phosphatase 84 U/L (40-130); Anion Gap 19.4 (5-19); Aspartate Amino Transferase 12 U/L (0-40); Blood Urea Nitrogen 13 mg/dL (8-23); Calcium 9.4 mg/dL (8.5-10.5); Carbon Dioxide 26 mmol/L (22-29); Chloride 99 mmol/L (98-107); Creatinine Clr Calc Pharmacy 69.4605; Globulin 3.8 g/dL (1.3-4.6); Glucose 138 mg/dL (65-115); Osmolality Calculated 294 mOsm/kg (285-295); Potassium 3.4 mmol/L (3.5-5.1); Sodium 141 mmol/L (136-145); Total Bilirubin 0.6 mg/dL (0.15-1.2)
[2024-05-17 09:30] VITALS: BP 127/80; PULSE 69; O2SAT 98
[2024-05-17 10:08] VITALS: BP 133/87; PULSE 62; O2SAT 99
[2024-05-17 10:21] LABS: Add Urine Microscopic? YES; Bilirubin Urine 1+ (Negative); Blood Urine Neg (Negative); Glucose Urine UA Norm (Normal); Ketones Urine 1+ (Negative); Leukocyte Esterase Urine Negative (Negative); Nitrate Urine Negative (Negative); Protein Urine 2+ (Negative); Specific Gravity, Urine 1.025 (1.005-1.030); Urine Appearance Clear (CLEAR); Urine Color Yellow (Yellow); Urobilinogen Urine 1 mg/dL (Negative); pH Urine 5 (5-7)
[2024-05-17 10:22] LABS: Add Urine Culture? No; Bacteria Urine 1+ /hpf; Hyaline Casts Urine 0-4 /lpf; Squamous Epithelial Cell Urine 0-4 /hpf (0-5)
[2024-05-17 10:57] VITALS: BP 125/80; PULSE 62; O2SAT 98
== END 2024-05-17 10:44 | disposition home or self-care (01) ==
PROVIDERS: Emergency Provider Family Medicine; PCP Nurse Practitioner
DX: I95.1 Orthostatic hypotension (principal); E78.5 Hyperlipidemia, unspecified
CPT/HCPCS: 36416; 80053; 81001; 82962; 85025; 93005; 96360; 96361; 99284; J7030

== ENCOUNTER → 2024-06-19 14:52 | Outpatient (BNVA) | payer MEDICARE, SELFPAY | PROVIDERS: PCP Nurse Practitioner; Visit Provider Surgery | DX: Z09 Encounter for follow-up examination after completed treatment for conditions other than malignant neoplasm (principal); Z80.0 Family history of malignant neoplasm of digestive organs; K92.0 Hematemesis | CPT/HCPCS: 99214 ==

== ENCOUNTER 2024-06-21 10:25 | Day surgery (SDC) | payer MEDICARE, MEDICAID, SELFPAY ==
[2024-06-21 11:17] VITALS: BP 123/93; PULSE 65; RESP 18; TEMP 36.8; O2SAT 97
[2024-06-21] MEDS: sodium chloride 0.9% 1,000 ML 30 ML IV (11:34)
--- NOTE | 2024-06-21 13:36 | ANES.PREANE2 ---
Pre-Anesthetic Assessment Height/Weight: Height 6 ft Weight 170 lb Temp Pulse Resp BP Pulse Ox O2 Del Method 98.3 F 65 18 123/93 97 Room Air 06/21/24 11:17 06/21/24 11:17 06/21/24 11:17 06/21/24 11:17 06/21/24 11:17 06/21/24 11:17 Operation Date: 06/21/24 12:30 Proposed Procedures p EGD 21494, K92.0(Not Applicable) - John Monte DO Last intake: Intake Last Liquid Date 06/20/24 Last Liquid Time 22:30 Last Solid Date 06/20/24 Last Solid Time 22:30 Social No alcohol and No tobacco Exam alert oriented x1. sister at bedside answering all questions Airway Submandibular: within normal limits Cervical ROM: within normal limits Mallampati: Class II Dentition: false Anesthetic Plan ASA status: 2 Anesthesia: MAC Other: No prior issues with anesthesia Sister at bedside Patient has documented intellectual disability alert and oriented x 1 GERD Schizoaffective disorder Recent colonoscopy without issues EGD today to evaluate ulcer Plan for MAC anesthesia Medications/Allergies Home Medications Medication Instructions Recorded Confirmed Last Taken Type cholecalciferol (vitamin D3) 125 5,000 unit PO DAILY 11/07/19 06/20/24 06/20/24 History mcg (5,000 unit) capsule docusate sodium 100 mg capsule 100 mg PO DAILY #30 caps 03/14/24 06/20/24 06/20/24 Rx loratadine 10 mg tablet (Claritin) 10 mg PO DAILY #30 tabs 03/14/24 06/20/24 06/20/24 Rx simvastatin 20 mg tablet 20 mg PO BEDTIME #30 tabs 03/14/24 06/20/24 06/19/24 Rx sucralfate 1 gram tablet (Carafate) 1 g PO .4 times day #120 tabs 03/14/24 06/20/24 06/20/24 Rx escitalopram oxalate 10 mg tablet 10 mg PO DAILY #30 tabs 06/05/24 06/20/24 06/20/24 Rx (Lexapro) paliperidone palmitate 117 mg/0.75 117 mg (0.75 mL) IM Q30D #0.75 mL 06/05/24 06/20/24 06/15/24 Rx mL intramuscular syringe (Invega Sustenna) pantoprazole 40 mg tablet,delayed 40 mg PO BID gastritis 6 weeks #84 06/19/24 06/20/24 06/20/24 Rx release (Protonix) tabs Allergies Allergy/AdvReac Type Severity Reaction Status Date / Time No Known Allergies Allergy Verified 06/20/24 12:26 Current Medications Generic Name Dose Route Start Last Admin Trade Name Gricelda PRN Reason Stop Dose Admin Sodium Chloride 1,000 mls @ 30 mls/hr 06/21/24 11:15 06/21/24 11:34 Sodium Chloride 0.9% IV 06/22/24 11:14 30 mls/hr .Q24H FAWAD Administration PFSH Anesthesia Medical History (Updated 06/19/24 @ 16:03 by John Monte DO) Family history of colon cancer Psychiatric care Gastritis, unspecified, with bleeding Intellectual disability Schizoaffective disorder History of seizures as a child Allergic rhinitis, unspecified Dyslipidemia Vitamin D insufficiency GERD without esophagitis History of DVT (deep vein thrombosis) Surgical History History of endoscopy 2012 Gastric bleed Family History Father Cancer Colon Cancer Social History Smoking and tobacco/nicotine status: never used tobacco/nicotine Second hand smoke exposure: No Alcohol intake: never Substance/Drug Use: never Caregiver/support person: Yes (sister) Lives independently: No Household members: family Housing: House Marital status: Single Highest education level completed: High School Graduate service: No Current occupational status: disabled Pets and animals: Yes Do you think of yourself as: Straight/Heterosexual Current gender identity: Male Data Anesthesia Cardiac Studies: No Data to Display
--- NOTE | 2024-06-21 13:51 | W.PM.OPSUD ---
Surgery/Procedure H&P Update DATE OF PROCEDURE: June 21, 2024 DATE H&P PERFORMED: 06/19/24 H&P UPDATE INFORMATION: I have reviewed H&P completed within last 30 days, I have examined patient prior to procedure and No changes to prior documentation PLANNED PROCEDURE: Operation Date: 06/21/24 12:30 Proposed Procedures p EGD 34081, K92.0(Not Applicable) - John Monte,
[2024-06-21 14:07] VITALS: BP 114/81; PULSE 77; RESP 18; TEMP 36.7; O2SAT 92
[2024-06-21 14:17] VITALS: BP 120/80; PULSE 68; RESP 18; O2SAT 97
[2024-06-21 14:29] VITALS: BP 133/88; PULSE 58; RESP 18; O2SAT 94
--- NOTE | 2024-06-21 14:50 | ANE.PACU2 ---
Inpatient post-anesthesia follow up: Airway intact: Yes Vital signs: Temperature 98.0 F Pulse Rate 58 Respiratory Rate 18 Blood Pressure 133/88 Pulse Oximetry 94 Oxygen Delivery Me thod Room Air Oxygen Flow Rate Fraction of Inspir ed Oxygen Hydration adequate: Yes Nausea and vomiting: No Pain level: 1 Mental status: Baseline
== END 2024-06-21 14:53 | disposition home or self-care (01) ==
PROVIDERS: PCP Nurse Practitioner; Visit Provider Surgery
PROC: 0DJ08ZZ Inspection of Upper Intestinal Tract, Via Natural or Artificial Opening Endoscopic (ICD-10-PCS; CPT 43235; principal; 2024-06-21 12:30)
DX: K92.0 Hematemesis (principal); Z80.0 Family history of malignant neoplasm of digestive organs; E78.5 Hyperlipidemia, unspecified; Z86.718 Personal history of other venous thrombosis and embolism; K44.9 Diaphragmatic hernia without obstruction or gangrene; K21.00 Gastro-esophageal reflux disease with esophagitis, without bleeding
CPT/HCPCS: 43239; 88305; 88342; J2704; J7030

== ENCOUNTER → 2024-07-13 14:44 | Outpatient (BNVA) | payer MEDICARE, MEDICAID, SELFPAY | PROVIDERS: PCP Nurse Practitioner; Visit Provider Surgery | DX: Z09 Encounter for follow-up examination after completed treatment for conditions other than malignant neoplasm (principal); K29.70 Gastritis, unspecified, without bleeding; K21.00 Gastro-esophageal reflux disease with esophagitis, without bleeding; K44.9 Diaphragmatic hernia without obstruction or gangrene | CPT/HCPCS: 99214 ==

== ENCOUNTER 2024-08-02 16:25 | Inpatient (IN) | payer MEDICARE, MEDICAID, SELFPAY ==
--- NOTE | 2024-08-02 16:36 | ECG_ITS ---
[facility] Test Date: 2024-08-02 Pat Name: López Eckert Department: Room: Gender: Male [employer]: : 1960 Requested By: Brandi Garza Order Number: [id number] Saleh MD: Lonnie De Jesus M.D. Measurements Intervals [place] Rate: 86 P: 0 IN: 0 QRS: 37 QRSD: 98 T: 75 QT: 348 QTc: 418 Interpretive Statements ATRIAL FIBRILLATION NONSPECIFIC T-WAVE ABNORMALITY ABNORMAL RHYTHM ECG INTERPRETATION BASED ON A DEFAULT AGE OF 40 YEARS Compared to ECG 05/17/2024 09:27:31 Sinus rhythm no longer present T-wave abnormality still present Electronically Signed On 08-02-2024 23:28:14 CDT by Lonnie De Jesus M.D. [id number]
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
[2024-08-02 17:11] VITALS: BP 129/93; PULSE 76; RESP 20; TEMP 36.8; O2SAT 99; BMI 23.7
--- NOTE | 2024-08-02 17:29 | PC.NURSE ---
96 hour hold rights read and reviewed with patient. Patient verbalized understandings. Copy of rights given to patient.
[2024-08-02 17:57] LABS: Basophils % 0.4 %; Eosinophils % 0.1 %; Hematocrit 42.4 % (37-53); Lymphocytes # 0.6 10^3/uL (0.8-4.8); Lymphocytes % 6.3 %; Mean Corpuscular HGB Conc 34.7 g/dL (30-55); Mean Corpuscular Volume 86.5 fl (82-101); Mean Platelet Volume 9.9 fL (7.4-10.4); Monocytes # 0.5 10^3/uL (0.2-0.9); Neutrophils # 8.08 10^3/uL (1.8-7.7); Neutrophils % 87.8 %; Nucleated Red Blood Cells % 0 %; Platelet Count 251 10^3/cmm (157-399); Red Cell Distribution Width 13.6 % (12.1-15.1); White Blood Count 9.21 10^3/uL (3.29-11.43)
[2024-08-02 18:21] LABS: Acetaminophen < 5.0 ug/mL (10-30); Alanine Aminotransferase 10 U/L (0-41); Alcohol Level 20 mg/dL (0-10); Alkaline Phosphatase 69 U/L (40-130); Anion Gap 17.4 (5-19); Aspartate Amino Transferase 13 U/L (0-40); Blood Urea Nitrogen 16 mg/dL (8-23); Calcium 8.7 mg/dL (8.5-10.5); Carbon Dioxide 21 mmol/L (22-29); Chloride 107 mmol/L (98-107); Globulin 3.1 g/dL (1.3-4.6); Glomerular Filtration Rate 75.2 mL/min (90-130); Glucose 127 mg/dL (65-115); Osmolality Calculated 297 mOsm/kg (285-295); Potassium 3.4 mmol/L (3.5-5.1); Salicylate < 0.3 mg/dL (3-10); Sodium 142 mmol/L (136-145); Thyroid Stimulating Hormone 1.16 uIU/mL (0.27-4.20); Total Bilirubin 0.4 mg/dL (0.15-1.2); Total Protein 7.1 g/dL (6.6-8.7)
[2024-08-02 18:46] LABS: Bilirubin Urine Negative (Negative); Blood Urine Negative (Negative); Glucose Urine UA Negative (Normal); Ketones Urine Negative (Negative); Leukocyte Esterase Urine Negative (Negative); Nitrate Urine Negative (Negative); Protein Urine 1+ (Negative); Specific Gravity, Urine 1.021 (1.005-1.030); Urine Appearance Clear (CLEAR); Urine Color Yellow (Yellow); pH Urine 5.5 (5-7)
[2024-08-02 18:52] LABS: Amphetamines Screen Urine Negative (Negative); Barbiturates Screen Urine Negative (Negative); Benzodiazepines Screen Urine Negative (Negative); Cocaine Screen Urine Negative (Negative); Opiate Screen Urine Negative (Negative); PCP Screen Urine Negative (Negative); THC Screen Urine Negative (Negative)
[2024-08-02 19:06] LABS: Add Urine Culture? No; Bacteria Urine TRACE /hpf; Hyaline Casts Urine 15-25 /lpf; Mucus Urine 1+ /hpf; Oval Fat Bodies Urine RARE /hpf; RBC Urine 0-4 /hpf (0-2); Squamous Epithelial Cell Urine 0-4 /hpf (0-5); WBC Urine 0-4 /hpf (0-5)
[2024-08-02 19:16] VITALS: BP 124/89; RESP 18; O2SAT 98
[2024-08-02 19:48] VITALS: BP 124/89; PULSE 84; O2SAT 98
[2024-08-02 20:06] VITALS: BP 129/91; PULSE 70; RESP 18; TEMP 36.9; O2SAT 100
[2024-08-02 20:08] VITALS: BP 129/91; PULSE 70; RESP 18; TEMP 36.9; O2SAT 100
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
[2024-08-03] MEDS: neomycin-poly-bacitracin oint 28 gm 1 APPLIC TOPICAL (06:27)
[2024-08-03] MEDS: docusate sodium 100 mg Capsule PO (10:17)
[2024-08-03] MEDS: pantoprazole DR 40 mg Tablet PO ×2 (10:17→18:08)
[2024-08-03] MEDS: cholecalciferol (vitamin D3) 5,000 unit Tablet 5000 UNIT PO (10:17)
[2024-08-03] MEDS: escitalopram 10 mg Tablet PO (10:17)
[2024-08-03] MEDS: loratadine 10 mg Tablet PO (10:18)
[2024-08-03 14:00] VITALS: BP 106/71; PULSE 63; RESP 18; TEMP 37.1; O2SAT 99
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
[2024-08-03 20:44] VITALS: BP 116/76; PULSE 68; RESP 18; TEMP 36.7; O2SAT 99
[2024-08-03] MEDS: atorvastatin 40 mg Tablet 20 MG PO (21:16)
[2024-08-04 04:30] VITALS: BP 117/84; PULSE 92; RESP 18; TEMP 36.5; O2SAT 97
[2024-08-04] MEDS: loratadine 10 mg Tablet PO (08:44)
[2024-08-04] MEDS: escitalopram 10 mg Tablet PO (08:44)
[2024-08-04] MEDS: docusate sodium 100 mg Capsule PO (08:44)
[2024-08-04] MEDS: cholecalciferol (vitamin D3) 5,000 unit Tablet 5000 UNIT PO (08:44)
[2024-08-04] MEDS: pantoprazole DR 40 mg Tablet PO ×2 (08:44→18:05)
[2024-08-04] MEDS: acetaminophen 325 mg Tablet 650 MG PO (08:45)
--- NOTE | 2024-08-04 08:50 | PC.NURSE ---
Patient playing chess in the dayroom with another patient. Denies avh and si/hi. Per analytical research chemist report and patient himself, he did not sleep last night. Patient states this is normal for him. He endorses pain in his lower back.
[2024-08-04 14:00] VITALS: BP 123/83; PULSE 84; RESP 16; TEMP 36.8; O2SAT 99
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
[2024-08-04 20:59] VITALS: BP 129/86; PULSE 94; RESP 18; TEMP 37.2; O2SAT 98
[2024-08-04] MEDS: atorvastatin 40 mg Tablet 20 MG PO (21:38)
[2024-08-04] MEDS: hyDROXYzine 25 mg Capsule 50 MG PO (21:38)
[2024-08-04] MEDS: trazodone 50 mg Tablet PO (21:38)
[2024-08-05 06:00] VITALS: BP 98/58; PULSE 89; RESP 17; TEMP 36.6; O2SAT 96
--- NOTE | 2024-08-05 09:44 | P.NPUPN_ITS ---
Subjective NPU 2 Subjective: Patient presented today reporting that he is doing okay. He reports that his family is likely where he will return and that he has been in contact with his sister. He reports that he is doing okay with the adjustments to be made he denied any side effects to his medications. Mental Status Exam 2 MSE Comments: This is a slender white male in hospital scrubs with minimal grooming and eye contact. No abnormal movements except for mild psychomotor retardation. Somewhat cooperative with exam and mild distress. Speech was limited and decreased rate and volume. Mood described as okay affect odd. Thought process linear. Thought content: Patient denied suicidal homicidal ideation, there were no delusions reported but he appeared guarded, he denied any auditory or visual hallucinations. Attention and concentration was intact and memory appeared mostly reliable but none were formally tested. He is alert and oriented to person and place. Insight, judgment and impulse control are limited versus impaired. Vitals/I&O/Wt Last Vital Signs Temp 97.9 F 08/05/24 06:00 Pulse 89 08/05/24 06:00 Resp 17 08/05/24 06:00 BP 98/58 08/05/24 06:00 Pulse Ox 96 08/05/24 06:00 O2 Del Method Room Air 08/04/24 14:00 Data NPU 08/02/24 17:36 08/02/24 17:36 A&P Assessment and plan (1) Schizoaffective disorder: Qualifiers: Schizoaffective disorder type: unspecified Qualified Code(s): F25.9 - Schizoaffective disorder, unspecified Plan 64-year-old male with significant history of cognitive impairment and a reported history of schizoaffective disorder with psychotic symptoms admitted due to increased aggression. Patient may require some adjustment in his medications. He had last received his treatment for psychotic symptoms approximately 25 days ago with the paliperidone at 117 mg. It is likely that this medication may require increase at this time. 1. Continue current medication except increase Invega Sustenna to 156 mg IM. Will give 1 week of Invega 6 mg oral. 2. Continue every 15 minute checks for safety. 3. Encourage individual, group and milieu therapy. 4. Obtain collateral information. 5. Will return to guardian once stabilized. Involuntary Hold Information 2 96 Hour Hold: 96 Hour Involuntary Admission: Yes Attestations NPU 2 Medical Necessity Statement*: Inpatient hospitalization is medically necessary and deemed to ?be ?the clinically appropriate intervention ?at this time.? We will monitor/initiate medications and make changes as indicated.?? The patient?s likely length of stay 4-6 days. Coding Level of Care Code Acute Code for Chg Fwd Diagnoses Schizoaffective disorder F25.9 Schizoaffective disorder type: unspecified
[2024-08-05] MEDS: escitalopram 10 mg Tablet PO (09:54)
[2024-08-05] MEDS: pantoprazole DR 40 mg Tablet PO ×2 (09:54→17:47)
[2024-08-05] MEDS: cholecalciferol (vitamin D3) 5,000 unit Tablet 5000 UNIT PO (09:54)
[2024-08-05] MEDS: loratadine 10 mg Tablet PO (09:54)
[2024-08-05] MEDS: docusate sodium 100 mg Capsule PO (09:54)
[2024-08-05 14:00] VITALS: BP 129/81; PULSE 70; RESP 16; TEMP 36.5; O2SAT 99
[2024-08-05] MEDS: paliperidone ER 6 mg Tablet PO (14:31)
[2024-08-05] MEDS: paliperidone palmitate 156 mg Syringe IM (16:28)
--- NOTE | 2024-08-05 18:14 | PC.NURSE ---
Shift Note Patient alert and oriented to all by the year. When asked what year it was, patient scoffed and just smiled. Patient spent most of the day in the day room sleeping in a chair. When approached by staff patient will smile and follow directions. Will answer questions when asked. Compliant with medication and denies SI/HI/AVH.
[2024-08-05] MEDS: atorvastatin 40 mg Tablet 20 MG PO (20:20)
[2024-08-05 21:07] VITALS: BP 115/72; PULSE 100; RESP 18; TEMP 36.6; O2SAT 98
[2024-08-06 06:00] VITALS: BP 114/74; PULSE 75; RESP 16; TEMP 36.8; O2SAT 94
[2024-08-06] MEDS: paliperidone ER 6 mg Tablet PO (10:02)
[2024-08-06] MEDS: pantoprazole DR 40 mg Tablet PO ×2 (10:02→17:24)
[2024-08-06] MEDS: loratadine 10 mg Tablet PO (10:02)
[2024-08-06] MEDS: cholecalciferol (vitamin D3) 5,000 unit Tablet 5000 UNIT PO (10:02)
[2024-08-06] MEDS: docusate sodium 100 mg Capsule PO (10:03)
[2024-08-06] MEDS: escitalopram 10 mg Tablet PO (10:03)
[2024-08-06] MEDS: ibuprofen 600 mg Tablet PO (10:13)
[2024-08-06 14:00] VITALS: BP 112/77; PULSE 88; RESP 16; TEMP 36.7; O2SAT 100
--- NOTE | 2024-08-06 18:41 | P.NPUPN_ITS ---
Subjective NPU 2 Subjective: Patient presented today reporting that things are going okay. He continues to be in communication with his family. Staff report that he is being less isolative and he is taking his medication as prescribed. He denies any side effects to the medication. Mental Status Exam 2 MSE Comments: This is a slender white male in hospital scrubs with minimal grooming and eye contact. No abnormal movements except for mild psychomotor retardation. Somewhat cooperative with exam and mild distress. Speech was limited and decreased rate and volume. Mood described as okay affect odd. Thought process linear. Thought content: Patient denied suicidal homicidal ideation, there were no delusions reported but he appeared guarded, he denied any auditory or visual hallucinations. Attention and concentration was intact and memory appeared mostly reliable but none were formally tested. He is alert and oriented to person and place. Insight, judgment and impulse control are limited versus impaired. Vitals/I&O/Wt Last Vital Signs Temp 98.1 F 08/06/24 14:00 Pulse 88 08/06/24 14:00 Resp 16 08/06/24 14:00 BP 112/77 08/06/24 14:00 Pulse Ox 100 08/06/24 14:00 O2 Del Method Room Air 08/06/24 14:00 Weight last 48 hrs Weight 77.111 kg Data NPU 08/02/24 17:36 08/02/24 17:36 A&P Assessment and plan (1) Schizoaffective disorder: Qualifiers: Schizoaffective disorder type: unspecified Qualified Code(s): F25.9 - Schizoaffective disorder, unspecified Plan 64-year-old male with significant history of cognitive impairment and a reported history of schizoaffective disorder with psychotic symptoms admitted due to increased aggression. Patient may require some adjustment in his medications. He had last received his treatment for psychotic symptoms approximately 25 days ago with the paliperidone at 117 mg. It is likely that this medication may require increase at this time. 1. Continue current medication except increase Invega Sustenna to 156 mg IM. Will give 1 week of Invega 6 mg oral. 2. Continue every 15 minute checks for safety. 3. Encourage individual, group and milieu therapy. 4. Obtain collateral information. 5. Will return to guardian once stabilized. Involuntary Hold Information 2 96 Hour Hold: 96 Hour Involuntary Admission: Yes Attestations NPU 2 Medical Necessity Statement*: Inpatient hospitalization is medically necessary and deemed to ?be ?the clinically appropriate intervention ?at this time.? We will monitor/initiate medications and make changes as indicated.?? The patient?s likely length of stay 3-5 days. Coding Level of Care Code Acute Code for [facility] Fwd Diagnoses Schizoaffective disorder F25.9 Schizoaffective disorder type: unspecified
[2024-08-06 20:16] VITALS: BP 135/86; PULSE 83; RESP 18; TEMP 37; O2SAT 100
[2024-08-06] MEDS: atorvastatin 40 mg Tablet 20 MG PO (20:38)
[2024-08-07 06:00] VITALS: BP 106/64; PULSE 74; RESP 17; TEMP 37.2; O2SAT 93
[2024-08-07] MEDS: escitalopram 10 mg Tablet PO (09:06)
[2024-08-07] MEDS: cholecalciferol (vitamin D3) 5,000 unit Tablet 5000 UNIT PO (09:07)
[2024-08-07] MEDS: loratadine 10 mg Tablet PO (09:07)
[2024-08-07] MEDS: paliperidone ER 6 mg Tablet PO (09:07)
[2024-08-07] MEDS: pantoprazole DR 40 mg Tablet PO ×2 (09:07→17:36)
[2024-08-07] MEDS: docusate sodium 100 mg Capsule PO (09:07)
[2024-08-07 14:00] VITALS: BP 145/90; PULSE 82; RESP 18; TEMP 36.8; O2SAT 99
--- NOTE | 2024-08-07 18:41 | W.PM.NPUPNS ---
Subjective NPU Subjective: Patient presented today reporting that he is doing fine. He reports that he continues to communicate with his family and they are discussing discharge sooner than later. He did get the Invega injection at previous dose to the 156 mg and denied any problems with that. He denied any side effects of the medication including the oral Invega that is being given for the next few days. He denies any other issues. Mental Status Exam MSE Comments: This is a slender white male in hospital scrubs with minimal grooming and eye contact. No abnormal movements except for mild psychomotor retardation. Mostly cooperative with exam in mild distress. Speech was limited with more normal rate and volume. Mood described as okay affect odd. Thought process linear. Thought content: Patient denied suicidal homicidal ideation, there were no delusions reported and he appeared less guarded, he denied any auditory or visual hallucinations. Attention and concentration was intact and memory appeared mostly reliable but none were formally tested. He is alert and oriented to person and place. Insight, judgment and impulse control are limited versus impaired. Vitals/I&O/Wt Last Vital Signs Temp 98.3 F 08/07/24 14:00 Pulse 82 08/07/24 14:00 Resp 18 08/07/24 14:00 BP 145/90 08/07/24 14:00 Pulse Ox 99 08/07/24 14:00 O2 Del Method Room Air 08/06/24 14:00 Weight last 48 hrs Weight 77.111 kg Data NPU 08/02/24 17:36 08/02/24 17:36 A&P Assessment and plan (1) Schizoaffective disorder: Qualifiers: Schizoaffective disorder type: unspecified Qualified Code(s): F25.9 - Schizoaffective disorder, unspecified Plan 64-year-old male with significant history of cognitive impairment and a reported history of schizoaffective disorder with psychotic symptoms admitted due to increased aggression. Patient may require some adjustment in his medications. He had last received his treatment for psychotic symptoms approximately 25 days ago with the paliperidone at 117 mg. It is likely that this medication may require increase at this time. 1. Continue current medication except increase Invega Sustenna to 156 mg IM. Injection given. Will give 1 week of Invega 6 mg oral. Four more oral doses remain 2. Continue every 15 minute checks for safety. 3. Encourage individual, group and milieu therapy. 4. Obtain collateral information. 5. Will return to guardian once stabilized. Involuntary Hold Information 96 Hour Hold: 96 Hour Involuntary Admission: Yes Attestations NPU Medical Necessity Statement*: Inpatient hospitalization is medically necessary and deemed to ?be ?the clinically appropriate intervention ?at this time.? We will monitor/initiate medications and make changes as indicated.?? The patient?s likely length of stay 1-4 days. Coding Level of Care Code Acute Code for [facility] Fwd Diagnoses Schizoaffective disorder F25.9 Schizoaffective disorder type: unspecified
[2024-08-07 19:37] VITALS: BP 142/84; PULSE 94; RESP 16; TEMP 36.9; O2SAT 98
[2024-08-07] MEDS: atorvastatin 40 mg Tablet 20 MG PO (19:56)
[2024-08-08 06:00] VITALS: BP 123/71; PULSE 77; RESP 18; TEMP 36.6; O2SAT 96
[2024-08-08] MEDS: docusate sodium 100 mg Capsule PO (08:25)
[2024-08-08] MEDS: escitalopram 10 mg Tablet PO (08:25)
[2024-08-08] MEDS: pantoprazole DR 40 mg Tablet PO (08:25)
[2024-08-08] MEDS: paliperidone ER 6 mg Tablet PO (08:25)
[2024-08-08] MEDS: loratadine 10 mg Tablet PO (08:25)
[2024-08-08] MEDS: cholecalciferol (vitamin D3) 5,000 unit Tablet 5000 UNIT PO (08:25)
--- NOTE | 2024-08-08 11:48 | DCPLANNER ---
IMM completed with Guardian/sisterJeanine over the phone and copy of rights was placed with pt's discharge plan 08/08/2024 @ 1146.
--- NOTE | 2024-08-08 13:05 | P.NPUDS_ITS ---
Diagnoses at Discharge Discharge Diagnosis (1) Schizoaffective disorder: Status: Chronic Qualifiers: Schizoaffective disorder type: unspecified Qualified Code(s): F25.9 - Schizoaffective disorder, unspecified Reason for Visit Reason for Visit: PHYSICAL ALTERCATION Involuntary Hold Information 96 Hour Hold: 96 Hour Involuntary Admission: Yes Mental Status Exam MSE Comments: This is a slender white male in hospital scrubs with minimal grooming and eye contact. No abnormal movements except for mild psychomotor retardation. Mostly cooperative with exam in mild distress. Speech was limited with more normal rate and volume. Mood described as okay affect odd. Thought process linear. Thought content: Patient denied suicidal homicidal ideation, there were no delusions reported and he appeared less guarded, he denied any auditory or visual hallucinations. Attention and concentration was intact and memory appeared mostly reliable but none were formally tested. He is alert and oriented to person and place. Insight, judgment and impulse control are limited versus impaired. Discharge Data Studies Completed and Pending: Completed Studies During Hospitalization Category Date Time Status XR forearm LT 2V [id number] Stat Exams 08/02/24 16:48 Completed Radiology Impressions Forearm X-Ray 08/02/24 16:48 IMPRESSION: No acute findings. Laboratory Results WBC 9.21 10^3/uL (3.2 9-11.43) 08/02/24 17:36 RBC 4.90 10^6/uL (3.8 5-5.65) 08/02/24 17:36 Hgb 14.70 g/dL (11.27 -16.99) 08/02/24 17:36 Hct 42.4 % (37-53) 08/02/24 17:36 MCV 86.5 fl (82-101) 08/02/24 17:36 MCH 30.0 pg (27-33) 08/02/24 17:36 MCHC 34.7 g/dL (30-55) 08/02/24 17:36 RDW 13.6 % (12.1-15.1 ) 08/02/24 17:36 Plt Count 251 10^3/cmm (157 -399) 08/02/24 17:36 MPV 9.9 fL (7.4-10.4) 08/02/24 17:36 Neut % (Auto) 87.8 % 08/02/24 17:36 Lymph % (Auto) 6.3 % 08/02/24 17:36 [place] % (Auto) 5.0 % 08/02/24 17:36 Eos % (Auto) 0.1 % 08/02/24 17:36 Baso % (Auto) 0.4 % 08/02/24 17:36 Neut # (Auto) 8.08 10^3/uL (1.8 -7.7) H 08/02/24 17:36 Lymph # (Auto) 0.6 10^3/uL (0.8- 4.8) L 08/02/24 17:36 [place] # (Auto) 0.5 10^3/uL (0.2- 0.9) 08/02/24 17:36 Eos # (Auto) 0.0 10^3/uL (0.0- 0.8) 08/02/24 17:36 Baso # (Auto) 0.0 10^3/uL (0.0- 0.1) 08/02/24 17:36 Nucleated RBC % (a uto) 0 % 08/02/24 17:36 Nucleated RBCs # 0.0 /100WBC 08/02/24 17:36 Sodium 142 mmol/L (136-1 45) 08/02/24 17:36 Potassium 3.4 mmol/L (3.5-5 .1) L 08/02/24 17:36 Chloride 107 mmol/L (98-10 7) 08/02/24 17:36 Carbon Dioxide 21 mmol/L (22-29) L 08/02/24 17:36 Anion Gap 17.4 (5-19) 08/02/24 17:36 BUN 16 mg/dL (8-23) 08/02/24 17:36 Creatinine 1.0 mg/dL (0.7-1. 2) 08/02/24 17:36 GFR Calculation 75.2 mL/min (90-1 30) L 08/02/24 17:36 Glucose 127 mg/dL (65-115 ) H 08/02/24 17:36 Calculated Osmolal ity 297 mOsm/kg (285- 295) H 08/02/24 17:36 Calcium 8.7 mg/dL (8.5-10 .5) 08/02/24 17:36 Total Bilirubin 0.4 mg/dL (0.15-1 .2) 08/02/24 17:36 AST 13 U/L (0-40) 08/02/24 17:36 ALT 10 U/L (0-41) 08/02/24 17:36 Alkaline Phosphata se 69 U/L (40-130) 08/02/24 17:36 Total Protein 7.1 g/dL (6.6-8.7 ) 08/02/24 17:36 Albumin 4.0 g/dL (3.5-5.2 ) 08/02/24 17:36 Globulin 3.1 g/dL (1.3-4.6 ) 08/02/24 17:36 TSH 1.16 uIU/mL (0.27 -4.20) 08/02/24 17:36 Urine Color Yellow (Yellow) 08/02/24 18:16 Urine Appearance Clear (CLEAR) 08/02/24 18:16 Urine pH 5.5 (5-7) 08/02/24 18:16 Ur Specific Gravit y 1.021 (1.005-1.0 30) 08/02/24 18:16 Urine Protein 1+ (Negative) A 08/02/24 18:16 Urine Glucose (UA) Negative (Normal ) 08/02/24 18:16 Urine Ketones Negative (Negati ve) 08/02/24 18:16 Urine Blood Negative (Negati ve) 08/02/24 18:16 Urine Nitrate Negative (Negati ve) 08/02/24 18:16 Urine Bilirubin Negative (Negati ve) 08/02/24 18:16 Urine Urobilinogen 1.0 mg/dL (Negati ve) 08/02/24 18:16 Ur Leukocyte Hannah ase Negative (Negati ve) 08/02/24 18:16 Urine RBC 0-4 /hpf (0-2) H 08/02/24 18:16 Urine WBC 0-4 /hpf (0-5) H 08/02/24 18:16 Ur Squamous Epith Cells 0-4 /hpf (0-5) H 08/02/24 18:16 Amorphous Sediment Not Reportable 08/02/24 18:16 Urine Bacteria Trace /hpf (NONE) 08/02/24 18:16 Hyaline Casts 15-25 /lpf H 08/02/24 18:16 Urine Mucus 1+ /hpf 08/02/24 18:16 Ur Oval Fat Bodies Rare /hpf 08/02/24 18:16 Salicylates < 0.3 mg/dL (3-10 ) L 08/02/24 17:36 Urine Opiates Scre en Negative ng/mL (N egative) 08/02/24 18:16 Acetaminophen < 5.0 ug/mL (10-3 0) L 08/02/24 17:36 Ur Barbiturates Sc reen Negative ng/mL (N egative) 08/02/24 18:16 Ur Phencyclidine S crn Negative ng/mL (N egative) 08/02/24 18:16 Ur Amphetamines Sc reen Negative ng/mL (N egative) 08/02/24 18:16 U Benzodiazepines Scrn Negative ng/mL (N egative) 08/02/24 18:16 Urine Cocaine Scre en Negative ng/mL (N egative) 08/02/24 18:16 U Marijuana (THC) Screen Negative ng/mL (N egative) 08/02/24 18:16 Ethyl Alcohol 20 mg/dL (0-10) H 08/02/24 17:36 Vitals: Last Vital Signs Temp 97.8 F 08/08/24 06:00 Pulse 77 08/08/24 06:00 Resp 18 08/08/24 06:00 BP 123/71 08/08/24 06:00 Pulse Ox 96 08/08/24 06:00 O2 Del Method Room Air 08/08/24 06:00 Discharge Plan Discharge Patient Disposition: Home Condition: Stable Prescriptions: New trazodone 50 mg Tablet 50 mg PO BEDTIME PRN (Reason: Sleep) 30 Days Qty: 30 1RF Invega Sustenna 156 mg/mL syringe 156 mg IM Q30D Qty: 1 1RF Rx Instructions: Next injection 09/02/24 paliperidone [Invega] 6 mg tablet extended release 24 hr 6 mg PO Q24H Qty: 3 0RF Rx Instructions: take for 3 days then discontinue Continued cholecalciferol (vitamin D3) 5,000 unit capsule 5,000 unit PO DAILY docusate sodium 100 mg capsule 100 mg PO DAILY Qty: 30 5RF loratadine [Claritin] 10 mg tablet 10 mg PO DAILY Qty: 30 5RF simvastatin 20 mg tablet 20 mg PO BEDTIME Qty: 30 5RF Lexapro 10 mg tablet 10 mg PO DAILY Qty: 30 5RF Rx Instructions: Take one tablet by mouth every morning pantoprazole [Protonix] 40 mg tablet,delayed release (DR/EC) 40 mg PO BID 42 Days Qty: 84 1RF Discontinued Invega Sustenna 117 mg/0.75 mL syringe 117 mg IM Q30D Qty: 0.75 5RF Rx Instructions: Give one injection IM every 30 days Discharge Orders: Discharge Order (Routine); Ordered 08/08/24 Ordered By: Kiel Rascon Referrals: Eva Wills APRN [Nurse Practitioner] - 08/11/24 8:00 am Meron Robles FNP-C [Primary Care Provider] - Discharge Diet: Regular Discharge Activity: Resume usual activity Patient Instructions: Opioid Safety Discharge Attestations NPU Time Spent in Discharge Care*: less than 30 min Specific Discharge Activities: Specific discharge activities: educating patient, discussing with outpatient case manager/social workers/dc planners, documenting/other paperwork and evaluating patient/reviewing data Status at Discharge: Cognitive status at discharge: cognitively intact , Behavioral status at discharge: cooperative , Coding Level of Care Code Acute Code for [facility] Fwd Diagnoses Schizoaffective disorder F25.9 Schizoaffective disorder type: unspecified
[2024-08-08 13:33] VITALS: BP 123/71; PULSE 77; RESP 18; TEMP 36.6; O2SAT 96
[2024-08-08 14:00] VITALS: BP 132/79; PULSE 88; RESP 16; TEMP 36.7; O2SAT 99
== END 2024-08-08 14:42 | disposition home or self-care (01) | DRG 885 ==
LOC: ER 18:49 → NP 19:03
PROVIDERS: Admitting Provider Psychiatry & Neurology Psychiatry; Emergency Provider Emergency Medicine; PCP Nurse Practitioner; Visit Provider Psychiatry & Neurology Psychiatry
DX: F25.9 Schizoaffective disorder, unspecified (principal); G31.84 Mild cognitive impairment of uncertain or unknown etiology; R62.50 Unspecified lack of expected normal physiological development in childhood; K21.9 Gastro-esophageal reflux disease without esophagitis; E55.9 Vitamin D deficiency, unspecified
CPT/HCPCS: 36415; 73090; 80053; 80306; 80307; 81001; 84443; 85025; 93005; 96372; 97150; 97165; 99285

== ENCOUNTER → 2024-08-29 15:00 | Outpatient (BNVA) | payer MEDICARE, OTHER, SELFPAY | PROVIDERS: PCP Nurse Practitioner; Visit Provider Nurse Practitioner | DX: E78.5 Hyperlipidemia, unspecified (principal); R73.9 Hyperglycemia, unspecified | CPT/HCPCS: 80053; 83036; 85025 ==

== ENCOUNTER → 2024-11-28 15:45 | Outpatient (BNVA) | payer MEDICARE, OTHER, SELFPAY | PROVIDERS: PCP Nurse Practitioner; Visit Provider Nurse Practitioner | DX: E78.5 Hyperlipidemia, unspecified (principal); K21.00 Gastro-esophageal reflux disease with esophagitis, without bleeding; J30.9 Allergic rhinitis, unspecified | CPT/HCPCS: 80053; 80061; 84443; 85025 ==

== ENCOUNTER 2025-01-05 17:15 | Emergency (ER) | payer MEDICARE, MEDICAID, SELFPAY ==
[2025-01-05 17:37] VITALS: BP 107/75; PULSE 83; RESP 16; TEMP 36.4; O2SAT 96
[2025-01-05 20:04] LABS: Basophils % 0.5 %; Eosinophils # 0.1 10^3/uL (0.0-0.8); Eosinophils % 1.2 %; Hematocrit 47.3 % (37-53); Lymphocytes % 17.7 %; Mean Corpuscular Hemoglobin 29.1 pg (27-33); Mean Corpuscular Volume 88.1 fl (82-101); Mean Platelet Volume 9.5 fL (7.4-10.4); Monocytes # 0.4 10^3/uL (0.2-0.9); Monocytes % 6.5 %; Neutrophils # 4.29 10^3/uL (1.8-7.7); Neutrophils % 73.9 %; Nucleated Red Blood Cells % 0 %; Platelet Count 270 10^3/cmm (157-399); Red Blood Count 5.37 10^6/uL (3.85-5.65); Red Cell Distribution Width 13.4 % (12.1-15.1); White Blood Count 5.81 10^3/uL (3.29-11.43)
[2025-01-05 20:24] LABS: Anion Gap 16.1 (5-19); Blood Urea Nitrogen 16 mg/dL (8-23); Calcium 9.5 mg/dL (8.5-10.5); Carbon Dioxide 31 mmol/L (22-29); Chloride 94 mmol/L (98-107); Creatinine Clr Calc Pharmacy 49.1558; Glomerular Filtration Rate 47.1 mL/min (90-130); Glucose 101 mg/dL (65-115); Osmolality Calculated 285 mOsm/kg (285-295); Potassium 4.1 mmol/L (3.5-5.1); Sodium 137 mmol/L (136-145)
[2025-01-05 20:49] VITALS: BP 123/85; PULSE 73; RESP 18; O2SAT 99
--- NOTE | 2025-01-05 21:14 | CTR_ITS ---
PROCEDURE INFORMATION: Exam: CT Abdomen And Pelvis With Contrast Exam date and time: 01/05/2025 9:55 PM Age: 64 years old Clinical indication: Abdominal tenderness and fever and nausea; Nausea; Vomiting; Hematemesis; HX of bleeding ulcer TECHNIQUE: Imaging protocol: Computed tomography of the abdomen and pelvis with contrast. Radiation optimization: All CT scans at this facility use at least one of these dose optimization techniques: automated exposure control; mA and/or kV adjustment per patient size (includes targeted exams where dose is matched to clinical indication); or iterative reconstruction. Contrast material: [id number]; Contrast volume: 75 ml; Contrast route: INTRAVENOUS (IV); COMPARISON: CT abdomen pelvis w con* [id number] 10/26/2021 10:58 AM RADIATION DOSE METRICS: Total DLP (mGy-cm): 451.29 FINDINGS: Pleural spaces: Probable trace right pleural effusion. Heart: Heart size is within normal limits. There is no pericardial effusion or pericardial thickening. Liver: The liver is normal. No hepatic masses are identified. Gallbladder and biliary ducts: The gallbladder is surgically absent. There is no ductal dilatation. Pancreas: The pancreas is normal. Spleen: The spleen is normal. Adrenal glands: The adrenal glands are normal. Kidneys and ureters: Stable multifocal cortical scarring and atrophy of the right kidney. Mild multifocal cortical scarring of the left upper pole. There are bilateral subcentimeter renal low-density lesions which are too small for accurate characterization, likely representing simple cysts. There is normal enhancement of the kidneys. No renal calcifications are identified. There is no hydronephrosis. Stomach and bowel: There is no large or small bowel obstruction. There is no evidence of bowel wall thickening. Mixed fat and soft tissue density nodule in the right upper quadrant adjacent to the hepatic flexure is nonspecific and similar in appearance compared to 2020. Appendix: A normal appendix is identified. Intraperitoneal space: No inflammatory changes are identified. There is no free fluid or fluid collection seen. There is no pneumoperitoneum. Vasculature: Atherosclerotic calcifications of the aorta are present. No aneurysm is identified. Lymph nodes: No enlarged lymph nodes are identified. Urinary bladder: Decompressed urinary bladder with diffuse wall thickening likely related to chronic outlet obstruction.Moderate colonic diverticulosis without diverticulitis. Reproductive: Moderate prostatomegaly. Bones/joints: No acute osseous abnormalities are seen. Soft tissues: Small right inguinal hernia containing only fat. CT/CT abdomen pelvis w con* [id number] IMPRESSION: 1. No acute intra-abdominal or pelvic process. 2. Other nonemergent findings above. COMMENTS: Consistent with the [employer]'s Incidental Findings Committee white paper (J Am Taya Radiol 2018): Any incidental renal lesion less than 1 cm or classified as too small to characterize, or any incidental cystic renal lesion characterized as simple-appearing, is likely benign. No follow-up imaging is recommended for these lesions per consensus recommendations based on imaging criteria.
--- NOTE | 2025-01-05 21:15 | ED_ITS ---
HPI - GI Bleed 2 General: Chief complaint: GI Bleed Stated complaint: vomitting Time Seen by Provider: 01/05/25 20:19 History of Present Illness: Patient presents to the ER with complaints of epigastric abdominal pain nausea vomiting and coffee-ground emesis for last 2 days. Patient does have a history of a bleeding ulcer and was on medicine for it but said it got better and he came off of the medicine. Patient is not on any type of anticoagulation. Related Data Home Medications ?Medication ?Instructions ?Recorded ?Confirmed cholecalciferol (vitamin D3) 125 5,000 unit PO DAILY 0 11/07/19 12/26/24 mcg (5,000 unit) capsule Previous Rx's ?Medication ?Instructions ?Recorded loratadine 10 mg tablet (Claritin) 10 mg PO DAILY #30 tabs 11/28/24 simvastatin 20 mg tablet 20 mg PO BEDTIME #30 tabs escitalopram oxalate 10 mg tablet 10 mg PO DAILY #30 t abs 12/18/24 (Lexapro) trazodone 50 mg tablet 50 mg PO BEDTIME PRN Sleep 3 0 days 12/18/24 #30 tabs paliperidone palm (3 month) 546 546 mg (1.75 mL) IM .e very 3 12/26/24 mg/1.75 mL intramuscular syringe months #1.75 mL (Invega Trinza) pantoprazole 40 mg tablet,delayed 40 mg PO DAILY #30 t abs 01/05/25 release (Protonix) Allergies Allergy/AdvReac Type Severity Reaction Status Date / Time No Known Allergies Allergy Verified 12/26/24 10:44 Review of Systems 2 General: Reports: 10 or more systems reviewed and unremarkable except in HPI and below PFSH ED 2 PFSH: Medical History Schizophrenia Family history of colon cancer Psychiatric care Gastritis, unspecified, with bleeding Intellectual disability Schizoaffective disorder History of seizures as a child Allergic rhinitis, unspecified Dyslipidemia Vitamin D insufficiency GERD without esophagitis History of DVT (deep vein thrombosis) Surgical History History of colonoscopy with polypectomy 2023 Dr.Campbell BUCHANAN due 2028 History of endoscopy 2012 Gastric bleed [address] Lavell BUCHANAN Family History Father Cancer Colon Cancer Social History Smoking and tobacco/nicotine status: never used tobacco/nicotine Second hand smoke exposure: No Alcohol intake: never Substance/Drug Use: never Caregiver/support person: Yes (sister) Lives independently: No Household members: family Housing: House Marital status: Single Highest education level completed: High School Graduate service: No Current occupational status: disabled Pets and animals: Yes Do you think of yourself as: Straight/Heterosexual Current gender identity: Male Physical Exam 2 Const: COMMON NORMALS: no acute distress, average body habitus, patient oriented x3, no limitations, healthy appearing, alert and well nourished HENMT: COMMON NORMALS: normocephalic, atraumatic, hearing grossly normal bilaterally, external ears normal, Normal external nose present, moist oral mucous membranes and oropharynx normal HEAD & SCALP: normocephalic and atraumatic NOSE: Normal external nose present EXTERNAL EAR: Yes external ears normal Neck/C-Spine: COMMON NORMALS: no JVD Chest: COMMONS NORMALS: normal inspection of the chest and normal palpation of entire chest wall Resp: COMMON NORMALS: normal respiratory effort, No retractions, No use of accessory muscles and clear to auscultation bilaterally AUSCULTATION: clear to auscultation bilaterally Cardio: COMMON NORMALS: no JVD, regular rate, regular rhythm, S1 normal heart sound present, S2 normal heart sound present, No gallops present (Cardio), No clicks present (Cardio), No murmurs present (Cardio) and No rub (Cardio) R ATE: regular rate RHYTHM: regular rhythm HEART SOUNDS: S1 normal heart sound present and S2 normal heart sound present GI: COMMON NORMALS: Normal to inspection, nondistended, normoactive bowel sounds present, Soft to palpation, No hepatosplenomegaly present and no masses; negative for non-tender (Mild tender to palpation over epigastric area) P ALPATION: Yes Soft to palpation and Yes No hepatosplenomegaly present Neuro: COMMON NORMALS: patient oriented x3 SENSORIUM/ORIENTATION: Yes alert Course 2 Vital Signs: Vital signs: Vital Signs Temperature 97.6 F 01/05/25 17:37 Pulse Rate 72 01/05/25 21:32 Respiratory Rate 18 01/05/25 21:32 Blood Pressure 109/80 01/05/25 21:32 Pulse Oximetry 99 01/05/25 21:32 Oxygen Delivery Me thod Room Air 01/05/25 21:32 MDM - GI Bleed Medical Decision Making Lab work was obtained which was unremarkable other than mildly elevated creatinine at 1.5, hemoglobin was 15.6, contrasted CT scan of the abdomen pelvis was obtained which showed no acute intra-abdominal or pelvic processes. Patient was given Protonix 40 mg and Zofran 4 mg. These results were discussed with the patient and family. Patient will be referred back to his PCP for further evaluation. Patient will be started back on Protonix. Medical Records I reviewed the patient's medical records. Lab Data I reviewed the patient's lab results. 01/05/25 19:51 01/05/25 19:51 Radiology Impressions Abdomen/Pelvis CT 01/05/25 21:14 IMPRESSION: 1. No acute intra-abdominal or pelvic process. 2. Other nonemergent findings above. COMMENTS: Consistent with the [employer]'s Incidental Findings Committee white paper (J Am Taya Radiol 2018): Any incidental renal lesion less than 1 cm or classified as too small to characterize, or any incidental cystic renal lesion characterized as simple-appearing, is likely benign. No follow-up imaging is recommended for these lesions per consensus recommendations based on imaging criteria. Laboratory Results WBC 5.81 10^3/uL (3.29-11.43) 01/05/25 19:51 RBC 5.37 10^6/uL (3.85-5.65) 01/05/25 19:51 Hgb 15.60 g/dL (11.27-16.99) 01/05/25 19:51 Hct 47.3 % (37-53) 01/05/25 19:51 MCV 88.1 fl (82-101) 01/05/25 19:51 MCH 29.1 pg (27-33) 01/05/25 19:51 MCHC 33.0 g/dL (30-55) 01/05/25 19:51 RDW 13.4 % (12.1-15.1) 01/05/25 19:51 Plt Count 270 10^3/cmm (157-399) 01/05/25 19:51 MPV 9.5 fL (7.4-10.4) 01/05/25 19:51 Neut % (Auto) 73.9 % 01/05/25 19:51 Lymph % (Auto) 17.7 % 01/05/25 19:51 Guadalupe % (Auto) 6.5 % 01/05/25 19:51 Eos % (Auto) 1.2 % 01/05/25 19:51 Baso % (Auto) 0.5 % 01/05/25 19:51 Neut # (Auto) 4.29 10^3/uL (1.8-7.7) 01/05/25 19:51 Lymph # (Auto) 1.0 10^3/uL (0.8-4.8) 01/05/25 19:51 Guadalupe # (Auto) 0.4 10^3/uL (0.2-0.9) 01/05/25 19:51 Eos # (Auto) 0.1 10^3/uL (0.0-0.8) 01/05/25 19:51 Baso # (Auto) 0.0 10^3/uL (0.0-0.1) 01/05/25 19:51 Nucleated RBC % (auto) 0 % 01/05/25 19: Nucleated RBCs # 0.0 /100WBC 01/05/25 19:51 Sodium 137 mmol/L (136-145) 01/05/25 19:51 Potassium 4.1 mmol/L (3.5-5.1) 01/05/25 19:51 Chloride 94 mmol/L (98-107) L 01/05/25 19:51 Carbon Dioxide 31 mmol/L (22-29) H 01/05/25 19:51 Anion Gap 16.1 (5-19) 01/05/25 19:51 BUN 16 mg/dL (8-23) 01/05/25 19:51 Creatinine 1.5 mg/dL (0.7-1.2) H 01/05/25 19:51 GFR Calculation 47.1 mL/min (90-130) L 01/05/25 19:51 Glucose 101 mg/dL (65-115) 01/05/25 19:51 Calculated Osmolality 285 mOsm/kg (285-295) 01/05/25 19:51 Calcium 9.5 mg/dL (8.5-10.5) 01/05/25 19:51 All radiology interpretation(s) finalized by discharge Discharge Plan Discharge Patient Disposition: Home Clinical Impression: Coffee ground emesis, History of peptic ulcer disease Condition: Stable Prescriptions: New pantoprazole [Protonix] 40 mg tablet,delayed release (DR/EC) 40 mg PO DAILY Qty: 30 0RF No Action cholecalciferol (vitamin D3) 5,000 unit capsule 5,000 unit PO DAILY loratadine [Claritin] 10 mg tablet 10 mg PO DAILY Qty: 30 5RF simvastatin 20 mg tablet 20 mg PO BEDTIME Qty: 30 5RF Invega Trinza 546 mg/1.75 mL syringe 546 mg IM .every 3 months Qty: 1.75 3RF Rx Instructions: Administer one injection IM every 3 months; discontinue Invega Sustenna injection trazodone 50 mg tablet 50 mg PO BEDTIME PRN (Reason: Sleep) 30 Days Qty: 30 5RF Rx Instructions: Take one tablet, if needed, for sleep escitalopram oxalate [Lexapro] 10 mg tablet 10 mg PO DAILY Qty: 30 5RF Rx Instructions: Take one tablet by mouth every morning Discharge Orders: Discharge ED (Routine); Ordered 01/05/25 Ordered By: Praveen Fontana Referrals: Meron Robles, HOME APPLIANCE TECH-C [Primary Care Provider] - 1 week Patient Instructions: Peptic Ulcer (ED), Diet for Stomach Ulcers and Gastritis (ED), Hematemesis (ED) Activity Restrictions/Additional Instructions: The prescription was sent to your pharmacy for Protonix. This medicine will help with any irritation in your stomach or ulcer that he may had. Please follow-up with your family practice physician within next 7 days for further evaluation treatment as needed. Thank you for choosing [facility] for your healthcare needs today. Please realize that you were seen in the emergency department and that we are providing you with an emergency medical screening exam and this may not be a complete and all exclusive of all testing and/or medical workup we may need to determine your element or severity of your illness. It is very important that you follow-up as instructed with your primary care provider or specialist for the additional evaluation and to discuss your medical treatment plan. You may return to the emergency department should you have concerns or if your condition changes or worsens in any way. Print Language: Armenian Coding Level of Care Code ED [employer] for Brenda Richey
[2025-01-05] MEDS: ondansetron hcl ODT 4 mg Tab PO (21:28)
[2025-01-05] MEDS: pantoprazole DR 40 mg Tablet PO (21:28)
[2025-01-05 21:32] VITALS: BP 109/80; PULSE 72; RESP 18; O2SAT 99
[2025-01-05] MEDS: iohexol 350 mg/mL 500 mL Btl (per mL) IV (21:59)
[2025-01-06 00:27] VITALS: BP 123/89; PULSE 84; RESP 20; O2SAT 98
== END 2025-01-06 00:28 | disposition home or self-care (01) ==
PROVIDERS: Emergency Provider Emergency Medicine; PCP Nurse Practitioner
DX: R11.10 Vomiting, unspecified (principal); Z87.11 Personal history of peptic ulcer disease; E78.5 Hyperlipidemia, unspecified
CPT/HCPCS: 36415; 74177; 80048; 85025; 99285; Q0162

== ENCOUNTER → 2025-06-14 16:18 | Outpatient (BNVA) | payer MEDICARE, MEDICAID, SELFPAY | PROVIDERS: PCP Nurse Practitioner; Visit Provider Nurse Practitioner | DX: K21.00 Gastro-esophageal reflux disease with esophagitis, without bleeding (principal); Z12.5 Encounter for screening for malignant neoplasm of prostate; E78.5 Hyperlipidemia, unspecified | CPT/HCPCS: 80053; 80061; 82607; 85025; G0103 ==

== ENCOUNTER → 2025-08-29 11:51 | Outpatient (BNVA) | payer MEDICARE, MEDICAID, SELFPAY | PROVIDERS: PCP Nurse Practitioner; Visit Provider Nurse Practitioner | DX: R32 Unspecified urinary incontinence (principal) | CPT/HCPCS: 80048; 81000 ==

== ENCOUNTER → 2025-09-03 10:43 | Outpatient (BNVA) | payer MEDICARE, MEDICAID, SELFPAY | PROVIDERS: PCP Nurse Practitioner; Visit Provider Nurse Practitioner | DX: M47.816 Spondylosis without myelopathy or radiculopathy, lumbar region (principal); Z98.890 Other specified postprocedural states | CPT/HCPCS: 72072; 72100 ==